=== PATIENT | male | born 1975 | race Caucasian/White ===

== ENCOUNTER → 2016-09-17 | Outpatient (CLI) | payer OTHER ==
--- NOTE | 2016-09-18 16:46 | XR ---
EXAMINATION TYPE: XR lumbosacral spine min 4V DATE OF EXAM: 09/17/2016 11:27 AM COMPARISON: 5 views HISTORY: 41-year-old male with low back pain increasing over 2 months TECHNIQUE: 5 views FINDINGS: There is mild endplate spondylosis anteriorly such as at L3-L4. Additional mild degenerative disc dis ease at T12-L1 with disc interspace narrowing and some endplate sclerosis. Facet arthropathy mid to l ower lumbar spine. No vertebral compression collapse. Alignment is maintained. IMPRESSION: Scattered mild degenerative disc disease. Facet arthropathy mid to lower lumbar spine. No vertebral c ompression collapse or malalignment.
== END | disposition home or self-care (01) ==
LOC: RADXRYALE 11:08
PROVIDERS: ATTEND Internal Medicine
DX: M51.36 Other intervertebral disc degeneration, lumbar region (principal); M46.96 Unspecified inflammatory spondylopathy, lumbar region
CPT/HCPCS: 72110

== ENCOUNTER 2020-05-24 14:43 | Emergency (ER) | payer OTHER ==
[2020-05-24 14:52] VITALS: BP 157/102; PULSE 99; RESP 18; TEMP 98.6
--- NOTE | 2020-05-24 15:17 | ED ---
Male Urogenital HPI - General Chief complaint: Urogenital Stated complaint: UTI Source: patient Mode of arrival: ambulatory Limitations: no limitations - History of Present Illness Initial comments: 44-year-old male presenting to emergency department with a chief complaint of discharge from the penis. Patient states he had surgery about 3 months ago and had a urinary catheter placed during the procedure. Patient reports ever since, he developed intermittent burning sensation with urination. Patient reports has gotten progressively worse as time went on. Patient reports today he squeezes his penis and noticed white discharge. Patient states he has no concern for STDs. He denies any testicular swelling, tenderness. He also reports some obstructive urinary symptoms like dribbling. Denies any night sweats fevers or chills. Denies any back pain or abdominal pain. - Related Data Home Medications Medication Instructions Recorded Confirmed Arginine [l-Arginine] 500 mg PO DAILY 05/24/20 05/24/20 Cyanocobalamin (Vitamin B-12) 10,000 mcg PO DAILY 05/24/20 05/24/20 [Vitamin B-12] Glimepiride [Amaryl] 4 mg PO DAILY 05/24/20 05/24/20 Omeprazole Magnesium 20 mg PO BID PRN 05/24/20 05/24/20 Pyridoxine HCl (Vitamin B6) 100 mg PO DAILY 05/24/20 05/24/20 [Vitamin B-6] metFORMIN HCL [Glucophage] 500 mg PO BID 05/24/20 05/24/20 Previous Rx's Medication Instructions Recorded Ciprofloxacin HCl [Cipro] 500 mg PO Q12HR #20 tablet 05/24/20 Allergies Allergy/AdvReac Type Severity Reaction Status Date / Time No Known Allergies Allergy Verified 05/24/20 15:41 Review of Systems ROS Statement: Those systems with pertinent positive or pertinent negative responses have been documented in the HPI. ROS Other: All systems not noted in ROS Statement are negative. Past Medical History Past Medical History: Asthma, Diabetes Mellitus, GERD/Reflux, Hypertension, Myocardial Infarction ([place]), Pneumonia, Sleep Apnea/CPAP/BIPAP Additional Past Medical History / Comment(s): 03-08-16 no cpap machine used, pancreatitis Last Myocardial Infarction Date:: History of Any Multi-Drug Resistant Organisms: None Reported Past Surgical History: Tonsillectomy Additional Past Surgical History / Comment(s): 03/08/16 heart cath stent to 1st diag Past Anesthesia/Blood Transfusion Reactions: No Reported Reaction Past Psychological History: No Psychological Hx Reported Smoking Status: Never smoker Past Alcohol Use History: Occasional Past Drug Use History: Marijuana - Past Family History Mother Family Medical History: Fibromyalgia, Osteoarthritis (OA) Additional Family Medical History / Comment(s): djd/hip replacement, von willebrand's, brother and sister had von willebrand's to. Father Family Medical History: CVA/TIA, Hyperlipidemia, Hypertension, Myocardial Infarction ([place]) Additional Family Medical History / Comment(s): boarderline diabetic Brother(s) Family Medical History: Myocardial Infarction ([place]) General Exam Limitations: no limitations General appearance: alert, in no apparent distress Head exam: Present: atraumatic, normocephalic, normal inspection Eye exam: Present: normal appearance, PERRL, EOMI Pupils: Present: normal accommodation ENT exam: Present: normal exam, normal oropharynx, mucous membranes moist Neck exam: Present: normal inspection, full ROM Respiratory exam: Present: normal lung sounds bilaterally. Absent: respiratory distress, wheezes, rales Cardiovascular Exam: Present: regular rate, normal rhythm, normal heart sounds exam: Present: normal inspection (White discharge from the penis). Absent: testicular tenderness, urethral discharge, scrotal swelling, vertical testicular lie Extremities exam: Present: normal inspection, full ROM, normal capillary refill Back exam: Present: normal inspection, full ROM Neurological exam: Present: alert, oriented X3, normal gait Psychiatric exam: Present: normal affect, normal mood Skin exam: Present: warm, dry, intact, normal color Course Vital Signs 05/24/20 14:48 Temperature 98.6 F Pulse Rate 99 Respiratory 18 Rate Blood Pressure 157/102 O2 Sat by Pulse 99 Oximetry Medical Decision Making - Medical Decision Making 44-year-old male presenting to emergency Department chief complaint of discharge from the penis. On physical examination, I noticed white discharge from the penis. Gonorrhea chlamydia testing pending. UA shows positive leukocyte esterase and white blood cells. Urine culture pending. Positive nitrates. Pa sarai will be started on Cipro to cover for E.coli. Will be discharged with a 10 day course of Cipro. Patient advised about the side effects of the medication. He was advised to avoid significant physical activity. States he has not taken his blood pressure medication today so his blood pressure may be high. Strict return parameters were thoroughly discussed with patient is understanding and agreeable. I advised him to follow up with a urologist for the obstructive urinary symptoms. Case discussed physician. - Lab Data Lab Results 05/24/20 Range/Units 15:19 Urine Color Yellow Urine Appearance Cloudy (Clear) Urine pH 6.0 (5.0-8.0) Ur Specific [place] 1.027 (1.001-1.035) Urine Protein Trace H (Negative) Urine Glucose (UA) Negative (Negative) Urine Ketones Trace H (Negative) Urine Blood Trace H (Negative) Urine Nitrite Positive (Negative) Urine Bilirubin Negative (Negative) Urine Urobilinogen <2.0 (<2.0) mg/dL Ur Leukocyte Esterase Large H (Negative) Urine RBC 16 H (0-5) /hpf Urine WBC >182 H (0-5) /hpf Urine Bacteria Many H (None) /hpf Urine Mucus Many H (None) /hpf Disposition Clinical Impression: Urinary tract infection Disposition: HOME SELF-CARE Condition: Stable Instructions (If sedation given, give patient instructions): Urinary Tract Infection in Men (ED) Additional Instructions: Take prescribed medication as directed. Follow-up with the primary care physician. Please return to the Emergency Department if symptoms worsen or any other concerns. Prescriptions: Ciprofloxacin HCl [Cipro] 500 mg PO Q12HR #20 tablet Is patient prescribed a controlled substance at d/c from ED?: No Referrals: Zahira Cartwright MD [Primary Care Provider] - 1-2 days Homer Fletcher MD [STAFF PHYSICIAN] - 1-2 days Time of Disposition: 16:13
[2020-05-24 15:36] LABS: Appearance,Urine Cloudy (Clear); Bacteria,Urine Many /hpf; Bilirubin,Urine Negative (Negative); Blood,Urine Trace (Negative); Color,Urine Yellow; Glucose,Urine (UA) Negative (Negative); Ketones,Urine Trace (Negative); Leukocyte Esterase,Urine Large (Negative); Mucus,Urine Many /hpf; Nitrite,Urine Positive (Negative); Protein,Urine Trace (Negative); RBC,Urine 16 /hpf (0-5); Specific Gravity,Urine 1.027 (1.001-1.035); Urobilinogen,Urine <2.0 mg/dL (<2.0); WBC,Urine >182 /hpf (0-5)
[2020-05-24] MEDS ORDERED: CIPROFLOXACIN HCL 500 MG TAB PO STA (16:12)
[2020-05-25 14:46] LABS: C. trachomatis,PCR Negative (Neg,Equiv); Chlamydia trachomatis Source Urine; N. gonorrhoeae,PCR Negative (Neg,Equiv); Neisseria Source Urine
== END 2020-05-24 16:29 | disposition home or self-care (01) ==
LOC: EC 14:43
DX: N39.0 Urinary tract infection, site not specified (principal); E11.9 Type 2 diabetes mellitus without complications; I10 Essential (primary) hypertension; J45.909 Unspecified asthma, uncomplicated; I25.2 Old myocardial infarction; G47.30 Sleep apnea, unspecified; Z79.899 Other long term (current) drug therapy; Z79.84 Long term (current) use of oral hypoglycemic drugs; Z99.89 Dependence on other enabling machines and devices
CPT/HCPCS: 81001; 87086; 87491; 87591; 99283

== ENCOUNTER 2020-06-07 08:30 | Emergency (ER) | payer BC, OTHER ==
[2020-06-07 08:35] VITALS: RESP 18; TEMP 98
[2020-06-07] MEDS ORDERED: ASPIRIN 81 MG PO STA (08:53)
--- NOTE | 2020-06-07 09:13 | ED ---
General Adult HPI - General Chief complaint: Recheck/Abnormal Lab/Rx Stated complaint: UTI-revisit Time Seen by Provider: 06/07/20 08:45 Source: patient, RN notes reviewed Mode of arrival: ambulatory Limitations: no limitations - History of Present Illness Initial comments: This a 44-year-old male presents emergency Department with multiple complaints. Patient was seen here approximately 10 days ago for urinary tract infection. Patient states that he took the antibiotic states it helped some but did not resolve. Patient's eyes dysuria, urinary frequency. Patient states started after having surgery at [facility]. Patient states he had blood with angina. Patient did have a catheter at that time. Patient states that she also has been having some intermittent chest pain which he had a myocardial infarction 4 years ago. Patient states he has one stent. He has no current chest pain states he did have pain last night. Patient states he has no associated shortness of breath no recent fevers or chills. No back pain no flank pain. - Related Data Home Medications Medication Instructions Recorded Confirmed Arginine [l-Arginine] 500 mg PO DAILY 05/24/20 06/07/20 Cyanocobalamin (Vitamin B-12) 10,000 mcg PO DAILY 05/24/20 06/07/20 [Vitamin B-12] Glimepiride [Amaryl] 4 mg PO DAILY 05/24/20 06/07/20 Omeprazole Magnesium 20 mg PO BID PRN 05/24/20 06/07/20 Pyridoxine HCl (Vitamin B6) 100 mg PO DAILY 05/24/20 06/07/20 [Vitamin B-6] metFORMIN HCL [Glucophage] 500 mg PO BID 05/24/20 06/07/20 Ascorbic Acid [Vitamin C] 3,000 mg PO DAILY 06/07/20 06/07/20 Black Seed Oil 6 ml PO DAILY 06/07/20 06/07/20 [place] 1 tab PO DAILY 06/07/20 06/07/20 Magnesium Oxide 800 mg PO DAILY 06/07/20 06/07/20 Thiamine [Vitamin B-1] 100 mg PO DAILY 06/07/20 06/07/20 Vitamin D Liquid 6,000 - 8,000 units SL DAILY 06/07/20 06/07/20 Zinc 50 mg PO DAILY 06/07/20 06/07/20 Previous Rx's Medication Instructions Recorded Ondansetron Odt [Zofran Odt] 4 mg PO Q8HR PRN #10 tab 06/07/20 Sulfamethox-Tmp 800-160Mg [Bactrim 1 each PO Q12HR #28 tab 06/07/20 Ds] Allergies Allergy/AdvReac Type Severity Reaction Status Date / Time No Known Allergies Allergy Verified 06/07/20 09:45 Review of Systems ROS Statement: Those systems with pertinent positive or pertinent negative responses have been documented in the HPI. ROS Other: All systems not noted in ROS Statement are negative. Past Medical History Past Medical History: Asthma, Diabetes Mellitus, GERD/Reflux, Hypertension, Myocardial Infarction ([place]), Pneumonia, Sleep Apnea/CPAP/BIPAP Additional Past Medical History / Comment(s): 03-08-16 no cpap machine used, pancreatitis Last Myocardial Infarction Date:: History of Any Multi-Drug Resistant Organisms: None Reported Past Surgical History: Tonsillectomy Additional Past Surgical History / Comment(s): 03/08/16 heart cath stent to 1st diag Past Anesthesia/Blood Transfusion Reactions: No Reported Reaction Past Psychological History: No Psychological Hx Reported Smoking Status: Never smoker Past Alcohol Use History: Occasional Past Drug Use History: Marijuana - Past Family History Mother Family Medical History: Fibromyalgia, Osteoarthritis (OA) Additional Family Medical History / Comment(s): djd/hip replacement, von willebrand's, brother and sister had von willebrand's to. Father Family Medical History: CVA/TIA, Hyperlipidemia, Hypertension, Myocardial Infarction ([place]) Additional Family Medical History / Comment(s): boarderline diabetic Brother(s) Family Medical History: Myocardial Infarction ([place]) General Exam Limitations: no limitations General appearance: alert, in no apparent distress Head exam: Present: atraumatic, normocephalic, normal inspection Eye exam: Present: normal appearance, PERRL, EOMI. Absent: scleral icterus, conjunctival injection, periorbital swelling ENT exam: Present: normal exam, normal oropharynx, mucous membranes moist, TM's normal bilaterally Neck exam: Present: normal inspection, full ROM. Absent: tenderness, meningismus, lymphadenopathy Respiratory exam: Present: normal lung sounds bilaterally. Absent: respiratory distress, wheezes, rales, rhonchi, stridor Cardiovascular Exam: Present: regular rate, normal rhythm, normal heart sounds. Absent: systolic murmur, diastolic murmur, rubs, gallop, clicks GI/Abdominal exam: Present: soft, normal bowel sounds. Absent: distended, tenderness, guarding, rebound, rigid Back exam: Absent: CVA tenderness (R), CVA tenderness (L) Neurological exam: Present: alert, oriented X3 Skin exam: Present: warm, dry, intact, normal color. Absent: rash Course Vital Signs 06/07/20 06/07/20 08:31 10:11 Temperature 98.0 F Pulse Rate 90 87 Respiratory 18 18 Rate Blood Pressure 146/96 148/105 O2 Sat by Pulse 98 98 Oximetry EKG Findings - EKG Comments: EKG Findings:: EKG performed at 9:04 normal sinus rhythm rate 93 SD 156 QRS 96 QT/ QTC 360/447 Medical Decision Making - Medical Decision Making Patient's lab reviewed patient has a mild packages coronary tract infection. Patient will be placed on a 2 week course of oral antibiotics. Patient remains to be symptom-free for chest pain. Patient's pain more related to his mild pancreatitis which she has a history of. Patient will continue her liquid diet, antibiotics and close follow-up. Patient agrees a plan patient prefers to go home at this time. - Lab Data Result diagrams: 06/07/20 09:30 06/07/20 09:30 Lab Results 06/07/20 06/07/20 06/07/20 Range/Units 09:18 09:30 09:30 WBC 8.8 (3.8-10.6) k/uL RBC 5.41 (4.30-5.90) m/uL Hgb 15.9 (13.0-17.5) gm/dL Hct 47.1 (39.0-53.0) % MCV 87.0 (80.0-100.0) fL MCH 29.3 (25.0-35.0) pg MCHC 33.7 (31.0-37.0) g/dL RDW 13.6 (11.5-15.5) % Plt Count 318 (150-450) k/uL MPV 6.7 Neutrophils % 65 % Lymphocytes % 27 % Monocytes % 4 % Eosinophils % 1 % Basophils % 1 % Neutrophils # 5.7 (1.3-7.7) k/uL Lymphocytes # 2.4 (1.0-4.8) k/uL Monocytes # 0.4 (0-1.0) k/uL Eosinophils # 0.1 (0-0.7) k/uL Basophils # 0.1 (0-0.2) k/uL PT 10.0 (9.0-12.0) sec INR 0.9 (<1.2) APTT 23.8 (22.0-30.0) sec D-Dimer <0.17 (<0.60) mg/L FEU Sodium (137-145) mmol/L Potassium (3.5-5.1) mmol/L Chloride (98-107) mmol/L Carbon Dioxide (22-30) mmol/L Anion Gap mmol/L BUN (9-20) mg/dL Creatinine (0.66-1.25) mg/dL Est GFR (CKD-EPI)AfAm (>60 ml/min/1.73 sqM) Est GFR (CKD-EPI)NonAf (>60 ml/min/1.73 sqM) Glucose (74-99) mg/dL Plasma Lactic Acid Manuel (0.7-2.0) mmol/L Calcium (8.4-10.2) mg/dL Magnesium (1.6-2.3) mg/dL Total Bilirubin (0.2-1.3) mg/dL AST (17-59) U/L ALT (4-49) U/L Alkaline Phosphatase (38-126) U/L Troponin I (0.000-0.034) ng/mL Total Protein (6.3-8.2) g/dL Albumin (3.5-5.0) g/dL Lipase (23-300) U/L Urine Color Yellow Urine Appearance Cloudy (Clear) Urine pH 5.5 (5.0-8.0) Ur Specific [place] 1.026 (1.001-1.035) Urine Protein Negative (Negative) Urine Glucose (UA) Negative (Negative) Urine Ketones Trace H (Negative) Urine Blood Negative (Negative) Urine Nitrite Negative (Negative) Urine Bilirubin Negative (Negative) Urine Urobilinogen <2.0 (<2.0) mg/dL Ur Leukocyte Esterase Large H (Negative) Urine RBC 13 H (0-5) /hpf Urine WBC 101 H (0-5) /hpf Urine WBC Clumps Few H (None) /hpf Ur Squamous Epith Cells 1 (0-4) /hpf Urine Bacteria Rare H (None) /hpf Urine Mucus Occasional H (None) /hpf 06/07/20 06/07/20 06/07/20 Range/Units 09:30 09:30 09:30 WBC (3.8-10.6) k/uL RBC (4.30-5.90) m/uL Hgb (13.0-17.5) gm/dL Hct (39.0-53.0) % MCV (80.0-100.0) fL MCH (25.0-35.0) pg MCHC (31.0-37.0) g/dL RDW (11.5-15.5) % Plt Count (150-450) k/uL MPV Neutrophils % % Lymphocytes % % Monocytes % % Eosinophils % % Basophils % % Neutrophils # (1.3-7.7) k/uL Lymphocytes # (1.0-4.8) k/uL Monocytes # (0-1.0) k/uL Eosinophils # (0-0.7) k/uL Basophils # (0-0.2) k/uL PT (9.0-12.0) sec INR (<1.2) APTT (22.0-30.0) sec D-Dimer (<0.60) mg/L FEU Sodium 136 L (137-145) mmol/L Potassium 4.5 (3.5-5.1) mmol/L Chloride 101 (98-107) mmol/L Carbon Dioxide 24 (22-30) mmol/L Anion Gap 11 mmol/L BUN 28 H (9-20) mg/dL Creatinine 0.74 (0.66-1.25) mg/dL Est GFR (CKD-EPI)AfAm >90 (>60 ml/min/1.73 sqM) Est GFR (CKD-EPI)NonAf >90 (>60 ml/min/1.73 sqM) Glucose 191 H (74-99) mg/dL Plasma Lactic Acid Manuel 1.6 (0.7-2.0) mmol/L Calcium 9.8 (8.4-10.2) mg/dL Magnesium 1.8 (1.6-2.3) mg/dL Total Bilirubin 0.4 (0.2-1.3) mg/dL AST 26 (17-59) U/L ALT 33 (4-49) U/L Alkaline Phosphatase 85 (38-126) U/L Troponin I <0.012 (0.000-0.034) ng/mL Total Protein 7.0 (6.3-8.2) g/dL Albumin 4.5 (3.5-5.0) g/dL Lipase 376 H (23-300) U/L Urine Color Urine Appearance (Clear) Urine pH (5.0-8.0) Ur Specific [place] (1.001-1.035) Urine Protein (Negative) Urine Glucose (UA) (Negative) Urine Ketones (Negative) Urine Blood (Negative) Urine Nitrite (Negative) Urine Bilirubin (Negative) Urine Urobilinogen (<2.0) mg/dL Ur Leukocyte Esterase (Negative) Urine RBC (0-5) /hpf Urine WBC (0-5) /hpf Urine WBC Clumps (None) /hpf Ur Squamous Epith Cells (0-4) /hpf Urine Bacteria (None) /hpf Urine Mucus (None) /hpf Disposition Clinical Impression: Urinary tract infection, Pancreatitis Disposition: HOME SELF-CARE Condition: Stable Instructions (If sedation given, give patient instructions): Urinary Tract Infection in Men (ED) Additional Instructions: Please return to the Emergency Department if symptoms worsen or any other concerns. Prescriptions: Sulfamethox-Tmp 800-160Mg [Bactrim Ds] 1 each PO Q12HR #28 tab Ondansetron Odt [Zofran Odt] 4 mg PO Q8HR PRN #10 tab PRN Reason: Nausea Is patient prescribed a controlled substance at d/c from ED?: No Referrals: Neymar Oviedo MD [Primary Care Provider] - 1-2 days Time of Disposition: 10:47
[2020-06-07 09:42] LABS: Basophils # (A) 0.1 k/uL (0-0.2); Basophils % (A) 1 %; Eosinophils # (A) 0.1 k/uL (0-0.7); Eosinophils % (A) 1 %; HCT 47.1 % (39.0-53.0); HGB 15.9 gm/dL (13.0-17.5); Lymphocytes # (A) 2.4 k/uL (1.0-4.8); Lymphocytes % (A) 27 %; MCH 29.3 pg (25.0-35.0); MCHC 33.7 g/dL (31.0-37.0); Mean Platelet Volume 6.7; Monocytes # (A) 0.4 k/uL (0-1.0); Monocytes % (A) 4 %; Neutrophils # (A) 5.7 k/uL (1.3-7.7); Neutrophils % (A) 65 %; Platelet Count 318 k/uL (150-450); RBC 5.41 m/uL (4.30-5.90); RDW 13.6 % (11.5-15.5); WBC 8.8 k/uL (3.8-10.6)
--- NOTE | 2020-06-07 09:42 | XR ---
EXAMINATION TYPE: XR chest 2V DATE OF EXAM: 06/07/2020 COMPARISON: Chest x-ray April 11, 2016. HISTORY: Chest pain. TECHNIQUE: Frontal and lateral views of the chest are obtained. FINDINGS: There is no new suspicious focal air space opacity, pleural effusion, or pneumothorax seen . The cardiac silhouette size remains within normal limits. Slight underlying scoliotic curvature re demonstrated. IMPRESSION: No acute cardiopulmonary process. No significant change from prior.
[2020-06-07 09:43] LABS: Appearance,Urine Cloudy (Clear); Bacteria,Urine Rare /hpf; Bilirubin,Urine Negative (Negative); Blood,Urine Negative (Negative); Color,Urine Yellow; Glucose,Urine (UA) Negative (Negative); Ketones,Urine Trace (Negative); Leukocyte Esterase,Urine Large (Negative); Mucus,Urine Occasional /hpf; Nitrite,Urine Negative (Negative); PH, Urine 5.5 (5.0-8.0); Protein,Urine Negative (Negative); RBC,Urine 13 /hpf (0-5); Specific Gravity,Urine 1.026 (1.001-1.035); Squamous Epithelial Cell,Urine 1 /hpf (0-4); Urobilinogen,Urine <2.0 mg/dL (<2.0); WBC,Urine 101 /hpf (0-5)
[2020-06-07 09:52] LABS: ALT 33 U/L (4-49); AST 26 U/L (17-59); African American GFR (CKD) >90 (>60 ml/min/1.73 sqM); Albumin 4.5 g/dL (3.5-5.0); Alkaline Phosphatase 85 U/L (38-126); Anion Gap 11 mmol/L; Blood Urea Nitrogen 28 mg/dL (9-20); Calcium 9.8 mg/dL (8.4-10.2); Carbon Dioxide 24 mmol/L (22-30); Chloride 101 mmol/L (98-107); Glucose 191 mg/dL (74-99); Lipase 376 U/L (23-300); Magnesium 1.8 mg/dL (1.6-2.3); Non-African American GFR(CKD) >90 (>60 ml/min/1.73 sqM); Potassium 4.5 mmol/L (3.5-5.1); Sodium 136 mmol/L (137-145); Total Bilirubin 0.4 mg/dL (0.2-1.3)
[2020-06-07 10:01] LABS: INR 0.9 (<1.2); Partial Thromboplastin Time 23.8 sec (22.0-30.0)
[2020-06-07 10:02] LABS: D-Dimer <0.17 mg/L FEU (<0.60)
[2020-06-07 10:12] VITALS: BP 148/105; PULSE 87
[2020-06-07] MEDS ORDERED: ACET/COD 300 MG/30 MG STARTER PACK 6 TAB BTL PO STA (10:48)
== END 2020-06-07 11:02 | disposition home or self-care (01) ==
LOC: EC 08:30
DX: N39.0 Urinary tract infection, site not specified (principal); K85.90 Acute pancreatitis without necrosis or infection, unspecified; E11.9 Type 2 diabetes mellitus without complications; K21.9 Gastro-esophageal reflux disease without esophagitis; I10 Essential (primary) hypertension; G47.33 Obstructive sleep apnea (adult) (pediatric); I25.2 Old myocardial infarction; Z79.84 Long term (current) use of oral hypoglycemic drugs; Z79.899 Other long term (current) drug therapy; Z99.89 Dependence on other enabling machines and devices
CPT/HCPCS: 36415; 93005; 85379; 80053; 83605; 83690; 83735; 84484; 85025; 85610; 85730; 81001; 87040; 87086; 71046; 99284; 96365; J0696

== ENCOUNTER 2020-10-21 21:43 | Observation (INO) | payer BC ==
--- NOTE | 2020-10-21 22:10 | ED ---
Chest Pain HPI - General Chief Complaint: Chest Pain Stated Complaint: Chest Pain Time Seen by Provider: 10/21/20 21:53 Source: patient Mode of arrival: wheelchair Limitations: no limitations - Related Data Home Medications Medication Instructions Recorded Confirmed Glimepiride [Amaryl] 4 mg PO DAILY 05/24/20 10/21/20 metFORMIN HCL [Glucophage] 500 mg PO BID 05/24/20 10/21/20 Gabapentin [Neurontin] 400 mg PO TID PRN 10/21/20 10/21/20 Allergies Allergy/AdvReac Type Severity Reaction Status Date / Time No Known Allergies Allergy Verified 10/21/20 23:22 Review of Systems ROS Statement: Those systems with pertinent positive or pertinent negative responses have been documented in the HPI. ROS Other: All systems not noted in ROS Statement are negative. EKG Findings - EKG Comments: EKG Findings:: EKG is sinus rhythm 96 [place] 132 QRS 92 QTC 427 Past Medical History Past Medical History: Asthma, Diabetes Mellitus, GERD/Reflux, Hypertension, M yocardial Infarction ([place]), Pneumonia, Sleep Apnea/CPAP/BIPAP Additional Past Medical History / Comment(s): 03-08-16 no cpap machine used, pancreatitis Last Myocardial Infarction Date:: History of Any Multi-Drug Resistant Organisms: None Reported Past Surgical History: Tonsillectomy Additional Past Surgical History / Comment(s): 03/08/16 heart cath stent to 1st diag Past Anesthesia/Blood Transfusion Reactions: No Reported Reaction Past Psychological History: No Psychological Hx Reported Smoking Status: Never smoker Past Alcohol Use History: Occasional Past Drug Use History: Marijuana - Past Family History Mother Family Medical History: Fibromyalgia, Osteoarthritis (OA) Additional Family Medical History / Comment(s): djd/hip replacement, von willebrand's, brother and sister had von willebrand's to. Father Family Medical History: CVA/TIA, Hyperlipidemia, Hypertension, Myocardial Infarction ([place]) Additional Family Medical History / Comment(s): boarderline diabetic Brother(s) Family Medical History: Myocardial Infarction ([place]) General Exam Limitations: no limitations Course Vital Signs 10/21/20 10/21/20 10/21/20 21:48 21:54 23:08 Temperature 98.4 F Pulse Rate 101 H 94 92 Respiratory 18 18 18 Rate Blood Pressure 137/91 124/89 134/100 O2 Sat by Pulse 99 96 99 Oximetry Disposition Clinical Impression: Unstable angina pectoris, Chest pain Disposition: ADMITTED IP TO THIS HOSP Condition: Undetermined Is patient prescribed a controlled substance at d/c from ED?: No Referrals: Neymar Oviedo MD [Primary Care Provider] - 1-2 days
--- NOTE | 2020-10-21 22:20 | XR ---
EXAMINATION TYPE: XR chest 2V DATE OF EXAM: 10/21/2020 COMPARISON: 06/07/2020 HISTORY: Chest pain TECHNIQUE: FINDINGS: Heart and mediastinum are normal. Lungs are clear. Diaphragm is normal. Bony thorax is inta ct. There are chest leads. IMPRESSION: Normal chest. No change.
[2020-10-21 22:23] LABS: Basophils # (A) 0.1 k/uL (0-0.2); Basophils % (A) 1 %; Eosinophils # (A) 0.2 k/uL (0-0.7); Eosinophils % (A) 2 %; HCT 45.2 % (39.0-53.0); HGB 15.5 gm/dL (13.0-17.5); Lymphocytes # (A) 3.4 k/uL (1.0-4.8); Lymphocytes % (A) 31 %; MCHC 34.2 g/dL (31.0-37.0); MCV 87.9 fL (80.0-100.0); Mean Platelet Volume 6.8; Monocytes # (A) 0.5 k/uL (0-1.0); Monocytes % (A) 5 %; Neutrophils # (A) 6.7 k/uL (1.3-7.7); Neutrophils % (A) 61 %; Platelet Count 294 k/uL (150-450); RBC 5.15 m/uL (4.30-5.90); RDW 13.2 % (11.5-15.5); WBC 11.1 k/uL (3.8-10.6)
[2020-10-21 22:38] LABS: INR 0.9 (<1.2)
[2020-10-21 22:39] LABS: ALT 19 U/L (4-49); AST 21 U/L (17-59); African American GFR (CKD) >90 (>60 ml/min/1.73 sqM); Albumin 4.6 g/dL (3.5-5.0); Alkaline Phosphatase 76 U/L (38-126); Anion Gap 11 mmol/L; Blood Urea Nitrogen 25 mg/dL (9-20); Calcium 10.1 mg/dL (8.4-10.2); Carbon Dioxide 24 mmol/L (22-30); Chloride 104 mmol/L (98-107); Glucose 110 mg/dL (74-99); Lipase 121 U/L (23-300); Magnesium 1.8 mg/dL (1.6-2.3); Non-African American GFR(CKD) >90 (>60 ml/min/1.73 sqM); Partial Thromboplastin Time 24.2 sec (22.0-30.0); Potassium 4.4 mmol/L (3.5-5.1); Prothrombin Time 9.7 sec (9.0-12.0); Sodium 139 mmol/L (137-145); Total Bilirubin 0.3 mg/dL (0.2-1.3); Total Protein 6.8 g/dL (6.3-8.2)
[2020-10-21 22:44] LABS: D-Dimer <0.17 mg/L FEU (<0.60)
[2020-10-21] MEDS ORDERED: MORPHINE SULFATE 4 MG/ML SYRINGE IVP STA (22:58)
[2020-10-21] MEDS ORDERED: ASPIRIN 81 MG PO STA (23:03)
[2020-10-21] MEDS ORDERED: NITROGLYCERIN SL TABS 0.4 MG TAB SUBLINGUAL PRN (23:03)
[2020-10-22] MEDS: MORPHINE SULFATE 4 MG/ML SYRINGE IVP PRN ×6 (01:55→22:02)
[2020-10-22 07:10] LABS: Glucose,Whole Blood 127 mg/dL (75-99)
[2020-10-22] MEDS: ONDANSETRON 4 MG TAB PO PRN (08:30)
[2020-10-22] MEDS ORDERED: ASPIRIN 325 MG TAB PO SCH (09:00)
[2020-10-22] MEDS ORDERED: ASPIRIN 81 MG PO SCH (09:00)
--- NOTE | 2020-10-22 09:04 | P.CRDCN ---
History of Present Illness Consult date: 10/22/20 History of present illness: HISTORY OF PRESENT ILLNESS: This is a 45-year-old male with a past medical history significant for hypertension, hyperlipidemia, coronary artery disease with previous stenting to the diagonal in 2016, and daily marijuana use. Patient used to see Dr. Swartz, however he states he has not followed up in the office in a few years. We have been asked to see the patient in consultation for chest pain. Patient examined at the bedside. Patient states over the past week he has been having intermittent chest pain. He states the pain is in the middle of his chest. He states at times it feels like a burning sensation and other times it feels like a heavy pressure. He does report some radiation into the jaw. Denies radiation to the arms. He reports some lower back pain and discomfort into his legs. Patient reports a little bit of nausea when he has these episodes of chest pain. He states with exertion the pain goes away and the pain seems to be worse when he is at rest. He does report some chest discomfort with deep inspiration. He also reports the pain is worse with chest wall palpation. Patient states he is not taking any cardiac medications. He states he has been on a vitamin regimen for the past 6 months and is attempting a more holistic approach for his health. Patient states he has not had a stress test since his stenting in 2016. EKG reveals sinus mechanism with no signs of acute ischemia Chest xray normal chest. No change. Laboratory data: WBC 11.1. Hemoglobin 15.5. Platelet Count 294. D-dimer 0.17. Sodium 139. Potassium 4.4. BUN 25. Creatinine 0.65. Troponin negative 3. Current home cardiac medications include none REVIEW OF SYSTEMS: At the time of my exam: CONSTITUTIONAL: Denies fever or chills. HEENT: Denies blurred vision, vision changes, or eye pain. Denies hemoptysis CARDIOVASCULAR: Denies chest pain. Denies orthopnea. Denies PND. Denies palpitations RESPIRATORY: Denies shortness of breath. GASTROINTESTINAL: Denies abdominal pain. Denies nausea or vomiting. HEMATOLOGIC: Denies bleeding disorders. GENITOURINARY: Denies any blood in urine. SKIN: Denies pruitis. Denies rash. PHYSICAL EXAM: VITAL SIGNS: Reviewed. GENERAL: Well-developed in no acute distress. HEENT: Head is normocephalic. Pupils are equal, round. Sclerae anicteric. Mucous membranes of the mouth are moist. Neck supple. No JVD or thyromegaly LUNGS: Respirations even and unlabored. Lungs essentially clear to auscultation bilaterally. HEART: Regular rate and rhythm. S1 and S2 heard. ABDOMEN: Soft. Nondistended. Nontender. EXTREMITIES: Normal range of motion. No clubbing or cyanosis. Peripheral pulses intact. No lower extremity edema NEUROLOGIC: Awake and alert. Oriented x 3. ASSESSMENT: Chest pain, with typical and atypical features, troponin negative 3 Coronary artery disease with previous PCI to diagonal in 2016 History of hypertension History of hyperlipidemia Daily marijuana use PLAN: An acute coronary and has been ruled out Obtain 2-D echo to assess cardiac structure and function Continue aspirin 81 mg daily Begin Lipitor 20 mg daily and metoprolol tartrate 12.5 mg twice a day Continue to monitor blood pressure and telemetry Patient will be reevaluated tomorrow. Possible stress test on Saturday versus discharge home with outpatient follow-up Further recommendations pending patient's course Nurse practitioner note has been reviewed by physician. Signing provider agrees with the documented findings, assessment, and plan of care. Past Medical History Past Medical History: Diabetes Mellitus, GERD/Reflux, Hypertension, Myocardial Infarction ([place]), Pneumonia, Sleep Apnea/CPAP/BIPAP Additional Past Medical History / Comment(s): 03-08-16 no cpap machine used, pancreatitis Last Myocardial Infarction Date:: History of Any Multi-Drug Resistant Organisms: None Reported Past Surgical History: Tonsillectomy Additional Past Surgical History / Comment(s): 03/08/16 heart cath stent to 1st diag Past Anesthesia/Blood Transfusion Reactions: No Reported Reaction Past Psychological History: No Psychological Hx Reported Additional Psychological History / Comment(s): high function autistic Smoking Status: Former smoker Past Alcohol Use History: Occasional Additional Past Alcohol Use History / Comment(s): quit in 2009 Past Drug Use History: Marijuana Additional Drug Use History / Comment(s): daily use - Past Family History Mother Family Medical History: Fibromyalgia, Osteoarthritis (OA) Additional Family Medical History / Comment(s): djd/hip replacement, von willebrand's, brother and sister had von willebrand's to. Father Family Medical History: CVA/TIA, Hyperlipidemia, Hypertension, Myocardial Infarction ([place]) Additional Family Medical History / Comment(s): boarderline diabetic Brother(s) Family Medical History: Myocardial Infarction ([place]) Medications and Allergies Home Medications Medication Instructions Recorded Confirmed Type Glimepiride [Amaryl] 4 mg PO DAILY 05/24/20 10/21/20 History metFORMIN HCL [Glucophage] 500 mg PO BID 05/24/20 10/21/20 History Gabapentin [Neurontin] 400 mg PO TID PRN 10/21/20 10/21/20 History Allergies Allergy/AdvReac Type Severity Reaction Status Date / Time No Known Allergies Allergy Verified 10/21/20 23:22 Physical Exam Vitals: Vital Signs Temp Pulse Pulse Resp BP BP Pulse Ox 10/22/20 07:00 97.6 F 71 18 159/103 97 10/22/20 02:00 77 16 10/22/20 01:38 98.6 F 77 16 133/92 99 10/21/20 23:08 92 18 134/100 99 10/21/20 21:54 94 18 124/89 96 10/21/20 21:48 98.4 F 101 H 18 137/91 99 Intake and Output 10/21/20 10/22/20 10/22/20 22:59 06:59 14:59 Other: Voiding Method Toilet # Voids 2 Weight 90.718 kg 90.718 kg Results 10/21/20 22:13 10/21/20 22:13 Cardiac Enzymes 10/21/20 10/21/20 10/22/20 Range/Units 22:13 22:13 01:25 AST 21 (17-59) U/L Troponin I <0.012 <0.012 (0.000-0.034) ng/mL 10/22/20 Range/Units 04:08 AST (17-59) U/L Troponin I <0.012 (0.000-0.034) ng/mL Coagulation 10/21/20 Range/Units 22:13 PT 9.7 (9.0-12.0) sec APTT 24.2 (22.0-30.0) sec CBC 10/21/20 Range/Units 22:13 WBC 11.1 H (3.8-10.6) k/uL RBC 5.15 (4.30-5.90) m/uL Hgb 15.5 (13.0-17.5) gm/dL Hct 45.2 (39.0-53.0) % Plt Count 294 (150-450) k/uL Comprehensive Metabolic Panel 10/21/20 Range/Units 22:13 Sodium 139 (137-145) mmol/L Potassium 4.4 (3.5-5.1) mmol/L Chloride 104 (98-107) mmol/L Carbon Dioxide 24 (22-30) mmol/L BUN 25 H (9-20) mg/dL Creatinine 0.65 L (0.66-1.25) mg/dL Glucose 110 H (74-99) mg/dL Calcium 10.1 (8.4-10.2) mg/dL AST 21 (17-59) U/L ALT 19 (4-49) U/L Alkaline Phosphatase 76 (38-126) U/L Total Protein 6.8 (6.3-8.2) g/dL Albumin 4.6 (3.5-5.0) g/dL Current Medications Generic Name Dose Route Start Last Admin Trade Name Freq PRN Reason Stop Dose Admin Aspirin 325 mg 10/22/20 09:00 10/22/20 08:30 Aspirin 325 Mg Tab PO 325 mg DAILY JOSE Administration Morphine Sulfate 4 mg 10/21/20 22:58 10/22/20 05:57 Morphine Sulfate 4 Mg/Ml Syringe IVP 4 mg Q4HR PRN Administration Pain Nitroglycerin 0.4 mg 10/21/20 23:03 Nitroglycerin Sl Tabs 0.4 Mg Tab SUBLINGUAL Q5M PRN Chest Pain Ondansetron HCl 4 mg 10/22/20 07:43 10/22/20 08:30 Ondansetron 4 Mg Tab PO 4 mg Q4HR PRN Administration Nausea And Vomiting Intake and Output 10/21/20 10/22/20 10/22/20 22:59 06:59 14:59 Other: Voiding Method Toilet # Voids 2 Weight 90.718 kg 90.718 kg 10/21/20 22:13 10/21/20 22:13
[2020-10-22 10:02] LABS: Chol/HDL Ratio 5.17; LDL Cholesterol,Calculated 118.8 mg/dL (0.0-131.0); VLDL Calculation 27.2 mg/dL (5.00-40.00)
[2020-10-22] MEDS ORDERED: GABAPENTIN 400 MG CAP PO PRN (10:42)
[2020-10-22] MEDS ORDERED: CALCIUM CARBONATE LIQUID 500 MG/5 ML CUP PO PRN (11:12)
[2020-10-22] MEDS: FAMOTIDINE 20 MG TAB PO SCH ×2 (11:35→19:35)
[2020-10-22] MEDS: metFORMIN 500 MG TAB PO SCH ×2 (11:35→19:35)
[2020-10-22] MEDS: GLIMEPIRIDE 2 MG TAB PO SCH (11:37)
[2020-10-22] MEDS: ENOXAPARIN 40 MG/0.4 ML SYRINGE SQ SCH (11:38)
--- NOTE | 2020-10-22 12:07 | CT ---
EXAMINATION TYPE: CT lumbar spine wo con DATE OF EXAM: 10/22/2020 COMPARISON: None HISTORY: Acute low back pain CT DLP: 963.20 mGycm CONTRAST: Unenhanced CT of the lumbar spine is performed . Unenhanced CT of the lumbar spine was performed. Bone and soft tissue window settings are submitted as well as coronal and sagittal reconstructions. L1-L2: Normal disc space height. No disc herniation protrusion or central stenosis. No facet joint arthropathy. No evidence for foraminal encroachment. L2-L3: Normal disc space height. No disc herniation protrusion or central stenosis. No facet joint arthropathy. No evidence for foraminal encroachment. L3-L4: Mild degenerative disc space narrowing with mild posterior disc bulge. No herniation protrusio n or central stenosis. Mild facet joint arthropathy without foraminal encroachment. Mild ventral spon dylosis. L4-L5: Mild degenerative disc space narrowing with mild posterior disc bulge. No herniation protrusio n or central stenosis. Mild facet joint arthropathy without foraminal encroachment. Mild ventral spon dylosis. L5-S1: Normal disc space height. No disc herniation protrusion or central stenosis. No facet joint arthropathy. No evidence for foraminal encroachment. No paraspinal masses are identified. Lumbar segments are free if fracture. IMPRESSION: 1. Degenerative disc disease and disc bulging at L3-4 and L4-5.
--- NOTE | 2020-10-22 12:32 | XR ---
EXAMINATION TYPE: XR lumbosacral spine min 4V DATE OF EXAM: 10/22/2020 COMPARISON: 09/17/2016 HISTORY: Back pain TECHNIQUE: 5 views FINDINGS: The lumbar vertebra have normal alignment. Posterior elements are intact. There is no compr ession fracture. Abdominal aorta is atheromatous. The sacroiliac joints are intact. IMPRESSION: Negative lumbar spine exam. No fracture. No change.
[2020-10-22] MEDS: METOPROLOL TARTRATE 12.5 MG TAB PO SCH ×2 (13:02→19:36)
[2020-10-22] MEDS: SODIUM CHLORIDE 0.9% 1,000 ML IV SCH (13:10)
--- NOTE | 2020-10-22 20:14 | P.HPIM ---
History of Present Illness H&P Date: 10/22/20 Chief Complaint: Multiple complaints History of presenting complaint: This is a pleasant 45-year-old patient who follows with Dr. Oviedo. Patient's chronic stable medical conditions include diabetes, GERD, coronary artery disease with stent of the first diagonal in 2016,. Patient states he has not been diagnosed with sleep apnea. Patient presents with multiple symptoms. For 2 days he's been having infraclavicular left-sided constant pain. It is worse and body movement and on pressing. Does not radiate. Not related to exertion. No shortness of breath or dizziness. Also patient complaining of a tightness for 1 week. Decreased appetite. Slight nausea. No change in bowel pattern. Denies any fever and chills. Patient states he is sleeping a bit excessively. Also for last 3 days he's been having increasing low back pain just: Rather suddenly. The pain does radiate to the back of both eyes. No change in bowel or urinary pattern. Patient is able to get about. Patient's international [place] is very reserved about taking any medications. He takes multiple supplements. Review of systems: GEN.: Tired, sleepy EYES: None HEENT: None NECK: None RESPIRATORY: None CARDIOVASCULAR: As above GASTROINTESTINAL: None GENITOURINARY: None MUSCULOSKELETAL: As above LYMPHATICS: None HEMATOLOGICAL: None PSYCHIATRY: Bit anxious NEUROLOGICAL: Trouble sleeping Past medical history to include: Diabetes, GERD, pancreatitis, coronary artery disease stent to the diagonal in 2016, highly functioning autistic, marijuana use Social history: Lives with his girlfriend. 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 Smokes 4-5 marijuana joints a day Family history: Osteoarthritis, von Willebrand-brother and sister Physical examination: VITAL SIGNS: 98.4, 94, 18, 124/89, 96% room air GENERAL: BMI 26.4, laying in bed, but anxious. EYES: Pupils equal. Conjunctiva normal. HEENT: External appearance of nose and ears normal, oral cavity grossly normal. NECK: JVD not raised; masses not palpable. HEART: First and second heart sounds are normal; no edema. LUNGS: Respiratory rate normal; clear to auscultation. ABDOMEN: Soft, nontender, liver spleen not palpable, no masses palpable. MUSCULAR skeletal: Reproducible tenderness in the left upper costochondral junction PSYCH: [Alert and oriented x3; mood and affect slightly anxious l. NEUROLOGICAL: Cranial nerves grossly intact; no facial asymmetry, power and sensation grossly intact. LYMPHATICS: No lymph nodes palpable in the axilla and neck INVESTIGATIONS, reviewed in the clinical context: WBC 11.1 hemoglobin 15.5 platelets 294 potassium 4.4 BUN 25 creatinine 0.65 Troponin I 3 negative LDL 118 EKG tracing personally reviewed by me-normal sinus rhythm, [facility] Chest x-ray film personally reviewed by me-clear X-ray lumbar spine: Negative Lumbar spine computed tomography scan: DJD and disc bulging at L3-L4/L4-L5 Assessment and plan: -Left-sided chest pain in a patient with known coronary artery disease. Patient pain is more localized and appears to be acute costochondritis. Given his history of coronary artery disease need to rule out same. Troponins are negative, EKG is unremarkable -Coronary artery disease with prior history of stent in 2015 Aspirin, Lipitor, Lopressor -Diabetes mellitus type 2 on oral hypoglycemic Follow Accu-Cheks -GERD -Chronic marijuana use Patient advised against the same -Acute low back pain that came on 2 days ago in the lumbar area. With radiculopathy bilateral. Computed tomography scan shows disc bulging at L3-L4 and L4-L5. We will use NSAID. If no improvement will then have the patient follow-up with orthopedic spine.. Cardiology was consulted. Home medications resumed. Lipitor metoprolol added by currently. 2-D echo pending. Care was discussed with the patient. Naproxen. Past Medical History Past Medical History: Diabetes Mellitus, GERD/Reflux, Hypertension, Myocardial Infarction ([place]), Pneumonia, Sleep Apnea/CPAP/BIPAP Additional Past Medical History / Comment(s): 03-08-16 no cpap machine used, pancreatitis Last Myocardial Infarction Date:: History of Any Multi-Drug Resistant Organisms: None Reported Past Surgical History: Tonsillectomy Additional Past Surgical History / Comment(s): 03/08/16 heart cath stent to 1st diag Past Anesthesia/Blood Transfusion Reactions: No Reported Reaction Past Psychological History: No Psychological Hx Reported Additional Psychological History / Comment(s): high function autistic Smoking Status: Former smoker Past Alcohol Use History: Occasional Additional Past Alcohol Use History / Comment(s): quit in 2009 Past Drug Use History: Marijuana Additional Drug Use History / Comment(s): daily use - Past Family History Mother Family Medical History: Fibromyalgia, Osteoarthritis (OA) Additional Family Medical History / Comment(s): djd/hip replacement, von willebrand's, brother and sister had von willebrand's to. Father Family Medical History: CVA/TIA, Hyperlipidemia, Hypertension, Myocardial Infarction ([place]) Additional Family Medical History / Comment(s): boarderline diabetic Brother(s) Family Medical History: Myocardial Infarction ([place]) Medications and Allergies Home Medications Medication Instructions Recorded Confirmed Type Glimepiride [Amaryl] 4 mg PO DAILY 05/24/20 10/21/20 History metFORMIN HCL [Glucophage] 500 mg PO BID 05/24/20 10/21/20 History Gabapentin [Neurontin] 400 mg PO TID PRN 10/21/20 10/21/20 History Allergies Allergy/AdvReac Type Severity Reaction Status Date / Time No Known Allergies Allergy Verified 10/21/20 23:22 Physical Exam Vitals: Vital Signs Temp Pulse Pulse Resp BP BP Pulse Ox 10/22/20 07:00 97.6 F 71 18 159/103 97 10/22/20 02:00 77 16 10/22/20 01:38 98.6 F 77 16 133/92 99 10/21/20 23:08 92 18 134/100 99 10/21/20 21:54 94 18 124/89 96 10/21/20 21:48 98.4 F 101 H 18 137/91 99 Intake and Output 10/21/20 10/22/20 10/22/20 22:59 06:59 14:59 Other: Voiding Method Toilet # Voids 2 Weight 90.718 kg 90.718 kg Results CBC & Chem 7: 10/21/20 22:13 10/21/20 22:13 Labs: Abnormal Lab Results - Last 24 Hours (Table) 10/21/20 10/21/20 10/22/20 Range/Units 22:13 22:13 04:08 WBC 11.1 H (3.8-10.6) k/uL BUN 25 H (9-20) mg/dL Creatinine 0.65 L (0.66-1.25) mg/dL Glucose 110 H (74-99) mg/dL POC Glucose (mg/dL) (75-99) mg/dL HDL Cholesterol 35.0 L (40.0-60.0) mg/dL 10/22/20 Range/Units 07:09 WBC (3.8-10.6) k/uL BUN (9-20) mg/dL Creatinine (0.66-1.25) mg/dL Glucose (74-99) mg/dL POC Glucose (mg/dL) 127 H (75-99) mg/dL HDL Cholesterol (40.0-60.0) mg/dL Thrombosis Risk Factor Assmnt - Choose All That Apply Any of the Below Risk Factors Present?: Yes Each Factor Represents 1 point: Age 41-60 years Other Risk Factors: No Thrombosis Risk Factor Assessment Total Risk Factor Score: 1 Thrombosis Risk Factor Assessment Level: Low Risk
[2020-10-22] MEDS: INSULIN ASPART (NovoLOG) 100 UNIT/ML VIAL SQ SCH (20:49)
[2020-10-22] MEDS ORDERED: ATORVASTATIN 20 MG TAB PO SCH (21:00)
[2020-10-22] MEDS: NAPROXEN 250 MG TAB PO ONE ×2 (21:32→21:53)
[2020-10-23] MEDS: SODIUM CHLORIDE 0.9% 1,000 ML IV SCH ×2 (00:39→02:03)
[2020-10-23] MEDS: MORPHINE SULFATE 4 MG/ML SYRINGE IVP PRN ×3 (01:59→09:42)
[2020-10-23] MEDS: METOPROLOL TARTRATE 12.5 MG TAB PO SCH (07:28)
[2020-10-23] MEDS: FAMOTIDINE 20 MG TAB PO SCH (07:28)
[2020-10-23] MEDS: ENOXAPARIN 40 MG/0.4 ML SYRINGE SQ SCH (07:32)
[2020-10-23] MEDS: metFORMIN 500 MG TAB PO SCH (07:32)
[2020-10-23] MEDS: GLIMEPIRIDE 2 MG TAB PO SCH (07:32)
[2020-10-23] MEDS: INSULIN ASPART (NovoLOG) 100 UNIT/ML VIAL SQ SCH ×2 (07:32→12:46)
[2020-10-23 07:35] VITALS: RESP 18; TEMP 97.6
[2020-10-23] MEDS ORDERED: REGADENOSON 0.4 MG/5 ML SYRINGE IV PRN (08:04)
[2020-10-23] MEDS ORDERED: NAPROXEN 250 MG TAB PO SCH (09:00)
[2020-10-23] MEDS ORDERED: ASPIRIN 81 MG PO SCH (09:00)
[2020-10-23] MEDS: ONDANSETRON 4 MG TAB PO PRN (09:53)
[2020-10-23 10:11] VITALS: BP 178/114; PULSE 75
--- NOTE | 2020-10-23 11:47 | P.PN ---
Subjective Progress Note Date: 10/23/20 HISTORY OF PRESENT ILLNESS: This is a 45-year-old male with a past medical history significant for hypertension, hyperlipidemia, coronary artery disease with previous stenting to the diagonal in 2016, and daily marijuana use. Patient used to see Dr. Swartz, however he states he has not followed up in the office in a few years. However, in looking at the office records, he followed with Dr. Galeano and was last seen in the office in 2016. We have been asked to see the patient in consultation for chest pain. Patient examined at the bedside. Patient states over the past week he has been having intermittent chest pain. He states the pain is in the middle of his chest. He states at times it feels like a burning sensation and other times it feels like a heavy pressure. He does report some radiation into the jaw. Denies radiation to the arms. He reports some lower back pain and discomfort into his legs. Patient reports a little bit of nausea when he has these episodes of chest pain. He states with exertion the pain goes away and the pain seems to be worse when he is at rest. He does report some chest discomfort with deep inspiration. He also reports the pain is worse with chest wall palpation. Patient states he is not taking any cardiac medications. He states he has been on a vitamin regimen for the past 6 months and is attempting a more holistic approach for his health. Patient states he has not had a stress test since his stenting in 2016. EKG reveals sinus mechanism with no signs of acute ischemia Chest xray normal chest. No change. Laboratory data: WBC 11.1. Hemoglobin 15.5. Platelet Count 294. D-dimer 0.17. Sodium 139. Potassium 4.4. BUN 25. Creatinine 0.65. Troponin negative 3. Current home cardiac medications include none 10/23/2020 Patient examined this morning at the bedside. Patient denies any shortness of breath. He denies chest pain or pressure. He reports significant heartburn that has been unrelieved with medications. He also reports pain going down into his legs that is not relieved with morphine. Patient's blood pressure is elevated this morning with a reading of 156/100. Patient appears somewhat agitated during examination. PHYSICAL EXAM: VITAL SIGNS: Reviewed. GENERAL: Well-developed in no acute distress. HEENT: Head is normocephalic. Pupils are equal, round. Sclerae anicteric. Mucous membranes of the mouth are moist. Neck supple. No JVD or thyromegaly LUNGS: Respirations even and unlabored. Lungs essentially clear to auscultation bilaterally. HEART: Regular rate and rhythm. S1 and S2 heard. ABDOMEN: Soft. Nondistended. Nontender. EXTREMITIES: Normal range of motion. No clubbing or cyanosis. Peripheral pulses intact. No lower extremity edema NEUROLOGIC: Awake and alert. Oriented x 3. ASSESSMENT: Chest pain, with typical and atypical features, troponin negative 3 Coronary artery disease with previous PCI to diagonal in 2016 History of hypertension History of hyperlipidemia Daily marijuana use PLAN: Continue current cardiac medications Pain management per internal medicine 2-D echo ordered. Await results Patient to undergo Lexiscan stress test tomorrow. If abnormal, he will require cardiac catheterization with Dr. Galeano Further recommendations pending patient's course Nurse practitioner note has been reviewed by physician. Signing provider agrees with the documented findings, assessment, and plan of care. Objective - Vital Signs Vital signs: Vital Signs Temp 97.6 F 10/23/20 07:00 Pulse 75 10/23/20 10:10 Resp 18 10/23/20 10:10 BP 178/114 10/23/20 10:10 Pulse Ox 97 10/23/20 11:04 Intake & Output 10/22/20 10/23/20 10/23/20 18:59 06:59 18:59 Other: Voiding Method Toilet Toilet # Voids 3 1 - Labs CBC & Chem 7: 10/21/20 22:13 10/21/20 22:13
--- NOTE | 2020-10-23 16:06 | P.DS ---
Providers Date of admission: 10/21/20 23:05 Expected date of discharge: 10/23/20 (AMA) Attending physician: Nam Templeton MD Consults: 10/21/20 23:03 Consult Physician Urgent Consulting Provider: Ajith Wall Consult Reason/Comments: cp Do you want consulting provider notified?: Yes 10/23/20 10:41 Consult Physician Routine Consulting Provider: Eleno Gottlieb Consult Reason/Comments: bilateral leg pain Do you want consulting provider notified?: Yes Primary care physician: Neymar Preet [facility] Course: Chief Complaint: Multiple complaints History of presenting complaint: This is a pleasant 45-year-old patient who follows with Dr. Oviedo. Patient's chronic stable medical conditions include diabetes, GERD, coronary artery disease with stent of the first diagonal in 2016,. Patient states he has not been diagnosed with sleep apnea. Patient presents with multiple symptoms. For 2 days he's been having infraclavicular left-sided constant pain. It is worse and body movement and on pressing. Does not radiate. Not related to exertion. No shortness of breath or dizziness. Also patient complaining of a tightness for 1 week. Decreased appetite. Slight nausea. No change in bowel pattern. Denies any fever and chills. Patient states he is sleeping a bit excessively. Also for last 3 days he's been having increasing low back pain just: Rather suddenly. The pain does radiate to the back of both eyes. No change in bowel or urinary pattern. Patient is able to get about. Patient's international [employer] is very reserved about taking any medications. He takes multiple supplements. X-ray of the lumbar spine and a computed tomography scan was done. Herniated disc was found at L3-L4/L4-L5. Naproxen was prescribed. Patient kept repeating he wanted to take natural methods of treatment and was ready skeptical about allopathic medications and treatments. I did inform them that is respectful of his viewpoint but reluctant to give her medications in the hospital and testing. Today: When I came to the floor nurse informed me that he would not take his medications. Did not want to take his naproxen. On the wanted IV morphine. She was also offered stress testing by cardiology. When I tried to explain to the patient that his pain in the thighs was coming from his lumbar spine from his herniated disc he did not like the explanation. He then told me I should not touch him to examination. Then excuse myself on the case. Dr. Templeton accepted the patient to her service with the meantime patient decided to leave AMA. I did speak to the nurse and the charge nurse Lex on the floor. I also spoke to Dr. MARY ANNE Swartz from cardiology. Total time spent today was more than 35 minutes Consultation: Dr. MARY ANNE Swartz from cardiology Past medical history to include: Diabetes, GERD, pancreatitis, coronary artery disease stent to the diagonal in 2016, highly functioning autistic, marijuana use Social history: Lives with his girlfriend. 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 Smokes 4-5 marijuana joints a day Family history: Osteoarthritis, von Willebrand-brother and sister Physical examination: VITAL SIGNS: 97.6, 62, 18, 1 5600, 97% room air GENERAL: Sitting on bed, anxious MUSCULAR skeletal: Reproducible tenderness in the left upper costochondral junction PSYCH: [Alert and oriented x3; mood and affect anxious, agitated. INVESTIGATIONS, reviewed in the clinical context: WBC 11.1 hemoglobin 15.5 platelets 294 potassium 4.4 BUN 25 creatinine 0.65 Troponin I 3 negative LDL 118 EKG tracing personally reviewed by me-normal sinus rhythm, LVH Chest x-ray film personally reviewed by me-clear X-ray lumbar spine: Negative Lumbar spine computed tomography scan: DJD and disc bulging at L3-L4/L4-L5 Assessment and plan: -Left-sided chest pain in a patient with known coronary artery disease. Patient pain is more localized and appears to be acute costochondritis. Given his history of coronary artery disease need to rule out same. Troponins are negative, EKG is unremarkable -Coronary artery disease with prior history of stent in 2016 Aspirin, Lipitor, Lopressor. 4 stress test -Diabetes mellitus type 2 on oral hypoglycemic Follow Accu-Cheks -GERD -Chronic marijuana use Patient advised against the same -Acute low back pain that came on 2 days ago in the lumbar area. With radiculopathy bilateral. Computed tomography scan shows disc bulging at L3-L4 and L4-L5. Patient refused to use naproxen. Dr. Santana from orthopedic consulted Disposition: Patient left AMA Plan - Discharge Summary Discharge Rx Participant: Yes New Discharge Prescriptions: No Action Glimepiride [Amaryl] 4 mg PO DAILY metFORMIN HCL [Glucophage] 500 mg PO BID Gabapentin [Neurontin] 400 mg PO TID PRN PRN Reason: Pain Discharge Medication List Glimepiride [Amaryl] 4 mg PO DAILY 05/24/20 [History] metFORMIN HCL [Glucophage] 500 mg PO BID 05/24/20 [History] Gabapentin [Neurontin] 400 mg PO TID PRN 10/21/20 [History] Follow up Appointment(s)/Referral(s): Neymar Oviedo MD [Primary Care Provider] - 1-2 days
[2020-10-24] MEDS ORDERED: AMINOPHYLLINE 500 MG/20 ML VIAL IV PRN (06:00)
[2020-10-24] MEDS ORDERED: CAFFEINE CITRATE 60 MG/3 ML VIAL IV PRN (06:00)
--- NOTE | 2020-10-25 11:32 | ECHOF ---
Referral Reason:cp MEASUREMENTS -------- HEIGHT: 180.3 cm WEIGHT: 90.7 kg BP: RVIDd: 2.7 cm (< 3.3) IVSd: 1.1 cm (0.6 - 1.1) LVIDd: 3.5 cm (3.9 - 5.3) LVPWd: 1.2 cm (0.6 - 1.1) IVSs: 1.4 cm LVIDs: 2.5 cm LVPWs: 1.9 cm Ao Diam: 3.5 cm (2.0 - 3.7) AV Cusp: 2.0 cm (1.5 - 2.6) LA Diam: 2.7 cm (2.7 - 3.8) MV EXCURSION: 11.800 mm (> 18.000) MV EF SLOPE: 79 mm/s (70 - 150) EPSS: 1.3 cm RAP: 5.00 mmHg RVSP: 16.42 mmHg FINDINGS -------- This was a technically difficult study with suboptimal views. The left ventricular size is normal. There is mild concentric left ventricular hypertrophy. Overa ll left ventricular systolic function is mildly impaired with, an EF between 45 - 50 %. Apical late ral LV wall motion is hypokinetic. The right ventricle is normal in size. The left atrial size is normal. The right atrial size is normal. xx ml of Lumason was utilized for enhancement of images. The aortic valve is trileaflet and appears structurally normal. The mitral valve is normal. The mitral valve leaflets are mildly thickened. There is trace mitral regurgitation. The tricuspid valve appears structurally normal. Mild tricuspid regurgitation present. Right vent ricular systolic pressure is normal at < 35 mmHg. There is no pulmonic regurgitation present. The aortic root size is normal. IVC Not well visulized. Echo free space may represent effusion or a pericardial fat pad. CONCLUSIONS -------- 1. The left ventricular size is normal. 2. There is mild concentric left ventricular hypertrophy. 3. Overall left ventricular systolic function is mildly impaired with, an EF between 45 - 50 %. 4. Apical lateral LV wall motion is hypokinetic. 5. The mitral valve leaflets are mildly thickened. 6. There is trace mitral regurgitation. 7. Mild tricuspid regurgitation present. 8. Echo free space may represent effusion or a pericardial fat pad. DUMP WORKER: Toma Toussaint RDCS
== END 2020-10-23 13:20 | disposition left against medical advice (07) ==
LOC: EC 21:43 → 6NMEDSUR 23:05
PROVIDERS: ADMIT Internal Medicine; ATTEND Internal Medicine
DX: R07.89 Other chest pain (principal); I25.10 Atherosclerotic heart disease of native coronary artery without angina pectoris; Z95.5 Presence of coronary angioplasty implant and graft; E11.9 Type 2 diabetes mellitus without complications; K21.9 Gastro-esophageal reflux disease without esophagitis; M51.16 Intervertebral disc disorders with radiculopathy, lumbar region; Z53.29 Procedure and treatment not carried out because of patient's decision for other reasons; R11.0 Nausea; R63.0 Anorexia; T39.316A Underdosing of propionic acid derivatives, initial encounter; F84.0 Autistic disorder; E78.5 Hyperlipidemia, unspecified; I10 Essential (primary) hypertension; I25.2 Old myocardial infarction; F12.90 Cannabis use, unspecified, uncomplicated; J45.909 Unspecified asthma, uncomplicated; Z87.891 Personal history of nicotine dependence; Z87.19 Personal history of other diseases of the digestive system; Z87.01 Personal history of pneumonia (recurrent); Z79.84 Long term (current) use of oral hypoglycemic drugs; Z79.899 Other long term (current) drug therapy; Z82.49 Family history of ischemic heart disease and other diseases of the circulatory system; Z83.3 Family history of diabetes mellitus; Z82.61 Family history of arthritis; Z83.2 Family history of diseases of the blood and blood-forming organs and certain disorders involving the immune mechanism; Z82.3 Family history of stroke; Z83.42 Family history of familial hypercholesterolemia
CPT/HCPCS: 96376 ×2; 96361 ×2; 93005 ×3; 96374; 99285; 36415; 94760 ×2; 93306; 85379; 83880; 80061; 80053; 83690; 83735; 84484 ×2; 85025; 85610; 85730; 72110; 71046; 72131; G0378 ×3; J2270 ×3; Q9950

== ENCOUNTER 2020-11-13 12:31 | Inpatient (IN) | payer BC ==
[2020-11-13] MEDS ORDERED: MORPHINE SULFATE 4 MG/ML SYRINGE IV PRN (12:34)
[2020-11-13] MEDS ORDERED: NALOXONE 0.4 MG/ML 1 ML VIAL IV PRN (12:34)
--- NOTE | 2020-11-13 12:36 | ED ---
General Adult HPI - General Stated complaint: chest pain Time Seen by Provider: 11/13/20 12:33 Source: patient, RN notes reviewed, old records reviewed Limitations: no limitations - History of Present Illness Initial comments: 45-year-old male history of hypertension, hyperlipidemia, CAD status post stenting in 2005 presenting for evaluation of chest pain. Chest pain is in the center of his chest, described as a burning most of the time with occasional pressure. Patient has had ongoing symptoms for the past one month. He was seen at this institution and was scheduled for stress test however he left AGAINST MEDICAL ADVICE prior to the completion of this test. He states his symptoms have been unchanged and persistent since the time he left. He denies vomiting. Denies diaphoresis. Does report some increased fatigue. Patient had been transferred from [facility] for cardiology evaluation and continued care. - Related Data Home Medications Medication Instructions Recorded Confirmed Glimepiride [Amaryl] 4 mg PO DAILY 05/24/20 10/21/20 metFORMIN HCL [Glucophage] 500 mg PO BID 05/24/20 10/21/20 Gabapentin [Neurontin] 400 mg PO TID PRN 10/21/20 10/21/20 Allergies Allergy/AdvReac Type Severity Reaction Status Date / Time No Known Allergies Allergy Verified 10/21/20 23:22 Review of Systems ROS Statement: Those systems with pertinent positive or pertinent negative responses have been documented in the HPI. ROS Other: All systems not noted in ROS Statement are negative. Past Medical History Past Medical History: Asthma, Diabetes Mellitus, GERD/Reflux, Hypertension, Myocardial Infarction ([place]), Pneumonia, Sleep Apnea/CPAP/BIPAP Additional Past Medical History / Comment(s): 03-08-16 no cpap machine used, pancreatitis Last Myocardial Infarction Date:: History of Any Multi-Drug Resistant Organisms: None Reported Past Surgical History: Tonsillectomy Additional Past Surgical History / Comment(s): 03/08/16 heart cath stent to 1st diag Past Anesthesia/Blood Transfusion Reactions: No Reported Reaction Past Psychological History: No Psychological Hx Reported Smoking Status: Never smoker Past Alcohol Use History: Occasional Past Drug Use History: Marijuana - Past Family History Mother Family Medical History: Fibromyalgia, Osteoarthritis (OA) Additional Family Medical History / Comment(s): djd/hip replacement, von willebrand's, brother and sister had von willebrand's to. Father Family Medical History: CVA/TIA, Hyperlipidemia, Hypertension, Myocardial Infarction ([place]) Additional Family Medical History / Comment(s): boarderline diabetic Brother(s) Family Medical History: Myocardial Infarction ([place]) General Exam General appearance: alert, in no apparent distress Head exam: Present: atraumatic, normocephalic EKG Findings - EKG Comments: EKG Findings:: EKG: Normal sinus rhythm, LVH rate of 71, VA interval 156, QRS duration 90, QTC 417, no ST segment elevation, similar appearance to EKG obtained within the last 1 month. Medical Decision Making - Medical Decision Making 45-year-old male with chest pain, workup at [facility] revealed a sinus rhythm EKG without ST segment elevation. Initial troponin was negative. He had a white blood cell count of 10, hemoglobin 14, normal platelets at 294. He had normal electrolytes and normal kidney function. He was transferred for cardiology evaluation. Repeat laboratory tests have been ordered including serial cardiac enzymes. Case discussed with Dr. Perez who will admit this patient. Cardiology has been placed on consult. Disposition Clinical Impression: Chest pain Disposition: ADMITTED IP TO THIS [facility] Condition: Stable Is patient prescribed a controlled substance at d/c from ED?: No Referrals: Neymar Oviedo MD [Primary Care Provider] - 1-2 days Decision to Admit Reason: Admit from EC Decision Date: 11/13/20 Decision Time: 12:36
[2020-11-13 13:02] LABS: Basophils # (A) 0.1 k/uL (0-0.2); Basophils % (A) 1 %; Eosinophils # (A) 0.2 k/uL (0-0.7); Eosinophils % (A) 2 %; HCT 41.4 % (39.0-53.0); HGB 14.3 gm/dL (13.0-17.5); Lymphocytes % (A) 29 %; MCH 30.3 pg (25.0-35.0); MCHC 34.5 g/dL (31.0-37.0); MCV 87.7 fL (80.0-100.0); Mean Platelet Volume 6.8; Monocytes # (A) 0.5 k/uL (0-1.0); Monocytes % (A) 5 %; Neutrophils # (A) 6.4 k/uL (1.3-7.7); Neutrophils % (A) 62 %; Platelet Count 290 k/uL (150-450); RBC 4.72 m/uL (4.30-5.90); RDW 13.2 % (11.5-15.5); WBC 10.4 k/uL (3.8-10.6)
[2020-11-13 13:13] LABS: ALT 18 U/L (4-49); AST 22 U/L (17-59); African American GFR (CKD) >90 (>60 ml/min/1.73 sqM); Albumin 4.1 g/dL (3.5-5.0); Alkaline Phosphatase 73 U/L (38-126); Anion Gap 5 mmol/L; Blood Urea Nitrogen 31 mg/dL (9-20); Calcium 9.4 mg/dL (8.4-10.2); Carbon Dioxide 28 mmol/L (22-30); Chloride 106 mmol/L (98-107); Glucose 121 mg/dL (74-99); Non-African American GFR(CKD) >90 (>60 ml/min/1.73 sqM); Potassium 4.5 mmol/L (3.5-5.1); Sodium 139 mmol/L (137-145); Total Bilirubin 0.3 mg/dL (0.2-1.3); Total Protein 6.3 g/dL (6.3-8.2)
[2020-11-13 13:15] LABS: INR 0.9 (<1.2); Partial Thromboplastin Time 23.8 sec (22.0-30.0); Prothrombin Time 9.7 sec (9.0-12.0)
[2020-11-13] MEDS ORDERED: HYDROmorphone 0.5 MG/0.5 ML SYRINGE IVP STA (14:29)
[2020-11-13] MEDS ORDERED: CALCIUM CARBONATE 500 MG CHEWABLE PO PRN (15:23)
[2020-11-13] MEDS ORDERED: MAG HYDROX/AL HYDROX/SIMETH 30 ML CUP PO PRN (15:23)
[2020-11-13] MEDS ORDERED: LORazepam 0.5 MG TAB PO PRN (15:23)
[2020-11-13] MEDS ORDERED: LACTULOSE 20 GM/30 ML CUP PO PRN (15:23)
[2020-11-13] MEDS ORDERED: MELATONIN 3 MG TABLET PO PRN (15:23)
[2020-11-13] MEDS ORDERED: MAGNESIUM HYDROXIDE 2,400 MG/10 ML CUP PO PRN (15:23)
--- NOTE | 2020-11-13 16:00 | P.HPIM ---
History of Present Illness H&P Date: 11/13/20 Chief Complaint: Chest pain History of presenting complaint: This is [id number] patient who follows with Dr. Oviedo. Patient's chronic stable medical conditions include diabetes, GERD, coronary artery disease with stent of the first diagonal in 2016,. Patient with you in the hospital from October 22 through October 23. He was then offered a nuclear stress test for chest pa in. Patient had left AMA. Was seen by cardiology. Patient presents with multiple symptoms. He now presents what he described as a same problems as before. He states his symptoms are not gone away. Since discharge she has not followed up with cardiology. Describes pain below the left clavicle. Constant. Also chest tightness. Very able to activity. No dizziness or lightheadedness. No ino rtness of breath. Patient does take multiple supplements. Patient not keen on taking allopathic medications. Patient initially presented to [facility]. Was transferred here for further cardiac workup. On last admission 2-D echocardiogram showed EF of 45-50%. Apical lateral LV wall motion was hypokinetic. 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 Smokes 4-5 marijuana joints a day Family history: Osteoarthritis, von Willebrand-brother and sister Physical examination: VITAL SIGNS: 98.3, 74, 20, 136/100, 98% room air GENERAL: BMI 26.4, reclining in bed, anxious EYES: Pupils equal. Conjunctiva normal. HEENT: External appearance of nose and ears normal, oral cavity grossly normal. NECK: JVD not raised; masses not palpable. HEART: First and second heart sounds are normal; no edema. LUNGS: Respiratory rate normal; clear to auscultation. ABDOMEN: Soft, nontender, liver spleen not palpable, no masses palpable. MUSCULAR skeletal: Some Reproducible tenderness in the left upper costochondral junction PSYCH: [Alert and oriented x3; mood and affect slightly anxious l. NEUROLOGICAL: Cranial nerves grossly intact; no facial asymmetry, power and sensation grossly intact. LYMPHATICS: No lymph nodes palpable in the axilla and neck INVESTIGATIONS, reviewed in the clinical context: WBC 10.4 hemoglobin 14.3 potassium 4.5 crit 0.66 EKG tracing personally reviewed by me-sinus rhythm, nonspecific T-wave changes Troponin I negative Previous labs: From September 2020 Lumbar spine computed tomography scan: DJD and disc bulging at L3-L4/L4-L5 2-D echocardiogram: EF 45-50%. Apical wall hypokinetic Assessment and plan: -Left-sided chest pain in a patient with known coronary artery disease. Symptoms have been present for over a month. Patient was here about a month ago and left AMA. 2-D echocardiogram is showing wall motion abnormality. On aspirin. Cardiology consulted. We'll keep nothing by mouth after midnight except for medications. Until seen by cardiology -Coronary artery disease with prior history of stent in 2015 Aspirin -Diabetes mellitus type 2 on oral hypoglycemic Follow Accu-Cheks -GERD Tums when necessary -Chronic marijuana use -Herniated disc disc bulging at L3-L4 and L4-L5. Follow-up with orthopedics if symptoms worsen Home medications resumed. Follow Accu-Cheks. Patient be made nothing by mouth after midnight for possible cardiac catheterization./Stress test Past Medical History Past Medical History: Asthma, Diabetes Mellitus, GERD/Reflux, Hypertension, Myocardial Infarction ([place]), Pneumonia, Sleep Apnea/CPAP/BIPAP Additional Past Medical History / Comment(s): 03-08-16 no cpap machine used, pancreatitis Last Myocardial Infarction Date:: History of Any Multi-Drug Resistant Organisms: None Reported Past Surgical History: Tonsillectomy Additional Past Surgical History / Comment(s): 03/08/16 heart cath stent to 1st diag Past Anesthesia/Blood Transfusion Reactions: No Reported Reaction Past Psychological History: No Psychological Hx Reported Smoking Status: Never smoker Past Alcohol Use History: Occasional Past Drug Use History: Marijuana - Past Family History Mother Family Medical History: Fibromyalgia, Osteoarthritis (OA) Additional Family Medical History / Comment(s): djd/hip replacement, von willebrand's, brother and sister had von willebrand's to. Father Family Medical History: CVA/TIA, Hyperlipidemia, Hypertension, Myocardial Infarction ([place]) Additional Family Medical History / Comment(s): boarderline diabetic Brother(s) Family Medical History: Myocardial Infarction (CT) Medications and Allergies Home Medications Medication Instructions Recorded Confirmed Type Glimepiride [Amaryl] 2 mg PO BID 05/24/20 11/13/20 History metFORMIN HCL [Glucophage] 500 mg PO BID 05/24/20 11/13/20 History Pala Yao 1 tab PO DAILY 11/13/20 11/13/20 History Ubidecarenone [Co Q-10] 100 mg PO DAILY 11/13/20 11/13/20 History Allergies Allergy/AdvReac Type Severity Reaction Status Date / Time metformin AdvReac Unknown Verified 11/13/20 12:56 Physical Exam Vitals: Vital Signs Temp Pulse Pulse Resp BP BP Pulse Ox 11/13/20 14:48 98.3 F 70 18 148/94 95 11/13/20 13:45 69 18 130/80 96 11/13/20 12:39 98.3 F 74 74 20 136/100 98 Intake and Output 11/13/20 11/13/20 11/13/20 06:59 14:59 22:59 Other: Weight 90.718 kg Results CBC & Chem 7: 11/13/20 12:52 11/13/20 12:52 Labs: Abnormal Lab Results - Last 24 Hours (Table) 11/13/20 Range/Units 12:52 BUN 31 H (9-20) mg/dL Glucose 121 H (74-99) mg/dL
[2020-11-13] MEDS: metFORMIN 500 MG TAB PO SCH (19:12)
[2020-11-13] MEDS: GLIMEPIRIDE 2 MG TAB PO SCH (19:13)
[2020-11-13] MEDS: HYDROmorphone 0.5 MG/0.5 ML SYRINGE IVP PRN ×2 (20:13→23:59)
[2020-11-14] MEDS: HYDROmorphone 0.5 MG/0.5 ML SYRINGE IVP PRN ×5 (04:05→20:07)
[2020-11-14] MEDS: metFORMIN 500 MG TAB PO SCH ×2 (07:06→14:35)
[2020-11-14] MEDS: GLIMEPIRIDE 2 MG TAB PO SCH ×2 (07:06→16:03)
[2020-11-14 07:23] LABS: Glucose,Whole Blood 141 mg/dL (75-99)
[2020-11-14] MEDS: ASPIRIN 325 MG TAB PO SCH (07:46)
[2020-11-14] MEDS ORDERED: ALPRAZolam 0.25 MG TAB PO PRN (08:57)
[2020-11-14] MEDS ORDERED: NITROGLYCERIN SL TABS 0.4 MG TAB SUBLINGUAL PRN (08:57)
[2020-11-14] MEDS ORDERED: PANTOPRAZOLE 40 MG/10 ML VIAL IV SCH (09:00)
--- NOTE | 2020-11-14 09:39 | P.CRDCN ---
History of Present Illness History of present illness: HISTORY OF PRESENTING ILLNESS This is a pleasant 45-year-old male past medical history significant for coronary artery disease status post PCI to the mid diagonal branch 2016 in the setting of an acute ST elevated myocardial infarction, diabetes mellitus, sleep apnea, hypertension, gastroesophageal reflux disease and daily marijuana use. He does not follow regularly in the office. We have been asked to see in consultation for chest pain. He presents to the hospital with symptoms of chest tightness in the midsternal region and a deep burning sensation that radiates to his jaw intermittently. He has also been experiencing exertional shortness of breath, increased fatigue and intermittent diaphoresis. This has been going on intermittently for the previous 6 weeks. He was evaluated in the hospital in September and recommended stress test however he left against medical advice. He is noncompliant with his recommended medication regimen and prefers to take the holistic approach. On previous admission he had an echocardiogram that revealed mildly impaired LV systolic function with ejection fraction 45-50% with apical lateral LV wall motion hypokinesia and mild tricuspid regurgitation. DIAGNOSTICS EKG reveals sinus mechanism heart rate of 71 with T-wave inversions noted in the inferior leads and flattened T waves anterior laterally. Telemetry tracings indicate tightness mechanism with no acute arrhythmia or significant pauses. Laboratory reviewed, the CBC unremarkable, sodium 139, potassium 4.5, creatinine 0.66, magnesium 2.0 cardiac enzymes negative 1. He takes no daily cardiac medications. REVIEW OF SYSTEMS At the time of my exam: CONSTITUTIONAL: Denies fever or chills. CARDIOVASCULAR: Denies chest pain, shortness of breath, orthopnea, PND or palpitations. RESPIRATORY: Denies cough. GASTROINTESTINAL: Denies abdominal pain, diarrhea, constipation, nausea or vomiting. MUSCULOSKELETAL: Denies myalgias. NEUROLOGIC: Denies numbness, tingling, headacbe or weakness. ENDOCRINE: Denies fatigue, weight change, polydipsia or polyurina. GENITOURINARY: Denies burning, hematuria or urgency with micturation. HEMATOLOGIC: Denies history of anemia or bleeding. PHYSICAL EXAMINATION Blood pressure 152/97 heart rate 70 afebrile and maintaining oxygen saturation on room air. CONSTITUTIONAL: No apparent distress. HEENT: Head is normocephalic. Pupils are equal, round. Sclerae anicteric. Mucous membranes of the mouth are moist. No JVD. No carotid bruit. CHEST EXAMINATION: Lungs are clear to auscultation. No chest wall tenderness is noted on palpation or with deep breathing. HEART EXAMINATION: Regular rate and rhythm. S1, S2 heard. No murmurs, gallops or rub. ABDOMEN: Soft, nontender. Positive bowel sounds. EXTREMITIES: 2+ peripheral pulses, no lower extremity edema and no calf tenderness. NEUROLOGIC EXAMINATION: Patient is awake, alert and oriented x3. ASSESSMENT Unstable angina History of [place] s/p PCI D1 2016 Ischemic cardiomyopathy, mild. Apical lateral wall motion hypokinesia Diabetes mellitus Hypertension Daily marijuana use Medical non-compliance PLAN The patient declines any further blood draws. Unable to further obtain troponin values. Given his symptoms of USA we recommend proceeding with cardiac catheterization. I have discussed the risks, benefits and alternative therapies for the above- mentioned procedure and for both sedation/analgesia as well as necessary blood product administration, if indicated, as they pertain to this patient. The patient has indicated understanding and acceptance of the risks and procedures discussed. Questions have been answered appropriately and he is agreeable to move forward with the above-stated procedure. Lengthy discussion had with the patient regarding the need for dual antiplatelet therapy should he require further PCI and he states he will take that medication however he will not take a cholesterol pill and will not allow us to draw any further labs. I will try to add on a lipid panel to yesterdays labs if possible. Marijuana cessation recommended. Thank you kindly for this consultation. Nurse Practitioner note has been reviewed, I agree with a documented findings and plan of care. Patient was seen and examined. Past Medical History Past Medical History: Asthma, Diabetes Mellitus, GERD/Reflux, Hypertension, Myocardial Infarction ([place]), Pneumonia, Sleep Apnea/CPAP/BIPAP Additional Past Medical History / Comment(s): 03-08-16 no cpap machine used, pancreatitis Last Myocardial Infarction Date:: History of Any Multi-Drug Resistant Organisms: None Reported Past Surgical History: Tonsillectomy Additional Past Surgical History / Comment(s): 03/08/16 heart cath stent to 1st diag Past Anesthesia/Blood Transfusion Reactions: No Reported Reaction Past Psychological History: No Psychological Hx Reported Smoking Status: Never smoker Past Alcohol Use History: Occasional Past Drug Use History: Marijuana - Past Family History Mother Family Medical History: Fibromyalgia, Osteoarthritis (OA) Additional Family Medical History / Comment(s): djd/hip replacement, von willebrand's, brother and sister had von willebrand's to. Father Family Medical History: CVA/TIA, Hyperlipidemia, Hypertension, Myocardial Infarction ([place]) Additional Family Medical History / Comment(s): boarderline diabetic Brother(s) Family Medical History: Myocardial Infarction ([place]) Medications and Allergies Home Medications Medication Instructions Recorded Confirmed Type Glimepiride [Amaryl] 2 mg PO BID 05/24/20 11/13/20 History metFORMIN HCL [Glucophage] 500 mg PO BID 05/24/20 11/13/20 History Ina Yao 1 tab PO DAILY 11/13/20 11/13/20 History Ubidecarenone [Co Q-10] 100 mg PO DAILY 11/13/20 11/13/20 History Allergies Allergy/AdvReac Type Severity Reaction Status Date / Time metformin AdvReac Unknown Verified 11/13/20 12:56 Physical Exam Vitals: Vital Signs Temp Pulse Pulse Pulse Resp BP BP 11/14/20 07:00 98.5 F 83 16 152/97 11/14/20 01:08 98.0 F 72 16 130/91 11/13/20 19:25 98.3 F 92 16 148/64 11/13/20 15:00 98.1 F 72 18 134/88 11/13/20 14:48 98.3 F 70 18 148/94 11/13/20 14:00 68 11/13/20 13:45 69 18 130/80 11/13/20 12:39 98.3 F 74 74 20 136/100 Pulse Ox 11/14/20 07:00 98 11/14/20 01:08 97 11/13/20 19:25 96 11/13/20 15:00 98 11/13/20 14:48 95 11/13/20 14:00 11/13/20 13:45 96 11/13/20 12:39 98 Intake and Output 11/13/20 11/14/20 11/14/20 22:59 06:59 14:59 Other: Voiding Method Toilet Toilet # Voids 1 2 Results 11/13/20 12:52 11/13/20 12:52 Cardiac Enzymes 11/13/20 11/13/20 Range/Units 12:52 12:52 AST 22 (17-59) U/L Troponin I <0.012 (0.000-0.034) ng/mL Coagulation 11/13/20 Range/Units 12:52 PT 9.7 (9.0-12.0) sec APTT 23.8 (22.0-30.0) sec CBC 11/13/20 Range/Units 12:52 WBC 10.4 (3.8-10.6) k/uL RBC 4.72 (4.30-5.90) m/uL Hgb 14.3 (13.0-17.5) gm/dL Hct 41.4 (39.0-53.0) % Plt Count 290 (150-450) k/uL Comprehensive Metabolic Panel 11/13/20 Range/Units 12:52 Sodium 139 (137-145) mmol/L Potassium 4.5 (3.5-5.1) mmol/L Chloride 106 (98-107) mmol/L Carbon Dioxide 28 (22-30) mmol/L BUN 31 H (9-20) mg/dL Creatinine 0.66 (0.66-1.25) mg/dL Glucose 121 H (74-99) mg/dL Calcium 9.4 (8.4-10.2) mg/dL AST 22 (17-59) U/L ALT 18 (4-49) U/L Alkaline Phosphatase 73 (38-126) U/L Total Protein 6.3 (6.3-8.2) g/dL Albumin 4.1 (3.5-5.0) g/dL Current Medications Generic Name Dose Route Start Last Admin Trade Name Freq PRN Reason Stop Dose Admin Acetaminophen 650 mg 11/13/20 12:34 Acetaminophen Tab 325 Mg Tab PO Q6HR PRN Mild Pain or Fever > 100.5 Al Hydroxide/Mg Hydroxide 15 ml 11/13/20 15:23 Mag Hydrox/Al Hydrox/Simeth 30 Ml Cup PO Q6HR PRN Indigestion Aspirin 325 mg 11/14/20 09:00 11/14/20 07:46 Aspirin 325 Mg Tab PO 325 mg DAILY JOSE Administration Calcium Carbonate/Glycine 1,000 mg 11/13/20 15:23 Calcium Carbonate 500 Mg Chewable PO Q4HR PRN Dyspepsia Glimepiride 2 mg 11/13/20 17:30 11/14/20 07:06 Glimepiride 2 Mg Tab PO Not Given AC-BID JOSE Hydromorphone HCl 0.5 mg 11/13/20 20:03 11/14/20 07:48 Hydromorphone 0.5 Mg/0.5 Ml Syringe IVP 0.5 mg Q4HR PRN Administration Pain Lactulose 20 gm 11/13/20 15:23 Lactulose 20 Gm/30 Ml Cup PO DAILY PRN Constipation Lorazepam 0.5 mg 11/13/20 15:23 Lorazepam 0.5 Mg Tab PO Q6HR PRN Anxiety Magnesium Hydroxide 2,400 mg 11/13/20 15:23 Magnesium Hydroxide 2,400 Mg/10 Ml Cup PO DAILY PRN Constipation Melatonin 3 mg 11/13/20 15:23 Melatonin 3 Mg Tablet PO HS PRN Insomnia Metformin HCl 500 mg 11/13/20 17:30 11/14/20 07:06 Metformin 500 Mg Tab PO Not Given AC-BID JOSE Morphine Sulfate 4 mg 11/13/20 12:34 Morphine Sulfate 4 Mg/Ml Syringe IV Q4HR PRN Severe Pain Naloxone HCl 0.2 mg 11/13/20 12:34 Naloxone 0.4 Mg/Ml 1 Ml Vial IV Q2M PRN Opioid Reversal Ondansetron HCl 4 mg 11/13/20 15:23 Ondansetron 4 Mg/2 Ml Vial IVP Q8HR PRN Nausea And Vomiting Pantoprazole Sodium 40 mg 11/14/20 09:00 11/14/20 07:46 Pantoprazole 40 Mg/10 Ml Vial IV 40 mg DAILY JOSE Administration Intake and Output 11/13/20 11/14/20 11/14/20 22:59 06:59 14:59 Other: Voiding Method Toilet Toilet # Voids 1 2 11/13/20 12:52 11/13/20 12:52
[2020-11-14] MEDS: ONDANSETRON 4 MG/2 ML VIAL IVP PRN (12:00)
[2020-11-14 15:51] LABS: Chol/HDL Ratio 4.97
--- NOTE | 2020-11-14 21:10 | PN ---
PROGRESS NOTE DATE OF SERVICE: 11/14/2020 This 45-year-old gentleman being followed Dr. Lore Oviedo in the outpatient setting was admitted with chest pain. Cardiology planning a cardiac catheterization tomorrow. Otherwise, the patient is also refusing any other medications investigations because the patient believes in medication and medication time. The patient complains of severe pain. PAST MEDICAL HISTORY: Reviewed. REVIEW OF SYSTEMS: CARDIOVASCULAR: As mentioned. RESPIRATORY: As mentioned. GI: No nausea or vomiting. NERVOUS SYSTEM: As mentioned earlier. CURRENT MEDICATIONS: Reviewed and include Tylenol, Maalox, Xanax, aspirin, Lipitor, Dilaudid, Ativan and melatonin. Other medication also reviewed. PHYSICAL EXAM: The patient is alert and oriented. Pulse 79, blood pressure 170/95, respiration 18, temperature 98.7, pulse ox 98% on room. HEENT: Conjunctivae normal. Neck: No JVD. Cardiovascular: S1, S2 muffled. Respirations: Breath sounds diminished in the bases. A few scattered rhonchi and crackles. Abdomen: Soft. Nontender. Legs: No edema. LABS: At this time shows CBC. Glucose 120. Other labs the patient refuses. ASSESSMENT: 1. Chest pain, possible unstable angina. 2. History of asthma. 3. Diabetes mellitus type 2. 4. Gastroesophageal reflux disease. 5. Hypertension. 6. History of myocardial infarction. 7. History of pneumonia. 8. Sleep apnea. 9. History of pancreatitis. 10.History of tonsillectomy. 11.History of THC. 12.FULL CODE. RECOMMENDATIONS AND DISCUSSION: This 45-year-old gentleman presented with multiple complex medical issues. We will monitor the patient closely. Continue the current management and symptomatic treatment. Continue to monitor the bp closely. The patient is on multiple medications. We will closely monitor pain medications. Pain management. Cardiac catheterization. Guarded prognosis because of multiple complex medical issues. Further recommendations to follow. MMODL / IJN: [id number] /
[2020-11-14] MEDS ORDERED: SODIUM CHLORIDE 0.9% 1,000 ML in EMPTY BAG 1 BAG IV ONE (23:59)
[2020-11-15] MEDS: HYDROmorphone 0.5 MG/0.5 ML SYRINGE IVP PRN ×6 (00:04→21:07)
[2020-11-15] MEDS: ASPIRIN 325 MG TAB PO SCH (05:55)
[2020-11-15] MEDS ORDERED: ATORVASTATIN 80 MG TAB PO ONE (06:00)
[2020-11-15] MEDS ORDERED: HEPARIN SODIUM,PORCINE 2,500 UNIT in SODIUM CHLORIDE 0.9% 250 ML IRRIGATION PRN (07:00)
[2020-11-15] MEDS ORDERED: HEPARIN SODIUM,PORCINE 10,000 UNIT in SODIUM CHLORIDE 0.9% 1,000 ML IRRIGATION PRN (07:00)
[2020-11-15] MEDS: GLIMEPIRIDE 2 MG TAB PO SCH ×2 (07:35→17:08)
[2020-11-15] MEDS: metFORMIN 500 MG TAB PO SCH ×2 (07:37→17:08)
[2020-11-15] MEDS ORDERED: IV FLUID CONTINUATION 1,000 ML IV ONE (07:45)
[2020-11-15] MEDS: PANTOPRAZOLE 40 MG TABLET PO SCH (08:25)
[2020-11-15] MEDS ORDERED: MIDAZOLAM 2 MG/2 ML VIAL IVP ONE (09:45)
[2020-11-15] MEDS ORDERED: fentaNYL (PF) 50 MCG/ML 2 ML AMP IVP ONE (09:45)
[2020-11-15] MEDS ORDERED: CAFFEINE CITRATE 60 MG/3 ML VIAL IV PRN (10:02)
[2020-11-15] MEDS ORDERED: REGADENOSON 0.4 MG/5 ML SYRINGE IV PRN (10:02)
[2020-11-15] MEDS ORDERED: AMINOPHYLLINE 500 MG/20 ML VIAL IV PRN (10:02)
--- NOTE | 2020-11-15 11:04 | CC ---
CARDIAC CATHETERIZATION REPORT PROCEDURE NOTE: The patient with known coronary artery disease, presented to hospital with symptoms of unstable angina and was advised to undergo cardiac catheterization and was told of risks, benefits and alternatives, including a stress test. 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 Hence we are going to cancel the procedure, schedule him for a stress test, and decide on further course of action based on his stress test findings. MMGUERREROL / IJN: [id number] /
--- NOTE | 2020-11-15 11:39 | P.PN ---
Subjective HISTORY OF PRESENTING ILLNESS This is a pleasant 45-year-old male past medical history significant for coronary artery disease status post PCI to the mid diagonal branch 2016 in the setting of an acute ST elevated myocardial infarction, diabetes mellitus, sleep apnea, hypertension, gastroesophageal reflux disease and daily marijuana use. He does not follow regularly in the office. We have been asked to see in consultation for chest pain. He presents to the hospital with symptoms of chest tightness in the midsternal region and a deep burning sensation that radiates to his jaw intermittently. He has also been experiencing exertional shortness of breath, increased fatigue and intermittent diaphoresis. This has been going on intermittently for the previous 6 weeks. He was evaluated in the hospital in September and recommended stress test however he left against medical advice. He is noncompliant with his recommended medication regimen and prefers to take the holistic approach. On previous admission he had an echocardiogram that revealed mildly impaired LV systolic function with ejection fraction 45-50% with apical lateral LV wall motion hypokinesia and mild tricuspid regurgitation. 11/15/2020 Patient was scheduled to undergo cardiac catheterization today however he was extremely agitated and unable to comply with instructions to lay flat for the procedure. It is not that he was short of breath or unable to lay flat due to those reasons he was just agitated and was requesting to be fully knocked out for his procedure. It was explained to the patient in detail that we do not do that for cardiac catheterization. The patient continued to be agitated and refused the procedure. We discussed with him in detail the recommendation for catheterization however he wishes to proceed now with a stress test. He is cur rently having no chest pain. Breathing is stable. Blood pressure 148/98 heart rate 72 afebrile maintaining oxygen saturation on room air. Lipid panel was added onto his blood work yesterday, LDL 126, HDL 37 and total cholesterol 194. PHYSICAL EXAMINATION CONSTITUTIONAL: No apparent distress. HEENT: Head is normocephalic. Pupils are equal, round. Sclerae anicteric. Mucous membranes of the mouth are moist. No JVD. No carotid bruit. CHEST EXAMINATION: Lungs are clear to auscultation. No chest wall tenderness is noted on palpation or with deep breathing. HEART EXAMINATION: Regular rate and rhythm. S1, S2 heard. No murmurs, gallops or rub. EXTREMITIES: 2+ peripheral pulses, no lower extremity edema and no calf tenderness. ASSESSMENT Unstable angina History of [place] s/p PCI D1 2016 Ischemic cardiomyopathy, mild. Apical lateral wall motion hypokinesia Diabetes mellitus Hypertension Daily marijuana use Medical non-compliance PLAN Perform Lexiscan stress test to assess for reversible cardiac ischemia. Initiate atorvastatin 80 mg daily and lisinopril 5 mg daily to his regimen. Further recommendations to follow based on clinical course. Nurse Practitioner note has been reviewed, I agree with a documented findings and plan of care. Patient was seen and examined. Objective - Vital Signs Vital signs: Vital Signs Temp 98.0 F 11/15/20 07:00 Pulse 72 11/15/20 07:00 Resp 16 11/15/20 07:00 BP 148/98 11/15/20 07:00 Pulse Ox 96 11/15/20 07:00 Intake & Output 11/14/20 11/15/20 11/15/20 18:59 06:59 18:59 Intake Total 10 Balance 10 Intake: IV 10 Other: Voiding Method Toilet # Voids 2 2 - Labs CBC & Chem 7: 11/13/20 12:52 11/13/20 12:52 Labs: Abnormal Lab Results - Last 24 Hours (Table) 11/13/20 Range/Units 12:52 HDL Cholesterol 37.0 L (40.0-60.0) mg/dL
[2020-11-15] MEDS: lisinopriL 5 MG TAB PO SCH (13:01)
--- NOTE | 2020-11-15 13:22 | NM ---
EXAMINATION TYPE: NM stress lexiscan cardiolite DATE OF EXAM: 11/15/2020 COMPARISON: NONE HISTORY: Chest pain TECHNIQUE: After the intravenous administration of 10.3 mCi Tc 99m Sestamibi - Cardiolite resting SP ECT images acquired 45 minutes post injection. At peak stress 25.8 mCi Tc 99m Sestamibi - Stress images obtained 30 minutes post injection The patient was stressed with 0.4mg Lexiscan. FINDINGS: No fixed defects are evident On stress images there is some diminished radiotracer within the septal wall greater towards the ante rior wall then on the resting images. The defect is evident on the polar maps although reversibility is not as clearly demonstrated. Wall motion is normal. No focal wall motion abnormality is identified rate Ejection fraction is calculated to be 48 %. This is low. Normal greater than 50% IMPRESSION: 1. Clinical consideration for some mid to distal septal wall stress-induced ischemic change is recomm ended. 2. Ejection fraction is low at 48%.
--- NOTE | 2020-11-15 14:18 | P.PN ---
Progress Note - Text Abnormal stress test results discussed with the patient, his mother and father. He is agreeable to move forward with cardiac catheterization. I have discussed the risks, benefits and alternative therapies for the above-mentioned procedure and for both sedation/analgesia as well as necessary blood product administration, if indicated, as they pertain to this patient. The patient has indicated understanding and acceptance of the risks and procedures discussed. Questions have been answered appropriately. NPO after midnight tonight.
--- NOTE | 2020-11-15 15:51 | P.PN ---
Subjective Progress Note Date: 11/15/20 This is a 45-year-old male who was recently admitted with chest pain and being closely monitored. Patient was scheduled to undergo cardiac catheterization and developed extreme anxiety and refused to proceed with the procedure without being sedated. Cardiology canceled the procedure and have proceeded with stress test which shows some mid to distal septal wall stress-induced ischemic change recommended with an ejection fraction low at 48%. Patient currently lying in bed extremely agitated and anxious status post attempt at cardiac catheterization but denies any chest pain or shortness of breath. Patient states he has been tolerating diet and was currently nothing by mouth for the procedure. Review of systems: Constitutional: No reports of fatigue, fever, or chills, reports some anxiety Cardiovascular: No reports of chest pain or palpitations Respiratory: No reports of shortness of breath or cough GI: No reports of nausea, vomiting, or diarrhea : No reports of dysuria or retention Neurovascular: No reports of weakness or numbness All medications have been reviewed Objective - Vital Signs Vital signs: Vital Signs Temp 98.0 F 11/15/20 07:00 Pulse 72 11/15/20 07:00 Resp 16 11/15/20 07:00 BP 148/98 11/15/20 07:00 Pulse Ox 96 11/15/20 07:00 Intake & Output 11/14/20 11/15/20 11/15/20 18:59 06:59 18:59 Other: Voiding Method Toilet # Voids 2 2 - Exam Gen: This is a 45-year-old male lying in bed awake, alert and oriented 3, well-developed, well-nourished. HEENT: Head is atraumatic, normocephalic. Pupils equal, round. Sclerae is ani cteric. NECK: Supple. No JVD. No lymphadenopathy. No thyromegaly. LUNGS: Clear to auscultation. No wheezes or rhonchi. No intercostal retractions. HEART: S1, S2 are muffled ABDOMEN: Soft. Bowel sounds are present. No masses. No tenderness. EXTREMITIES: No pedal edema. No calf tenderness. NEUROLOGICAL: Patient is awake, alert and oriented x3. Cranial nerves 2 through 12 are grossly intact. - Labs CBC & Chem 7: 11/13/20 12:52 11/13/20 12:52 Labs: Abnormal Lab Results - Last 24 Hours (Table) 11/13/20 Range/Units 12:52 HDL Cholesterol 37.0 L (40.0-60.0) mg/dL Assessment and Plan Assessment: Chest pain, possible unstable angina Abnormal stress test History of asthma Diabetes mellitus type 2 Gastroesophageal reflux disease Hypertension history of myocardial infarction History of pneumonia Sleep apnea THC use Full code Plan: Continue with current medications and will monitor closely. Patient will be nothing by mouth at midnight and patient is now agreeable to undergo cardiac catheterization in the morning. Will await cardiology report. Patient contin ues to refuse certain medications stating he is holistic and again the importance was stressed medication compliance by cardiology as well. Family at the bedside and patient more calm and cooperative and is now agreeable with cardiac catheterization. Possible discharge in 24-48 hours.
[2020-11-15] MEDS: ONDANSETRON 4 MG/2 ML VIAL IVP PRN (18:55)
[2020-11-15] MEDS: ATORVASTATIN 80 MG TAB PO SCH (21:04)
[2020-11-15] MEDS ORDERED: SODIUM CHLORIDE 0.9% 1,000 ML in EMPTY BAG 1 BAG IV ONE (23:59)
[2020-11-16] MEDS: HYDROmorphone 0.5 MG/0.5 ML SYRINGE IVP PRN ×4 (01:13→20:23)
[2020-11-16] MEDS ORDERED: ASPIRIN 325 MG TAB PO ONE (06:00)
[2020-11-16] MEDS ORDERED: HEPARIN SODIUM,PORCINE 10,000 UNIT in SODIUM CHLORIDE 0.9% 1,000 ML IRRIGATION PRN (07:00)
[2020-11-16] MEDS ORDERED: HEPARIN SODIUM,PORCINE 2,500 UNIT in SODIUM CHLORIDE 0.9% 250 ML IRRIGATION PRN (07:00)
[2020-11-16] MEDS: GLIMEPIRIDE 2 MG TAB PO SCH ×2 (07:03→17:59)
[2020-11-16] MEDS: metFORMIN 500 MG TAB PO SCH (07:04)
[2020-11-16] MEDS: ONDANSETRON 4 MG/2 ML VIAL IVP PRN (07:58)
[2020-11-16] MEDS: lisinopriL 5 MG TAB PO SCH (07:59)
[2020-11-16] MEDS: PANTOPRAZOLE 40 MG TABLET PO SCH (07:59)
--- NOTE | 2020-11-16 08:16 | ECHOS ---
STRESS ECHOCARDIOGRAM LUMASON: Vial INDICATIONS: Chest pain. MEDICATIONS: BASELINE HEART RATE: 6'1" BASELINE BLOOD PRESSURE: 146/101 MAXIMUM HEART RATE: 77 MAXIMUM BLOOD PRESSURE: 162/100 85% MPHR: na 100% MPHR: na METS: na MAXIMUM STAGE REACHED: na TOTAL EXERCISE TIME: na CLINICAL INFORMATION: Baseline EKG shows sinus rhythm, normal axis, normal intervals. Patient was given intravenous Lexiscan as per protocol. Did not have chest pain or diagnostic ST-segment depression. CONCLUSION: 1. Negative stress test by EKG criteria. 2. Cardiolite portion of the stress test will be reported separately. MMODL / IJN: [id number] /
[2020-11-16] MEDS ORDERED: LORazepam 2 MG/ML INJ IV STA (11:21)
[2020-11-16] MEDS ORDERED: DIAZEPAM 5 MG/ML 2 ML INJ IVP STA (11:21)
[2020-11-16] MEDS: ALPRAZolam 0.5 MG TAB PO PRN ×2 (12:23→20:22)
[2020-11-16] MEDS ORDERED: LIDOCAINE 1% INJ 10MG/ML (20 ML MDV) ONE (12:34)
[2020-11-16] MEDS ORDERED: IV FLUID CONTINUATION 1,000 ML IV ONE (13:00)
[2020-11-16] MEDS ORDERED: fentaNYL (PF) 50 MCG/ML 2 ML AMP ONE (13:08)
[2020-11-16] MEDS ORDERED: VERAPAMIL 2.5 MG/ML 2 ML AMP ONE (13:15)
[2020-11-16] MEDS ORDERED: LIDOCAINE 1% INJ 10MG/ML (20 ML MDV) SQ ONE (13:18)
[2020-11-16] MEDS: fentaNYL (PF) 50 MCG/ML 2 ML AMP IV ONE ×2 (13:18→13:37)
[2020-11-16] MEDS ORDERED: MIDAZOLAM 2 MG/2 ML VIAL IV ONE ×3 (13:18→13:24)
[2020-11-16] MEDS: NITROGLYCERIN 1000MCG/10ML SYRINGE INTRACORON ONE ×3 (13:26→14:01)
[2020-11-16] MEDS ORDERED: HEPARIN SODIUM 1,000 UN/ML (10ML VL) IV ONE (13:30)
[2020-11-16] MEDS ORDERED: IOPAMIDOL-370 125ML BTL INJ ONE (13:50)
[2020-11-16] MEDS ORDERED: CLOPIDOGREL 75 MG TAB ONE (14:04)
[2020-11-16] MEDS ORDERED: CLOPIDOGREL 75 MG TAB PO ONE (14:08)
[2020-11-16] MEDS ORDERED: IOPAMIDOL-370 100ML BTL INJ ONE (14:12)
[2020-11-16] MEDS ORDERED: ONDANSETRON 4 MG/2 ML VIAL ONE (14:14)
--- NOTE | 2020-11-16 14:15 | P.PN ---
Subjective Progress Note Date: 11/16/20 This is a 45-year-old male who was recently admitted with chest pain and being closely monitored. Patient was scheduled to undergo cardiac catheterization and developed extreme anxiety and refused to proceed with the procedure without being sedated. Cardiology canceled the procedure and have proceeded with stress test which shows some mid to distal septal wall stress-induced ischemic change recommended with an ejection fraction low at 48%. Patient currently lying in bed extremely agitated and anxious status post attempt at cardiac catheterization but denies any chest pain or shortness of breath. Patient states he has been tolerating diet and was currently nothing by mouth for the procedure. 11/16/2020 Patient is seen in follow up this morning and is scheduled for cardiac cath today and continues to be extremely anxious about the procedure. Anxiolytics as needed. Family at the bedside. Patient continues to have chest discomfort and periods of shortness of breath. Patient is nothing by mouth for the procedure today. Review of systems: Constitutional: No reports of fatigue, fever, or chills, reports some anxiety Cardiovascular: No reports of chest pain or palpitations Respiratory: No reports of shortness of breath or cough GI: No reports of nausea, vomiting, or diarrhea : No reports of dysuria or retention Neurovascular: No reports of weakness or numbness All medications have been reviewed Physical exam: Gen: This is a 45-year-old male lying in bed awake, alert and oriented 3, well- developed, well-nourished. HEENT: Head is atraumatic, normocephalic. Pupils equal, round. Sclerae is anicteric. NECK: Supple. No JVD. No lymphadenopathy. No thyromegaly. LUNGS: Clear to auscultation. No wheezes or rhonchi. No intercostal retractions. HEART: S1, S2 are muffled ABDOMEN: Soft. Bowel sounds are present. No masses. No tenderness. EXTREMITIES: No pedal edema. No calf tenderness. NEUROLOGICAL: Patient is awake, alert and oriented x3. Cranial nerves 2 through 12 are grossly intact. Assessment and plan: Chest pain, possible unstable angina Abnormal stress test History of asthma Diabetes mellitus type 2 Gastroesophageal reflux disease Hypertension history of myocardial infarction History of pneumonia Sleep apnea THC use Full code Plan: Continue with current medications and will monitor closely. Patient is nothing by mouth to undergo cardiac catheterization today. Patient is extremely anxious and having more frequent episodes of chest pain with some intermittent periods of shortness of breath. Anxiolytics ordered as needed. Will await cardiology report. Patient continues to refuse certain medications stating he is holistic and again the importance was stressed medication compliance by cardiology as well. Given patient's symptoms that persist, need to proceed with cardiac catheterization and the importance was again stressed with patient and family at the bedside. Family persistent about having catheterization done. Possible discharge in 24-48 hours. Objective - Vital Signs Vital signs: Vital Signs Temp 98.3 F 11/16/20 07:00 Pulse 69 11/16/20 07:00 Resp 18 11/16/20 07:00 BP 126/82 11/16/20 07:00 Pulse Ox 97 11/16/20 07:00 Intake & Output 11/15/20 11/16/20 11/16/20 18:59 06:59 18:59 Intake Total 10 300 Balance 10 300 Weight 90.72 kg Intake: IV 10 Oral 300 Other: # Voids 2 2 - Labs CBC & Chem 7: 11/13/20 12:52 11/13/20 12:52
[2020-11-16] MEDS ORDERED: ATROPINE SULFATE 0.1 MG/ML 10ML SYRINGE IV PRN (14:16)
[2020-11-16] MEDS ORDERED: ZOLPIDEM 5 MG TAB PO PRN (14:16)
[2020-11-16] MEDS ORDERED: MAG HYDROX/AL HYDROX/SIMETH 30 ML CUP PO PRN (14:16)
[2020-11-16] MEDS ORDERED: ONDANSETRON 4 MG/2 ML VIAL IVP ONE (14:16)
[2020-11-16] MEDS ORDERED: RX INFO: IV CONTRAST WAS GIVEN 1 EACH MISC MISCELLANE PRN (14:16)
[2020-11-16] MEDS ORDERED: NITROGLYCERIN SL TABS 0.4 MG TAB SUBLINGUAL PRN (14:16)
[2020-11-16] MEDS ORDERED: SODIUM CHLORIDE 0.9% 1,000 ML IV SCH (14:30)
--- NOTE | 2020-11-16 19:49 | CC ---
CARDIAC CATHETERIZATION REPORT DATE OF SERVICE: 11/16/2020 PERFORMING PHYSICIAN: Mitesh Galeano MD. PROCEDURE PERFORMED: 1. Selective right and left coronary angiogram. 2. Successful stenting of the mid to distal left anterior descending artery using 2.0 x 15 mm Vishnu drug-eluting stent with an excellent angiographic result and reduction of stenosis from 70% to 0%. 3. Successful stenting of the PDA branch of the right coronary artery using 2.0 x 30 mm Vishnu drug-eluting stent with an excellent angiographic result and reduction of stenosis from 80% to 0%. INDICATION: This is a 45-year-old gentleman with hypertension and dyslipidemia, coronary artery disease, who underwent prior stenting of the diagonal in the past, presented to the hospital with chest discomfort and underwent myocardial perfusion imaging stress test and that revealed apical reversibility. Because of that, a heart catheterization was advised. APPROACH: Right common femoral artery. COMPLICATION: None. LEVEL OF SEDATION: Moderate with sedation length of 55 minutes. PROCEDURE DESCRIPTION: After obtaining an informed consent, the patient was brought to the cardiac laborer pipeline. The right common femoral artery was cannulated using micropuncture technique, the micropuncture wire passed easily, then I placed a 6-Bolivian sheath at the right common femoral artery. At that point, I did selective right and left coronary angiogram with JR4 and JL4 catheters. Left heart catheterization was performed using the JR4 catheter, which crossed the aortic valve, then I did pullback across the valve. After that I did intervene on the LAD and RCA. Please see separate paragraph for that. . SELECTIVE CORONARY ANGIOGRAM: 1. The right coronary artery is a large caliber vessel. It is a dominant vessel. The RCA in the proximal and mid and distal portion appeared to be angiographically normal. After that, bifurcates into PDA and PLV branches. The PDA branch has a long tubular lesion, appeared to be in the range of 80% to 90%. The PLV branch has another lesion, appeared to be in the range of 70% but becomes small caliber vessel. 2. The left main is angiographically normal. It bifurcates into LCX and LAD. 3. The LCX is a large caliber vessel, it is a nondominant vessel. The LCX is angiographically normal. It bifurcates into the first and 2nd and 3rd obtuse marginal branches. The first obtuse marginal branch appeared to be angiographically normal. The 2nd obtuse marginal branch is a moderate caliber vessel with lesion appeared to be in the range of 50% and the 3rd obtuse marginal branch appeared to have mild disease only. 4. The LAD, the proximal LAD appeared to be angiographically normal. It gives rise into the first diagonal branch, which is stented and the stent is patent. The mid LAD is appeared to have mild disease only. The LAD distally, by the bifurcation of the second diagonal branch, has a lesion that appeared to be in the range of 70%. HEMODYNAMICS: The LVEDP was about 2 mmHg. PCI OF THE LAD AND RCA: Anticoagulation was initiated using heparin with continuous ACT monitoring throughout the procedure. Subsequently, I did engage the RCA using JR4 guiding catheter. I did engage the left main using JL4 guiding catheter. I did wire the LAD using a Whisper wire. Balloon angioplasty was performed using 2.0 x 12 mm balloon before I deployed 2.0 x 15 mm Mulberry drug-eluting stent, where the stent was positioned under fluoroscopic guidance, and deployed under fluoroscopic guidance. The following angiogram showed excellent angiographic results. For the lesion in the right coronary artery, I did engage the right coronary artery using JR4 guide. We did wire the PDA branch of the RCA using the using a Whisper wire. Balloon angioplasty was performed using 2.0 x 15 mm balloon before I deployed in the PDA branch of the RCA 2 0 x 30 mm Mulberry drug-eluting stent, where the stent was positioned under fluoroscopic guidance and deployed under its nominal pressure. After that, I post dilated the stent using 2.5 mm balloon. Final angiogram showed excellent angiographic results and the procedure was completed without any complication. CONCLUSION: 1. Chest discomfort with an abnormal myocardial perfusion imaging stress test in this gentleman. 2. Severe 2-vessel coronary artery disease involving the mid to distal LAD, as well as PDA branch of the RCA. 3. Successful stenting of the LAD using 2.0 x 15 mm Mulberry with an excellent angiographic result. 4. Successful stenting of the PDA branch of the RCA using 2.0 x 30 mm Vishnu drug- eluting stent with an excellent angiographic result. 5. Normal LVEDP. POSTPROCEDURE MANAGEMENT: 1. Medical treatment. 2. Aggressive cholesterol control. 3. Risk factor modifications. 4. Follow up with the patient. MMODL / IJN: [id number] /
[2020-11-16] MEDS: METOPROLOL TARTRATE 25 MG TAB PO SCH (20:22)
[2020-11-16] MEDS: ATORVASTATIN 80 MG TAB PO SCH (20:22)
[2020-11-16 20:28] LABS: Glucose,Whole Blood 96 mg/dL (75-99)
[2020-11-17] MEDS: ACETAMINOPHEN TAB 325 MG TAB PO PRN ×2 (00:27→08:43)
[2020-11-17] MEDS: HYDROmorphone 0.5 MG/0.5 ML SYRINGE IVP PRN ×3 (00:29→08:49)
[2020-11-17] MEDS: GLIMEPIRIDE 2 MG TAB PO SCH (07:26)
[2020-11-17] MEDS: PANTOPRAZOLE 40 MG TABLET PO SCH (08:42)
[2020-11-17] MEDS: lisinopriL 5 MG TAB PO SCH (08:42)
[2020-11-17] MEDS: ALPRAZolam 0.5 MG TAB PO PRN (08:42)
[2020-11-17] MEDS: METOPROLOL TARTRATE 25 MG TAB PO SCH (08:43)
[2020-11-17] MEDS ORDERED: ASPIRIN 81 MG PO SCH (09:00)
[2020-11-17] MEDS ORDERED: CLOPIDOGREL 75 MG TAB PO SCH (09:00)
[2020-11-17 09:40] VITALS: BP 142/89; PULSE 80; RESP 20; TEMP 98.1
--- NOTE | 2020-11-17 14:00 | P.PN ---
Subjective This is a pleasant 45-year-old male past medical history significant for coronary artery disease status post PCI to the mid diagonal branch 2016 in the setting of an acute ST elevated myocardial infarction, diabetes mellitus, sleep apnea, hypertension, gastroesophageal reflux disease and daily marijuana use. He does not follow regularly in the office. We have been asked to see in consultation for chest pain. Patient underwent cardiac catheterization with Dr. Galeano in 11/15 2020 with PCI to mid to distal LAD and stent to the RCA. Patient seen and examined at bedside, no acute distress. She does have some mild chest pain that is worsening with a deep breath that has improved from when he was admitted. Blood pressure 142/89, heart rate 80, afebrile, maintaining oxygen saturations on room air. 09/2020 Echocardiogram revealed mildly impaired LV systolic function with ejection fraction 45-50% with apical lateral LV wall motion hypokinesia and mild tricuspid regurgitation. PHYSICAL EXAMINATION CONSTITUTIONAL: No apparent distress. HEENT: Head is normocephalic. No JVD. No carotid bruit. CHEST EXAMINATION: Lungs are clear to auscultation. No chest wall tenderness is noted on palpation or with deep breathing. HEART EXAMINATION: Regular rate and rhythm. S1, S2 heard. No murmurs, gallops or rub. SKIN: Right femoral cath site clean dry, no hematoma 2+ pulses EXTREMITIES: 2+ peripheral pulses, no lower extremity edema and no calf tenderness. ASSESSMENT Unstable angina s/p PCI to LAD and RCA History of IN s/p PCI D1 2016 Ischemic cardiomyopathy, mild. Apical lateral wall motion hypokinesia Diabetes mellitus Hypertension Daily marijuana use Medical non-compliance PLAN From a cardiology perspective, patient is stable to be discharged home. Recommend close follow up with Dr. Galeano in the office Continue current cardiac medications. Nurse Practitioner note has been reviewed, I agree with a documented findings and plan of care. Patient was seen and examined. Objective - Vital Signs Vital signs: Vital Signs Temp 98.1 F 11/17/20 08:00 Pulse 80 11/17/20 08:00 Resp 20 11/17/20 08:00 BP 142/89 11/17/20 08:00 Pulse Ox 96 11/17/20 08:00 Intake & Output 11/16/20 11/17/20 11/17/20 18:59 06:59 18:59 Intake Total 100 240 Output Total 350 600 Balance -250 -600 240 Intake: IV 100 Oral 240 Output: Urine 350 600 Other: Voiding Method Urinal Toilet # Voids 1 3 - Labs CBC & Chem 7: 11/13/20 12:52 11/13/20 12:52
--- NOTE | 2020-11-17 17:14 | P.DS ---
Providers Date of admission: 11/15/20 16:28 Attending physician: Brielle Damon Consults: 11/13/20 12:34 Consult Physician Routine Consulting Provider: Mitesh Galeano Consult Reason/Comments: CP Do you want consulting provider notified?: Yes 11/16/20 14:17 Consult Physician Routine Consulting Provider: Cardiology [place]ante Consult Reason/Comments: Post Interventional patient Do you want consulting provider notified?: Already Contacted Primary care physician: [facility] Course: 45-year-old male who was recently admitted with chest pain and being closely monitored. Patient was scheduled to undergo cardiac catheterization and developed extreme anxiety and refused to proceed with the procedure without being sedated. Cardiology canceled the procedure and have proceeded with stress test which shows some mid to distal septal wall stress-induced ischemic change recommended with an ejection fraction low at 48%. Patient currently lying in bed extremely agitated and anxious status post attempt at cardiac catheterization but denies any chest pain or shortness of breath. Patient states he has been tolerating diet and was currently nothing by mouth for the procedure. 11/16/2020 Patient is seen in follow up this morning and is scheduled for cardiac cath today and continues to be extremely anxious about the procedure. Anxiolytics as needed. Family at the bedside. Patient continues to have chest discomfort and periods of shortness of breath. Patient is nothing by mouth for the procedure today. 11/17/2020 Patient had a stent to RCA and LAD. She is clinically doing well will be discharged today patient appears to be noncompliant with his medications constant was provided regarding this Physical exam: Gen: This is a 45-year-old male lying in bed awake, alert and oriented 3, well- developed, well-nourished. HEENT: Head is atraumatic, normocephalic. Pupils equal, round. Sclerae is anicteric. NECK: Supple. No JVD. No lymphadenopathy. No thyromegaly. LUNGS: Clear to auscultation. No wheezes or rhonchi. No intercostal retractions. HEART: S1, S2 are muffled ABDOMEN: Soft. Bowel sounds are present. No masses. No tenderness. EXTREMITIES: No pedal edema. No calf tenderness. NEUROLOGICAL: Patient is awake, alert and oriented x3. Cranial nerves 2 through 12 are grossly intact. Assessment and plan: Chest pain, possible unstable angina, patient is status post cardiac catheterization and stenting to the LAD and RCA History of asthma Diabetes mellitus type 2 Gastroesophageal reflux disease Hypertension history of myocardial infarction History of pneumonia Sleep apnea THC use Patient Condition at Discharge: Stable Plan - Discharge Summary New Discharge Prescriptions: New Atorvastatin [Lipitor] 80 mg PO HS #30 tab Aspirin 81 mg PO DAILY #30 chew Metoprolol Tartrate [Lopressor] 25 mg PO BID #60 tab Nitroglycerin Sl Tabs [Nitrostat] 0.4 mg SUBLINGUAL Q5M PRN #30 tab PRN Reason: Chest Pain Clopidogrel [Plavix] 75 mg PO DAILY #30 tab lisinopriL [Zestril] 5 mg PO DAILY #30 tab Continue Glimepiride [Amaryl] 2 mg PO BID Ubidecarenone [Co Q-10] 100 mg PO DAILY [place] Yao 1 tab PO DAILY metFORMIN HCL [Glucophage] 500 mg PO BID #0 Discharge Medication List Glimepiride [Amaryl] 2 mg PO BID 05/24/20 [History] [place] Yao 1 tab PO DAILY 11/13/20 [History] Ubidecarenone [Co Q-10] 100 mg PO DAILY 11/13/20 [History] Aspirin 81 mg PO DAILY #30 chew 11/17/20 [Rx] Atorvastatin [Lipitor] 80 mg PO HS #30 tab 11/17/20 [Rx] Clopidogrel [Plavix] 75 mg PO DAILY #30 tab 11/17/20 [Rx] Metoprolol Tartrate [Lopressor] 25 mg PO BID #60 tab 11/17/20 [Rx] Nitroglycerin Sl Tabs [Nitrostat] 0.4 mg SUBLINGUAL Q5M PRN #30 tab 11/17/20 [Rx] lisinopriL [Zestril] 5 mg PO DAILY #30 tab 11/17/20 [Rx] metFORMIN HCL [Glucophage] 500 mg PO BID #0 11/17/20 [Rx] Follow up Appointment(s)/Referral(s): Mitesh Galeano MD [STAFF PHYSICIAN] - 1 Week Neymar Oviedo MD [Primary Care Provider] - 11/23/20 10:30 am (with MIKE) Dru Lawrence MD [STAFF PHYSICIAN] - 11/24/20 2:30 pm Patient Instructions/Handouts: *Surgery [facility] - After Heart Catheterization - Electric Range Assembler Instructions Discharge Disposition: HOME SELF-CARE
[2020-11-18] MEDS ORDERED: metFORMIN 500 MG TAB PO SCH (17:30)
== END 2020-11-17 12:00 | disposition home or self-care (01) | DRG 247 ==
LOC: EC 12:31 → 6NMEDSUR 12:34 → OBSVTOIN 11-15 16:28 → 3SCARD 11-16 15:05
PROVIDERS: ADMIT Hospitalist; ATTEND Hospitalist
PROC: 4A023N7 Measurement of Cardiac Sampling and Pressure, Left Heart, Percutaneous Approach (ICD-10-PCS; principal; 2020-11-16 08:30)
PROC: 027135Z Dilation of Coronary Artery, Two Arteries with Two Drug-eluting Intraluminal Devices, Percutaneous Approach (ICD-10-PCS; principal; 2020-11-16 08:30)
PROC: B2111ZZ Fluoroscopy of Multiple Coronary Arteries using Low Osmolar Contrast (ICD-10-PCS; principal; 2020-11-16 08:30)
DX: I25.110 Atherosclerotic heart disease of native coronary artery with unstable angina pectoris (principal); I25.2 Old myocardial infarction; I25.5 Ischemic cardiomyopathy; E11.9 Type 2 diabetes mellitus without complications; E78.5 Hyperlipidemia, unspecified; Z71.51 Drug abuse counseling and surveillance of drug abuser; F12.90 Cannabis use, unspecified, uncomplicated; G47.30 Sleep apnea, unspecified; I10 Essential (primary) hypertension; J45.909 Unspecified asthma, uncomplicated; I07.1 Rheumatic tricuspid insufficiency; M79.7 Fibromyalgia; K21.9 Gastro-esophageal reflux disease without esophagitis; M51.26 Other intervertebral disc displacement, lumbar region; Z53.29 Procedure and treatment not carried out because of patient's decision for other reasons; Z90.89 Acquired absence of other organs; Z79.84 Long term (current) use of oral hypoglycemic drugs; Z82.49 Family history of ischemic heart disease and other diseases of the circulatory system; Z83.3 Family history of diabetes mellitus; Z83.2 Family history of diseases of the blood and blood-forming organs and certain disorders involving the immune mechanism; Z82.61 Family history of arthritis; Z82.3 Family history of stroke; Z87.01 Personal history of pneumonia (recurrent); Z87.891 Personal history of nicotine dependence; Z91.19 Patient's noncompliance with other medical treatment and regimen; Z95.5 Presence of coronary angioplasty implant and graft
CPT/HCPCS: 78452; 80053; 80061; 83735; 84484; 85025; 85610; 85730; 93005; 93017; 93458; 99285

== ENCOUNTER 2020-11-18 11:05 | Observation (INO) | payer BC ==
[2020-11-18] MEDS ORDERED: MORPHINE SULFATE 4 MG/ML SYRINGE IVP STA (11:24)
[2020-11-18] MEDS ORDERED: ASPIRIN 325 MG TAB PO STA ×2 (11:25→15:26)
[2020-11-18] MEDS ORDERED: HYDROmorphone 0.5 MG/0.5 ML SYRINGE IVP STA (11:35)
[2020-11-18] MEDS ORDERED: LORazepam 2 MG/ML INJ IV STA (11:43)
[2020-11-18] MEDS ORDERED: ONDANSETRON 4 MG/2 ML VIAL IVP STA (11:43)
[2020-11-18 11:46] LABS: Basophils # (A) 0.1 k/uL (0-0.2); Basophils % (A) 1 %; Eosinophils # (A) 0.1 k/uL (0-0.7); Eosinophils % (A) 1 %; HCT 42.3 % (39.0-53.0); HGB 14.3 gm/dL (13.0-17.5); Lymphocytes # (A) 2.2 k/uL (1.0-4.8); Lymphocytes % (A) 22 %; MCH 30.1 pg (25.0-35.0); MCHC 33.8 g/dL (31.0-37.0); Mean Platelet Volume 7.2; Monocytes # (A) 0.6 k/uL (0-1.0); Monocytes % (A) 7 %; Neutrophils # (A) 6.6 k/uL (1.3-7.7); Neutrophils % (A) 68 %; Platelet Count 287 k/uL (150-450); RBC 4.76 m/uL (4.30-5.90); RDW 12.9 % (11.5-15.5); WBC 9.7 k/uL (3.8-10.6)
[2020-11-18 12:00] LABS: ALT 23 U/L (4-49); AST 27 U/L (17-59); African American GFR (CKD) >90 (>60 ml/min/1.73 sqM); Albumin 4.2 g/dL (3.5-5.0); Alkaline Phosphatase 103 U/L (38-126); Anion Gap 10 mmol/L; Blood Urea Nitrogen 25 mg/dL (9-20); Calcium 9.8 mg/dL (8.4-10.2); Carbon Dioxide 23 mmol/L (22-30); Chloride 108 mmol/L (98-107); Glucose 213 mg/dL (74-99); Magnesium 1.6 mg/dL (1.6-2.3); Non-African American GFR(CKD) >90 (>60 ml/min/1.73 sqM); Potassium 4.2 mmol/L (3.5-5.1); Sodium 141 mmol/L (137-145); Total Bilirubin 0.5 mg/dL (0.2-1.3); Total Protein 6.4 g/dL (6.3-8.2)
--- NOTE | 2020-11-18 12:16 | ED ---
General Adult HPI - General Chief complaint: Chest Pain Stated complaint: Chest pain Time Seen by Provider: 11/18/20 11:15 Source: patient, RN notes reviewed, old records reviewed Mode of arrival: ambulatory Limitations: no limitations - History of Present Illness Initial comments: 45-year-old male presenting for evaluation of chest pain. Pain began this morning just prior to arrival. He had 2 stents placed 2 days ago at this institution by cardiology. He has a known history of CAD. He developed an anterior chest pain which she believes was related to his heart. No associated dyspnea. Patient did not have any vomiting. He states he did become diaphoretic. Pain did not radiate. - Related Data Home Medications Medication Instructions Recorded Confirmed Glimepiride [Amaryl] 2 mg PO BID 05/24/20 11/18/20 [place] Yao 1 tab PO DAILY 11/13/20 11/18/20 Ubidecarenone [Co Q-10] 100 mg PO DAILY 11/13/20 11/18/20 Gabapentin [Neurontin] 400 mg PO TID PRN 11/18/20 11/18/20 Previous Rx's Medication Instructions Recorded Aspirin 81 mg PO DAILY #30 chew 11/17/20 Atorvastatin [Lipitor] 80 mg PO HS #30 tab 11/17/20 Clopidogrel [Plavix] 75 mg PO DAILY #30 tab 11/17/20 Metoprolol Tartrate [Lopressor] 25 mg PO BID #60 tab 11/17/20 Nitroglycerin Sl Tabs [Nitrostat] 0.4 mg SUBLINGUAL Q5M PRN #30 tab 11/17/20 lisinopriL [Zestril] 5 mg PO DAILY #30 tab 11/17/20 metFORMIN HCL [Glucophage] 500 mg PO BID #0 11/17/20 Allergies Allergy/AdvReac Type Severity Reaction Status Date / Time No Known Allergies Allergy Unverified 11/18/20 12:49 Review of Systems ROS Statement: Those systems with pertinent positive or pertinent negative responses have been documented in the HPI. ROS Other: All systems not noted in ROS Statement are negative. Past Medical History Past Medical History: Asthma, Diabetes Mellitus, GERD/Reflux, Hypertension, Myocardial Infarction ([place]), Pneumonia, Sleep Apnea/CPAP/BIPAP Additional Past Medical History / Comment(s): 03-08-16 no cpap machine used, pancreatitis Last Myocardial Infarction Date:: History of Any Multi-Drug Resistant Organisms: None Reported Past Surgical History: Tonsillectomy Additional Past Surgical History / Comment(s): 03/08/16 heart cath stent to 1st diag Past Anesthesia/Blood Transfusion Reactions: No Reported Reaction Past Psychological History: No Psychological Hx Reported Smoking Status: Never smoker Past Alcohol Use History: Occasional Past Drug Use History: Marijuana - Past Family History Mother Family Medical History: Fibromyalgia, Osteoarthritis (OA) Additional Family Medical History / Comment(s): djd/hip replacement, von willebrand's, brother and sister had von willebrand's to. Father Family Medical History: CVA/TIA, Hyperlipidemia, Hypertension, Myocardial Infarction ([place]) Additional Family Medical History / Comment(s): boarderline diabetic Brother(s) Family Medical History: Myocardial Infarction ([place]) General Exam Limitations: no limitations General appearance: alert, in no apparent distress Head exam: Present: atraumatic, normocephalic Eye exam: Present: normal appearance, PERRL ENT exam: Present: normal exam Neck exam: Present: normal inspection. Absent: tenderness, meningismus Respiratory exam: Present: normal lung sounds bilaterally. Absent: respiratory distress, wheezes Cardiovascular Exam: Present: regular rate, normal rhythm GI/Abdominal exam: Present: soft. Absent: distended, tenderness, guarding Extremities exam: Present: normal inspection, normal capillary refill. Absent: pedal edema Neurological exam: Present: alert, oriented X3, CN II-XII intact. Absent: motor sensory deficit Psychiatric exam: Present: anxious Skin exam: Present: warm, dry, intact Course Vital Signs 11/18/20 11:07 Temperature 97.8 F Pulse Rate 92 Respiratory 20 Rate Blood Pressure 120/82 O2 Sat by Pulse 99 Oximetry - Reevaluation(s) Reevaluation #1: 11/18/20 13:30 I did discuss case with both the admitting physician Dr. Perez and the sawmill or timber yard worker Dr. Wall. Dr. Wall feels that that the troponin elevation is likely secondary to recent heart procedure and requests that the enzyme be trended prior to admission. Repeat 3 hour troponin test currently pending. EKG Findings - EKG Comments: EKG Findings:: EKG: Normal sinus rhythm, left anterior fascicular block, rate of 84, LA interval 158, QRS duration 104, QTC 4:[address] segment elevation. Medical Decision Making - Medical Decision Making 45-year-old male who will presented for evaluation of chest pain and chest discomfort. Recent stenting. EKG is sinus rhythm without ST segment elevation. Chest x-ray is clear. He had complained of a headache also and head CT was performed which is negative for intracranial hemorrhage or mass effect. He did have an elevated troponin however when I discussed this with Dr. Wall and recommended that this be trended. Repeat was drawn in the emergency department, repeat is slightly elevated 0.139. I discussed this with Dr. Wall again, r ecommends dual antiplatelet and trended enzymes. He will be admitted to Dr. Perez, who is aware. - Lab Data Result diagrams: 11/18/20 11:30 11/18/20 11:30 Lab Results 11/18/20 11/18/20 11/18/20 Range/Units 11:30 11:30 11:30 WBC 9.7 (3.8-10.6) k/uL RBC 4.76 (4.30-5.90) m/uL Hgb 14.3 (13.0-17.5) gm/dL Hct 42.3 (39.0-53.0) % MCV 89.0 (80.0-100.0) fL MCH 30.1 (25.0-35.0) pg MCHC 33.8 (31.0-37.0) g/dL RDW 12.9 (11.5-15.5) % Plt Count 287 (150-450) k/uL MPV 7.2 Neutrophils % 68 % Lymphocytes % 22 % Monocytes % 7 % Eosinophils % 1 % Basophils % 1 % Neutrophils # 6.6 (1.3-7.7) k/uL Lymphocytes # 2.2 (1.0-4.8) k/uL Monocytes # 0.6 (0-1.0) k/uL Eosinophils # 0.1 (0-0.7) k/uL Basophils # 0.1 (0-0.2) k/uL PT 10.0 (9.0-12.0) sec INR 0.9 (<1.2) APTT 22.7 (22.0-30.0) sec Sodium 141 (137-145) mmol/L Potassium 4.2 (3.5-5.1) mmol/L Chloride 108 H (98-107) mmol/L Carbon Dioxide 23 (22-30) mmol/L Anion Gap 10 mmol/L BUN 25 H (9-20) mg/dL Creatinine 0.62 L (0.66-1.25) mg/dL Est GFR (CKD-EPI)AfAm >90 (>60 ml/min/1.73 sqM) Est GFR (CKD-EPI)NonAf >90 (>60 ml/min/1.73 sqM) Glucose 213 H (74-99) mg/dL Calcium 9.8 (8.4-10.2) mg/dL Magnesium 1.6 (1.6-2.3) mg/dL Total Bilirubin 0.5 (0.2-1.3) mg/dL AST 27 (17-59) U/L ALT 23 (4-49) U/L Alkaline Phosphatase 103 (38-126) U/L Troponin I (0.000-0.034) ng/mL Total Protein 6.4 (6.3-8.2) g/dL Albumin 4.2 (3.5-5.0) g/dL 11/18/20 11/18/20 Range/Units 11:30 14:03 WBC (3.8-10.6) k/uL RBC (4.30-5.90) m/uL Hgb (13.0-17.5) gm/dL Hct (39.0-53.0) % MCV (80.0-100.0) fL MCH (25.0-35.0) pg MCHC (31.0-37.0) g/dL RDW (11.5-15.5) % Plt Count (150-450) k/uL MPV Neutrophils % % Lymphocytes % % Monocytes % % Eosinophils % % Basophils % % Neutrophils # (1.3-7.7) k/uL Lymphocytes # (1.0-4.8) k/uL Monocytes # (0-1.0) k/uL Eosinophils # (0-0.7) k/uL Basophils # (0-0.2) k/uL PT (9.0-12.0) sec INR (<1.2) APTT (22.0-30.0) sec Sodium (137-145) mmol/L Potassium (3.5-5.1) mmol/L Chloride (98-107) mmol/L Carbon Dioxide (22-30) mmol/L Anion Gap mmol/L BUN (9-20) mg/dL Creatinine (0.66-1.25) mg/dL Est GFR (CKD-EPI)AfAm (>60 ml/min/1.73 sqM) Est GFR (CKD-EPI)NonAf (>60 ml/min/1.73 sqM) Glucose (74-99) mg/dL Calcium (8.4-10.2) mg/dL Magnesium (1.6-2.3) mg/dL Total Bilirubin (0.2-1.3) mg/dL AST (17-59) U/L ALT (4-49) U/L Alkaline Phosphatase (38-126) U/L Troponin I 0.129 H* 0.139 H* (0.000-0.034) ng/mL Total Protein (6.3-8.2) g/dL Albumin (3.5-5.0) g/dL Disposition Clinical Impression: Chest pain, Elevated troponin Disposition: ADMITTED IP TO THIS [facility] Condition: Stable Is patient prescribed a controlled substance at d/c from ED?: No Referrals: Neymar Oviedo MD [Primary Care Provider] - 1-2 days Decision to Admit Reason: Admit from EC Decision Date: 11/18/20 Decision Time: 15:06
[2020-11-18 12:17] LABS: INR 0.9 (<1.2); Partial Thromboplastin Time 22.7 sec (22.0-30.0)
--- NOTE | 2020-11-18 12:30 | XR ---
EXAMINATION TYPE: XR chest 1V portable DATE OF EXAM: 11/18/2020 COMPARISON: 10/21/2020 INDICATION: Chest pain, stent 2 days prior TECHNIQUE: Single frontal view of the chest is obtained. FINDINGS: The heart size is normal. The pulmonary vasculature is normal. The lungs are clear. IMPRESSION: 1. No acute pulmonary process.
[2020-11-18] MEDS ORDERED: HEPARIN SODIUM 1,000 UN/ML (10ML VL) IV PRN (12:44)
[2020-11-18] MEDS ORDERED: HEPARIN SODIUM 1,000 UN/ML (10ML VL) IV ONE ×3 (12:44→17:50)
[2020-11-18] MEDS ORDERED: HEPARIN SOD,PORK IN 0.45% NACL 25,000 UNIT in 0.45% NACL 1 250ML.BAG IV SCH (12:45)
--- NOTE | 2020-11-18 14:31 | CT ---
EXAMINATION TYPE: CT brain wo con DATE OF EXAM: 11/18/2020 COMPARISON: None INDICATION: Headache DLP: 1135.4 mGycm, Automated exposure control for dose reduction was used. CONTRAST: None CT of the brain is performed utilizing 3 mm thick sections through the posterior fossa and 3 mm thick sections through the remaining calvarium. Study is performed within 24 hours of arrival to the hosp [facility]. No abnormal hyperdensity is present to suggest an acute intracranial hemorrhage. No mass lesion is evident. No acute infarcts are evident. Ventricles and sulci are appropriate for the patient age. Paranasal sinuses and mastoid air cells within the [id number] are clear. IMPRESSIONS: 1. Normal CT Brain
[2020-11-18] MEDS ORDERED: GABAPENTIN 400 MG CAP PO PRN (14:57)
[2020-11-18] MEDS ORDERED: NITROGLYCERIN SL TABS 0.4 MG TAB SUBLINGUAL PRN ×3 (14:57→18:14)
[2020-11-18] MEDS ORDERED: NALOXONE 0.4 MG/ML 1 ML VIAL IV PRN (14:58)
[2020-11-18] MEDS ORDERED: ALPRAZolam 0.5 MG TAB PO PRN (15:26)
[2020-11-18] MEDS ORDERED: ATORVASTATIN 80 MG TAB PO STA (15:26)
[2020-11-18] MEDS ORDERED: ALPRAZolam 0.25 MG TAB PO PRN (15:26)
[2020-11-18] MEDS ORDERED: SODIUM CHLORIDE 0.9% 1,000 ML in EMPTY BAG 1 BAG IV ONE (15:26)
[2020-11-18] MEDS: HYDROmorphone 0.5 MG/0.5 ML SYRINGE IVP PRN ×2 (15:28→18:54)
[2020-11-18] MEDS: LORazepam 0.5 MG TAB PO PRN ×2 (15:28→19:33)
--- NOTE | 2020-11-18 16:25 | P.HPIM ---
History of Present Illness H&P Date: 11/18/20 Chief Complaint: Chest pain 45-year-old male presenting for evaluation of chest pain. Pain began this morning just prior to arrival. He had 2 stents placed 2 days ago at this institution by cardiology. He has a known history of CAD. He developed an anterior chest pain which she believes was related to his heart. No associated dyspnea. Patient did not have any vomiting. He states he did become diaphoretic. Pain did not radiate. EKG: Normal sinus rhythm, left anterior fascicular block, rate of 84, RI interval 158, QRS duration 104, QTC 4:[address] segment elevation. Chest x-ray is clear. He had complained of a headache also and head CT was performed which is negative for intracranial hemorrhage or mass effect. He did have an elevated troponin; patient was discussed with Dr. Wall and recommended that this be trended. Repeat was drawn in the emergency department, repeat is slightly elevated 0.139; Dr. Wall recommends dual antiplatelet and trended enzymes. Review of Systems REVIEW OF SYSTEMS: CONSTITUTIONAL: No fever, no malaise, no fatigue. HEENT: No recent visual problems or hearing problems. Denied any sore throat. CARDIOVASCULAR: chest pain, orthopnea, PND, no palpitations, no syncope. PULMONARY: No shortness of breath, no cough, no hemoptysis. GASTROINTESTINAL: No diarrhea, no nausea, no vomiting, no abdominal pain. NEUROLOGICAL: No headaches, no weakness, no numbness. HEMATOLOGICAL: Denies any bleeding or petechiae. GENITOURINARY: Denies any burning micturition, frequency, or urgency. MUSCULOSKELETAL/RHEUMATOLOGICAL: Denies any joint pain, swelling, or any muscle pain. ENDOCRINE: Denies any polyuria or polydipsia. The rest of the 14-point review of systems is negative. Past Medical History Past Medical History: Asthma, Diabetes Mellitus, GERD/Reflux, Hypertension, Myocardial Infarction ([place]), Pneumonia, Sleep Apnea/CPAP/BIPAP Additional Past Medical History / Comment(s): 03-08-16 no cpap machine used, pancreatitis Last Myocardial Infarction Date:: History of Any Multi-Drug Resistant Organisms: None Reported Past Surgical History: Tonsillectomy Additional Past Surgical History / Comment(s): 03/08/16 heart cath stent to 1st diag Past Anesthesia/Blood Transfusion Reactions: No Reported Reaction Past Psychological History: No Psychological Hx Reported Smoking Status: Never smoker Past Alcohol Use History: Occasional Past Drug Use History: Marijuana - Past Family History Mother Family Medical History: Fibromyalgia, Osteoarthritis (OA) Additional Family Medical History / Comment(s): djd/hip replacement, von willebrand's, brother and sister had von willebrand's to. Father Family Medical History: CVA/TIA, Hyperlipidemia, Hypertension, Myocardial Infarction (UT) Additional Family Medical History / Comment(s): boarderline diabetic Brother(s) Family Medical History: Myocardial Infarction ([place]) Medications and Allergies Home Medications Medication Instructions Recorded Confirmed Type Glimepiride [Amaryl] 2 mg PO BID 05/24/20 11/18/20 History [place] Yao 1 tab PO DAILY 11/13/20 11/18/20 History Ubidecarenone [Co Q-10] 100 mg PO DAILY 11/13/20 11/18/20 History Aspirin 81 mg PO DAILY #30 chew 11/17/20 11/18/20 Rx Atorvastatin [Lipitor] 80 mg PO HS #30 tab 11/17/20 11/18/20 Rx Clopidogrel [Plavix] 75 mg PO DAILY #30 tab 11/17/20 11/18/20 Rx Metoprolol Tartrate [Lopressor] 25 mg PO BID #60 tab 11/17/20 11/18/20 Rx Nitroglycerin Sl Tabs [Nitrostat] 0.4 mg SUBLINGUAL Q5M PRN #30 tab 11/17/20 11/18/20 Rx lisinopriL [Zestril] 5 mg PO DAILY #30 tab 11/17/20 11/18/20 Rx metFORMIN HCL [Glucophage] 500 mg PO BID #0 11/17/20 11/18/20 Rx Gabapentin [Neurontin] 400 mg PO TID PRN 11/18/20 11/18/20 History Allergies Allergy/AdvReac Type Severity Reaction Status Date / Time No Known Allergies Allergy Unverified 11/18/20 12:49 Physical Exam Vitals: Vital Signs Temp Pulse Resp BP Pulse Ox 11/18/20 11:07 97.8 F 92 20 120/82 99 Intake and Output 11/18/20 11/18/20 11/18/20 06:59 14:59 22:59 Other: Weight 90.718 kg Results CBC & Chem 7: 11/18/20 11:30 11/18/20 11:30 Labs: Abnormal Lab Results - Last 24 Hours (Table) 11/18/20 11/18/20 11/18/20 Range/Units 11:30 11:30 14:03 Chloride 108 H (98-107) mmol/L BUN 25 H (9-20) mg/dL Creatinine 0.62 L (0.66-1.25) mg/dL Glucose 213 H (74-99) mg/dL Troponin I 0.129 H* 0.139 H* (0.000-0.034) ng/mL Assessment and Plan Assessment: 1. Chest pain/NST [place]/unstable angina - Patient had recent cardiac catheterization with stent placement; initial troponin was found to be elevated at 0.129 which was deemed secondary to recent procedure; cardiology recommending to continue to trend troponin which came back slightly elevated at 0.139; EKG remains unremarkable; we will continue to trend troponin and admit patient to PCU; cardiology to evaluate and make further yandel mmendations - Patient is currently on aspirin, statins, Plavix and IV heparin - Patient is placed on sublingual nitroglycerin for chest pain along with IV Dilaudid to be used as needed 2. Hyperglycemia without acidosis/neuropathy; we will monitor Accu-Cheks before meals and at bedtime with sliding scale - Continue with home dose of Neurontin at 400 mg 3 times a day when necessary 3. Hyperlipidemia; Lipitor 80 mg by mouth daily at bedtime 4. Hypertension; stable on lisinopril 5 mg daily; metformin 25 mg twice a day 5. Diabetes mellitus type 2 without long-term insulin use; metformin 500 mg twice a day; we will monitor Accu-Cheks before meals and at bedtime with insulin sliding scale DVT prophylaxis; SCDs/IV heparin CODE STATUS; full code
[2020-11-18] MEDS ORDERED: fentaNYL (PF) 50 MCG/ML 2 ML AMP ONE (17:07)
[2020-11-18] MEDS ORDERED: LIDOCAINE 1% INJ 10MG/ML (20 ML MDV) ONE (17:13)
[2020-11-18] MEDS ORDERED: SODIUM CHLORIDE 0.9% 1,000 ML IV ONE (17:14)
[2020-11-18] MEDS ORDERED: MIDAZOLAM 2 MG/2 ML VIAL IV ONE ×3 (17:38→17:48)
[2020-11-18] MEDS: fentaNYL (PF) 50 MCG/ML 2 ML AMP IV ONE ×2 (17:39→17:44)
[2020-11-18] MEDS ORDERED: LIDOCAINE 1% INJ 10MG/ML (20 ML MDV) SQ ONE (17:41)
[2020-11-18] MEDS ORDERED: HEPARIN SODIUM 1,000 UN/ML (10ML VL) ONE (17:49)
[2020-11-18] MEDS ORDERED: NITROGLYCERIN 1000MCG/10ML SYRINGE INTRACORON ONE (18:02)
[2020-11-18] MEDS ORDERED: CLOPIDOGREL 75 MG TAB ONE (18:03)
[2020-11-18] MEDS ORDERED: IOPAMIDOL-370 125ML BTL INJ ONE ×2 (18:10)
[2020-11-18] MEDS ORDERED: CLOPIDOGREL 75 MG TAB PO ONE (18:12)
[2020-11-18] MEDS ORDERED: MAG HYDROX/AL HYDROX/SIMETH 30 ML CUP PO PRN (18:14)
[2020-11-18] MEDS ORDERED: RX INFO: IV CONTRAST WAS GIVEN 1 EACH MISC MISCELLANE PRN (18:14)
[2020-11-18] MEDS ORDERED: ATROPINE SULFATE 0.1 MG/ML 10ML SYRINGE IV PRN (18:14)
[2020-11-18] MEDS ORDERED: ZOLPIDEM 5 MG TAB PO PRN (18:14)
[2020-11-18] MEDS ORDERED: SODIUM CHLORIDE 0.9% 1,000 ML IV SCH (18:15)
[2020-11-18] MEDS ORDERED: LORazepam 2 MG/ML INJ IV PRN (20:10)
--- NOTE | 2020-11-18 20:34 | CONS ---
CONSULTATION Mr. Mims is a 45-year-old male who was just discharged from the hospital and presents back with chest pain. He has a known history of coronary artery disease, is status post stenting of the diagonal branch in 2016, history of hypertension, hyperlipidemia, diabetes mellitus, as well as marijuana use. He presented to the hospital on the with symptoms of chest discomfort. He had no enzymatic changes. He subsequently underwent myocardial perfusion imaging that was abnormal, underwent cardiac catheterization by Dr. Galeano and was found to have significant stenosis in the LAD and the PDA, as well as small PLV. He underwent stenting of the PDA and the LAD. He had no restenosis in the diagonal branch. He was discharged home and yesterday and today woke up felt headache, then diaphoretic and chest discomfort similar to the pain that he had. He came into the emergency room. He feels dyspneic and dizzy. He denies any vomiting. He has some nausea. No palpitation. He had an echocardiogram done in September of this year, revealed ejection fraction 45-50 percent with mild tricuspid regurgitation. MEDICATION: At time of admission included aspirin, Lipitor 80 mg daily, Plavix 75 mg daily, Amaryl 2 mg twice a day, metoprolol tartrate 25 mg twice a day, lisinopril 5 mg daily, gabapentin on a p.r.n. basis, metformin 500 mg twice a day. REVIEW OF SYSTEMS: RESPIRATORY SYSTEM: He had dyspnea on exertion. He has no recent cough. GI SYSTEM: No recent GI bleeding. He had nausea. SYSTEM: No dysuria, hematuria. NERVOUS SYSTEM: No stroke or seizure. PHYSICAL EXAMINATION: A 45-year-old male, alert, oriented, in no apparent distress. Blood pressure 120/80 with a heart rate in 90s. HEAD: Normocephalic. EYES: Sclerae anicteric. NECK: Good upstroke, no bruit, no change distention. LUNGS: Clear to auscultation. HEART: Regular rate and rhythm. S1, S2. No S3. No S4. No murmur or rub. ABDOMEN: Soft, nontender, positive bowel sounds. No organomegaly. EXTREMITIES: No edema, intact pulses. LAB DATA: Revealed BUN and creatinine 25 and 0.62, potassium 4.2, hemoglobin 14.3. Troponin 0.12 and 0.139. His EKG reveals sinus mechanism, left axis, poor progression. No acute ST- segment changes. His chest x-ray performed today revealed no infiltrate. IMPRESSION: 1. Chest discomfort of unclear etiology. The patient had mild troponin elevation, although I would expect if he had acute stent closure, that he will have significant troponin elevation and more EKG changes. He had significant stenosis in the PLV of small caliber. 2. Prior history of myocardial infarction and stenting of the diagonal branch, patent. 3. Hypertension. 4. Hyperlipidemia. 5. Diabetes mellitus. RECOMMENDATION: I discussed with the patient the findings. I have discussed the findings as well with Dr. Galeano and I have recommended proceeding with repeat coronary angiography to assess his status and guide his treatment. The rationale behind the procedure as risks and the complications were discussed with the patient who is in full understanding and agreement. Thank you for this consult. We will follow with you. ALFRED / CASSANDRA: [id number] /
[2020-11-18] MEDS ORDERED: metFORMIN 500 MG TAB PO SCH (21:00)
[2020-11-18] MEDS ORDERED: ATORVASTATIN 80 MG TAB PO SCH (21:00)
--- NOTE | 2020-11-18 21:00 | CC ---
CARDIAC CATHETERIZATION REPORT DATE OF SERVICE: 11/18/2020 PERFORMING PHYSICIAN: Mitesh Galeano MD. PROCEDURE PERFORMED: 1. Selective right and left coronary angiogram. 2. Successful stenting of the PLV branch of the right coronary artery using 2.0 x 15 mm [place] drug-eluting stent with an excellent angiographic result and reduction of stenosis from 80% to 0%. INDICATION: This is a 45-year-old gentleman with coronary artery disease and prior stenting of the diagonal several years ago and for the LAD and PDA branch of the RCA a few days ago after he presented with chest discomfort and underwent myocardial perfusion imaging stress test and that revealed an apical ischemia, where the patient was discharged at that point in stable medical condition, presented back to the hospital complaining of chest discomfort. His troponin went up slightly. Because his troponin went up slightly, the decision was made towards heart catheterization and percutaneous coronary intervention after the patient was seen by Dr. Wall in the emergency department. APPROACH: Right common femoral artery. COMPLICATION: None. LEVEL OF SEDATION: Moderate with sedation length of 25 minutes. PROCEDURE DESCRIPTION: After obtaining an informed consent, the patient was brought to the cardiac laborer stores. The right common femoral artery was cannulated using micropuncture technique, the micropuncture wire passed easily. Then, I placed a 6-Hebrew sheath at the right common femoral artery. Selective left and right coronary angiogram was performed using JL4 and JR4 catheters. I did intervene on the RCA, please see a separate paragraph for that. SELECTIVE CORONARY ANGIOGRAM: 1. The right coronary artery is a large caliber vessel. It is a dominant vessel. The RCA, in the proximal and mid and distal portion, appeared to be angiographically normal. After that, it bifurcates into PDA and PLV branches. The PDA branch is stented and the stent appeared to be patent. The PLV branch has a lesion, appeared to be in the range of 70% to 80%. 2. The left main is angiographically normal. It bifurcates into LCX and LAD. 3. The LCX is a large caliber vessel. It is a nondominant vessel. The LCX appeared to be angiographically normal. It gives rise into the 1st and 2nd and 3rd obtuse marginal branches. No high-grade stenosis was identified in the left circumflex coronary artery. 4. The LAD. The proximal LAD appeared to be angiographically normal. It gives rise into a large diagonal branch, which is stented and the stent overall appeared to be patent. The mid LAD has a long tubular lesion, appeared to be in the range of 50% and the LAD after that is stented and the stent is patent. 5. PCI of the RCA. 6. Anticoagulation was initiated using heparin with continuous ACT monitoring throughout the procedure. Subsequently, I did engage the RCA using JR4 guide. After that, I did wire the PLV branch of the RCA using a run-through wire. Balloon angioplasty was performed using 2.0 x 12 mm balloon before I deployed a 2.0 x 15 mm Vishnu drug-eluting stent, where the stent was positioned under fluoroscopic guidance and deployed under its nominal pressure. The following angiogram showed excellent angiographic results and the procedure was completed without any complication. CONCLUSION: 1. Acute afo-CV-snwurmhrf myocardial infarction in this 45-year-old gentleman, who is known to have coronary artery disease with multivessel stenting, as described above. 2. Patent stent in the diagonal branch of the LAD. 3. Patent stent in the mid LAD. The LAD proximal to the stented segment appeared to have a long tubular lesion in the range of 50%, seems to be unchanged compared to before. 4. Patent stent in the PDA branch of the RCA. The PLV branch of the artery has a tight lesion. I did successful stenting of the PLV branch, as described above. POSTPROCEDURE MANAGEMENT: 1. Dual anti-platelet therapy. 2. Aggressive cholesterol control. 3. Risk factor modifications. 4. Follow up with the patient. MMODL / IJN: [id number] /
[2020-11-18] MEDS: HYDROmorphone 1 MG/ML 1 ML SYRINGE IVP PRN (22:36)
[2020-11-18] MEDS: METOPROLOL TARTRATE 25 MG TAB PO SCH (22:37)
[2020-11-19] MEDS: HYDROmorphone 1 MG/ML 1 ML SYRINGE IVP PRN ×4 (02:51→16:34)
[2020-11-19] MEDS ORDERED: HEPARIN SODIUM,PORCINE 10,000 UNIT in SODIUM CHLORIDE 0.9% 1,000 ML IRRIGATION PRN (07:00)
[2020-11-19] MEDS ORDERED: HEPARIN SODIUM,PORCINE 2,500 UNIT in SODIUM CHLORIDE 0.9% 250 ML IRRIGATION PRN (07:00)
[2020-11-19] MEDS: METOPROLOL TARTRATE 25 MG TAB PO SCH (08:09)
[2020-11-19] MEDS ORDERED: CLOPIDOGREL 75 MG TAB PO SCH (09:00)
[2020-11-19] MEDS ORDERED: ASPIRIN 81 MG PO SCH (09:00)
[2020-11-19] MEDS ORDERED: NON FORMULARY DRUG (Ubidecarenone [Co Q-10] 100 MG Capsule) PO SCH (09:00)
[2020-11-19] MEDS ORDERED: lisinopriL 5 MG TAB PO SCH (09:00)
--- NOTE | 2020-11-19 10:28 | PN ---
PROGRESS NOTE Mr. Mims is a 45-year-old male with known history of coronary artery disease, history of hypertension, hyperlipidemia, diabetes mellitus, who presented with symptoms of chest discomfort. He recently underwent stenting of the LAD and the PDA. He had minimal troponin elevation and underwent cardiac catheterization by Dr. Galeano and was found to have patent stent, but he had a lesion in the PLV that was noted in the past. Underwent stenting of that vessel. He is doing well this morning, has minimal chest discomfort. His breathing has been stable. He has been ambulating without difficulty. He denies any dizziness or palpitation. He received a 2.0 x 15 mm Vishnu Resolute. He continues on aspirin once a day, Plavix 75 mg daily, Lipitor 80 mg daily, lisinopril 5 mg daily, metoprolol tartrate 25 mg twice a day. PHYSICAL EXAMINATION: VITAL SIGNS: Blood pressure 139/90 with a heart rate in 70s. LUNGS: Clear. HEART: Regular rate and rhythm S1, S2. No S3. No rub. ABDOMEN: Soft and nontender. Right groin no hematoma. EKG no acute changes. IMPRESSION: 1. Status post stenting of the right PLV. 2. Non ST-segment elevation myocardial infarction. 3. Status post recent stenting of the PDA and LAD. 4. Hypertension. 5. Hyperlipidemia. 6. Diabetes mellitus. RECOMMENDATION: From the cardiac standpoint, he should be able to be discharged home today and follow up with Dr. Galeano next week. He will resume metformin in 48 hours. MMODL / IJN: [id number] /
[2020-11-19] MEDS ORDERED: PANTOPRAZOLE 40 MG TABLET PO SCH (12:00)
[2020-11-19 12:19] LABS: Glucose,Whole Blood 119 mg/dL (75-99)
[2020-11-19 13:43] VITALS: BMI 27.8
[2020-11-19 16:32] VITALS: BP 152/94; PULSE 79; RESP 16; TEMP 98.8
--- NOTE | 2020-11-28 19:49 | P.PN ---
Subjective Progress Note Date: 11/19/20 Principal diagnosis: chest pain 45-year-old male presenting for evaluation of chest pain. Pain began this morning just prior to arrival. He had 2 stents placed 2 days ago at this institution by cardiology. He has a known history of CAD. He developed an anterior chest pain which she believes was related to his heart. No associated dyspnea. Patient did not have any vomiting. He states he did become diaphoretic. Pain did not radiate. EKG: Normal sinus rhythm, left anterior fascicular block, rate of 84, HI interval 158, QRS duration 104, QTC 4:[address] segment elevation. Chest x-ray is clear. He had complained of a headache also and head CT was performed which is negative for intracranial hemorrhage or mass effect. He did have an elevated troponin; patient was discussed with Dr. Wall and recommended that this be trended. Repeat was drawn in the emergency department, repeat is slightly elevated 0.139; Dr. Wall recommends dual antiplatelet and trended enzymes. Objective - Vital Signs Vital signs: Vital Signs Temp 98.8 F 11/19/20 16:29 Pulse 79 11/19/20 16:29 Resp 16 11/19/20 16:29 BP 152/94 11/19/20 16:29 Pulse Ox 98 11/19/20 16:29 Intake & Output 11/18/20 11/19/20 11/19/20 18:59 06:59 18:59 Intake Total 200 120 0 Output Total 450 Balance 200 -330 0 Weight 90.718 kg 95.5 kg 95.5 kg Intake: IV 200 Oral 120 0 Output: Urine 450 Other: Voiding Method Urinal Urinal # Voids 1 - Constitutional General appearance: Present: no acute distress - EENT Eyes: Present: EOMI, normal appearance - Respiratory Respiratory: bilateral: CTA - Cardiovascular Rhythm: regular Heart sounds: normal: S1, S2 - Gastrointestinal General gastrointestinal: Present: soft. Absent: tenderness - Labs CBC & Chem 7: 11/18/20 11:30 11/18/20 11:30 Labs: Abnormal Lab Results - Last 24 Hours (Table) 11/18/20 11/19/20 Range/Units 17:00 12:16 POC Glucose (mg/dL) 119 H (75-99) mg/dL Troponin I 0.144 H* (0.000-0.034) ng/mL Assessment and Plan Assessment: 1. Chest pain/NST [place]/unstable angina - Patient had recent cardiac catheterization with stent placement; initial troponin was found to be elevated at 0.129 which was deemed secondary to recent procedure; cardiology recommending to continue to trend troponin which came back slightly elevated at 0.139; EKG remains unremarkable; we will continue to trend troponin and admit patient to PCU; cardiology to evaluate and make further recommendations - Patient is currently on aspirin, statins, Plavix and IV heparin - Patient is placed on sublingual nitroglycerin for chest pain along with IV Dilaudid to be used as needed 2. Hyperglycemia without acidosis/neuropathy; we will monitor Accu-Cheks before meals and at bedtime with sliding scale - Continue with home dose of Neurontin at 400 mg 3 times a day when necessary 3. Hyperlipidemia; Lipitor 80 mg by mouth daily at bedtime 4. Hypertension; stable on lisinopril 5 mg daily; metformin 25 mg twice a day 5. Diabetes mellitus type 2 without long-term insulin use; metformin 500 mg twice a day; we will monitor Accu-Cheks before meals and at bedtime with insulin sliding scale DVT prophylaxis; SCDs/IV heparin CODE STATUS; full code
--- NOTE | 2021-01-19 22:58 | P.DS ---
Providers Date of admission: 11/18/20 14:58 Expected date of discharge: 11/19/20 Attending physician: Helen Andrea Consults: 11/18/20 14:59 Consult Physician Routine Consulting Provider: Ajith Wall Consult Reason/Comments: CP Do you want consulting provider notified?: Already Contacted 11/18/20 18:15 Consult Physician Routine Consulting Provider: Cardiology [facility]ante Consult Reason/Comments: Post Interventional patient Do you want consulting provider notified?: Already Contacted Primary care physician: [facility] Course: 45-year-old male presenting for evaluation of chest pain. Pain began this morning just prior to arrival. He had 2 stents placed 2 days ago at this institution by cardiology. He has a known history of CAD. He developed an anterior chest pain which she believes was related to his heart. No associated dyspnea. Patient did not have any vomiting. He states he did become diaphoretic. Pain did not radiate. EKG: Normal sinus rhythm, left anterior fascicular block, rate of 84, [place] interval 158, QRS duration 104, QTC 4:[address] segment elevation. Chest x-ray is clear. He had complained of a headache also and head CT was performed which is negative for intracranial hemorrhage or mass effect. He did have an elevated troponin; patient was discussed with Dr. Wall and recommended that this be trended. Repeat was drawn in the emergency department, repeat is slightly elevated 0.139; Dr. Wall recommends dual antiplatelet and trended enzymes. Patient underwent cath with stenting of right PLV; he was cleared for dc by cardiology but c/o CP and wanted to be observed and re-evaluated by cardiology but later that evening signed out AMA Patient Condition at Discharge: Stable Plan - Discharge Summary Discharge Rx Participant: Yes New Discharge Prescriptions: No Action Glimepiride [Amaryl] 2 mg PO BID Ubidecarenone [Co Q-10] 100 mg PO DAILY [place] Yao 1 tab PO DAILY Atorvastatin [Lipitor] 80 mg PO HS #30 tab metFORMIN HCL [Glucophage] 500 mg PO BID #0 Aspirin 81 mg PO DAILY #30 chew Metoprolol Tartrate [Lopressor] 25 mg PO BID #60 tab Nitroglycerin Sl Tabs [Nitrostat] 0.4 mg SUBLINGUAL Q5M PRN #30 tab PRN Reason: Chest Pain Clopidogrel [Plavix] 75 mg PO DAILY #30 tab lisinopriL [Zestril] 5 mg PO DAILY #30 tab Gabapentin [Neurontin] 400 mg PO TID PRN PRN Reason: Pain Discharge Medication List Glimepiride [Amaryl] 2 mg PO BID 05/24/20 [History] [place] Yao 1 tab PO DAILY 11/13/20 [History] Ubidecarenone [Co Q-10] 100 mg PO DAILY 11/13/20 [History] Aspirin 81 mg PO DAILY #30 chew 11/17/20 [Rx] Atorvastatin [Lipitor] 80 mg PO HS #30 tab 11/17/20 [Rx] Clopidogrel [Plavix] 75 mg PO DAILY #30 tab 11/17/20 [Rx] Metoprolol Tartrate [Lopressor] 25 mg PO BID #60 tab 11/17/20 [Rx] Nitroglycerin Sl Tabs [Nitrostat] 0.4 mg SUBLINGUAL Q5M PRN #30 tab 11/17/20 [Rx] lisinopriL [Zestril] 5 mg PO DAILY #30 tab 11/17/20 [Rx] metFORMIN HCL [Glucophage] 500 mg PO BID #0 11/17/20 [Rx] Gabapentin [Neurontin] 400 mg PO TID PRN 11/18/20 [History] Follow up Appointment(s)/Referral(s): Mitesh Galeano MD [STAFF PHYSICIAN] - 1 Week Neymar Oviedo MD [Primary Care Provider] - 1-2 days Activity/Diet/Wound Care/Special Instructions: Resume Metformin in 48 hours Discharge Disposition: Left Against Medical Advice
== END 2020-11-19 17:55 | disposition left against medical advice (07) ==
LOC: EC 11:05 → 3SCARD 14:58
PROVIDERS: ADMIT Internal Medicine; ATTEND Internal Medicine
DX: I21.4 Non-ST elevation (NSTEMI) myocardial infarction (principal); I25.110 Atherosclerotic heart disease of native coronary artery with unstable angina pectoris; E11.65 Type 2 diabetes mellitus with hyperglycemia; E78.5 Hyperlipidemia, unspecified; I10 Essential (primary) hypertension; I25.2 Old myocardial infarction; I44.4 Left anterior fascicular block; J45.909 Unspecified asthma, uncomplicated; F12.90 Cannabis use, unspecified, uncomplicated; G47.30 Sleep apnea, unspecified; Z79.02 Long term (current) use of antithrombotics/antiplatelets; Z79.82 Long term (current) use of aspirin; Z79.84 Long term (current) use of oral hypoglycemic drugs; Z79.899 Other long term (current) drug therapy; Z95.5 Presence of coronary angioplasty implant and graft; Z87.01 Personal history of pneumonia (recurrent); Z87.19 Personal history of other diseases of the digestive system; Z82.49 Family history of ischemic heart disease and other diseases of the circulatory system; Z83.3 Family history of diabetes mellitus; Z82.61 Family history of arthritis; Z82.69 Family history of other diseases of the musculoskeletal system and connective tissue; Z83.2 Family history of diseases of the blood and blood-forming organs and certain disorders involving the immune mechanism
CPT/HCPCS: 99285; 96374; 93454; 96375; 36415; 93005; 80053; 83735; 84484; 85025; 85610; 85730; 71045; 70450; C9600; G0378 ×2; C1887; C1725; C1769 ×3; C1894; C1874; J2250; J2060; J2405; J2001; J3010; J1644; J1170 ×3; Q9967

== ENCOUNTER → 2023-02-05 | Outpatient (CLI) | payer SELFPAY ==
--- NOTE | 2023-02-05 12:55 | US ---
EXAMINATION TYPE: US abdomen complete DATE OF EXAM: 02/05/2023 COMPARISON: NONE CLINICAL INDICATION: Male, 47 years old with history of R10.11 RUQ PAIN; pain nausea and vomiting TECHNIQUE: Multiple sonographic images of the abdomen are obtained. FINDINGS: EXAM MEASUREMENTS: Liver Length: 18 cm Gallbladder Wall: .4 cm CBD: .6 cm Spleen: 15.1 cm Right Kidney: 11.4 x 5.6 x 4.3 cm Left Kidney: 12.2 x 6.4 x 5.2 cm CARCASS WASHER NOTES: Pancreas: Obscured by bowel gas Liver: Increased attenuation Gallbladder: Multiple echogenic foci and low level echoes seen. Evidence for sonographic Mims's sign: yes CBD: upper limits Spleen: Splenomegaly Right Kidney: No hydronephrosis or masses seen Left Kidney: No hydronephrosis or masses seen Upper IVC: wnl Abd Aorta: Obscured by overlying bowel gas The liver is homogenous without focal lesion. The intrahepatic portion of the IVC is within normal l imits. The abdominal aorta is obscured by overlying bowel gas. Multiple nonshadowing echogenic foci w ithin the gallbladder with low level echoes. Per billet straightener, positive sonographic Mims sign. Comm on bile duct is at the upper limits of normal. The visualized portions of the pancreas are homogenous . The spleen is unremarkable. Kidneys are symmetric and free of hydronephrosis. No renal lesions a re seen. IMPRESSION: 1. Cholelithiasis and/or biliary sludge without evidence of wall thickening or pericholecystic fluid. Reported positive sonographic Mims sign. Findings are equivocal for acute cholecystitis. Consider further evaluation with nuclear medicine HIDA scan. 2. Mild splenomegaly.
== END | disposition home or self-care (01) ==
LOC: RADUSWWP 12:23
PROVIDERS: ATTEND Family Medicine
DX: K80.20 Calculus of gallbladder without cholecystitis without obstruction (principal); R16.1 Splenomegaly, not elsewhere classified; R10.11 Right upper quadrant pain
CPT/HCPCS: 76700

== ENCOUNTER 2023-05-02 11:39 | Inpatient (IN) | payer OTHER ==
--- NOTE | 2023-05-02 12:03 | ED ---
Chest Pain HPI - General Source: patient Mode of arrival: ambulatory Limitations: no limitations <Tanisha White - Last Filed: 05/02/23 12:01> - General Source: patient, RN notes reviewed, old records reviewed <Gabriel Mcrae - Last Filed: 05/02/23 22:29> - General Chief Complaint: Chest Pain Stated Complaint: chest pains Time Seen by Provider: 05/02/23 12:03 - History of Present Illness Initial Comments: The patient's 47-year-old gentleman with a history of 4 cardiac stents presents emergency room with complaints of mid chest pain that radiates through to the back that started 2 days ago. Patient states is fairly constant however does in crease in intensity. He has some shortness of breath as well. He denies any cough or fever. Denies any hemoptysis. Patient states that it feels similar to GERD however has not improved with the omeprazole. Does state it feels similar to when he has cardiac stents placed in the past. He sees Dr Christianson. Has not had a cardiac cath or stent placed for several years. (Tanisha White) Patient is a 47-year-old male who presents emergency Department complaining of chest pain. Has a history of multiple cardiac stents. States the pain has been present for a few days. Primarily substernal, some mild radiation towards left arm but currently is just located substernally. States is somewhat improved at this time but no known provocative or palliative factors. Took Cialis 2 days ago and therefore is refusing nitro tablets. Denies any history of blood clots. States he occasionally gets short of breath with it as well. Denies any nausea or vomiting. Denies diarrhea. Denies sick contacts. Does endorse a mild headache with it as well. Presents for further evaluation at this time. States somewhat similar to his previous chest pain when he required stents. Presents for further evaluation at this time.Patient originally evaluated as a quick note. (Gabriel Mcrae) - Related Data Home Medications Medication Instructions Recorded Confirmed Atorvastatin [Lipitor] 40 mg PO HS 02/06/23 05/02/23 Omeprazole [PriLOSEC] 40 mg PO DAILY 02/06/23 05/02/23 Aspirin EC [Ecotrin] 325 mg PO DAILY 05/02/23 05/02/23 Cefdinir [Omnicef] 300 mg PO Q12HR 05/02/23 05/02/23 Losartan [Cozaar] 25 mg PO DAILY 05/02/23 05/02/23 Metoprolol Succinate (ER) [Toprol 50 mg PO DAILY 05/02/23 05/02/23 Xl] Semaglutide [Ozempic] 0.5 mg SQ TH 05/02/23 05/02/23 tadalafiL 20 mg PO DAILY PRN 05/02/23 05/02/23 Previous Rx's Medication Instructions Recorded Ibuprofen [Motrin] 600 mg PO Q6HR PRN #40 tab 02/07/23 Allergies Allergy/AdvReac Type Severity Reaction Status Date / Time No Known Allergies Allergy Verified 05/02/23 20:13 Review of Systems ROS Other: All systems not noted in ROS Statement are negative. <Tanisha White - Last Filed: 05/02/23 12:01> ROS Other: All systems not noted in ROS Statement are negative. <Gabriel Mcrae - Last Filed: 05/02/23 22:29> ROS Statement: Those systems with pertinent positive or pertinent negative responses have been documented in the HPI. Review of Systems: CONST: Denies fever EYES: Denies blurry vision ENT: Denies nasal congestion C/V: Endorses chest pain RESP: Denies shortness of breath GI: Denies abdominal pain : Denies dysuria SKIN: Denies rash. MSK: Denies joint pain. NEURO: Denies headache (Gabriel Mcrae) EKG Findings - EKG Comments: EKG Findings:: 12-lead Electrocardiogram Interpretation Note. EKG was reviewed and interpreted by myself. 12-lead ECG performed at 1157 is interpreted by me as revealing normal sinus rhythm at a rate of 89 beats per minute. Left axis deviation. MN interval is 162 ms, QRS duration is 104 ms, QTc is 400 ms.. There were no ST or T wave abnormalities to suggest myocardial ischemia or injury. R wave progression across the precordium was satisfactory. By my interpretation this EKG is non-diagnostic for acute ischemia. 12-lead Electrocardiogram Interpretation Note. EKG was reviewed and interpreted by myself. 12-lead ECG performed at 1759 is interpreted by me as revealing normal sinus rhythm at a rate of 75 beats per minute. [place] is normal. MN interval is 164 ms, QRS duration is 107 ms, QTc is 404 ms.. There were no ST or T wave abnormalities to suggest myocardial ischemia or injury. R wave progression across the precordium was satisfactory. By my interpretation this EKG is non- diagnostic for acute ischemia. - EKG Results: EKG: interpreted by ERMD <Gabriel Mcrae - Last Filed: 05/02/23 22:29> Past Medical History Past Medical History: Asthma, Diabetes Mellitus, GERD/Reflux, Hypertension, Myocardial Infarction ([place]), Pneumonia, Sleep Apnea/CPAP/BIPAP Additional Past Medical History / Comment(s): 03-08-16 no cpap machine used, pancreatitis Last Myocardial Infarction Date:: History of Any Multi-Drug Resistant Organisms: None Reported Past Surgical History: Tonsillectomy Additional Past Surgical History / Comment(s): 03/08/16 heart cath stent to 1st diag Past Anesthesia/Blood Transfusion Reactions: No Reported Reaction Past Psychological History: No Psychological Hx Reported Smoking Status: Former smoker Past Alcohol Use History: Occasional Past Drug Use History: Marijuana - Past Family History Mother Family Medical History: Fibromyalgia, Osteoarthritis (OA) Additional Family Medical History / Comment(s): djd/hip replacement, von willebrand's, brother and sister had von willebrand's to. Father Family Medical History: CVA/TIA, Hyperlipidemia, Hypertension, Myocardial Infarction ([place]) Additional Family Medical History / Comment(s): boarderline diabetic Brother(s) Family Medical History: Myocardial Infarction ([place]) <Tanisha White - Last Filed: 05/02/23 12:01> General Exam Limitations: no limitations <Tanisha White - Last Filed: 05/02/23 12:01> <Gabriel Mcrae - Last Filed: 05/02/23 22:29> - General Exam Comments Initial Comments: Visual Physical Exam Vital signs reviewed General: Well-appearing, nontoxic, no acute distress. Head: Normocephalic, atraumatic Eyes: PERRLA, EOMI ENT: Airway patent Chest: Nonlabored breathing Skin: No visual rash, normal skin tone Neuro: Alert and oriented 3 Musculoskeletal: No gross abnormalities (Tanisha White) General: Appears in no acute distress. HEAD: Normal with no signs of head trauma. EYES: PERRLA, EOMI, conjunctiva normal, no discharge. ENT: Hearing grossly intact, normal oropharynx. RESPIRATORY: Clear breath sounds bilaterally. No wheezes, rales, or rhonchi. C/V: Regular rate and rhythm. S1 and S2 auscultated, no edema, peripheral pulses 2+ and intact throughout ABD: Abd is soft, nontender, nondistended EXT: Normal range of motion, no obvious deformity SKIN: No rashes or lesions observed on exposed skin. NEURO: Alert and oriented x 4. (Gabriel Mcrae) Course Vital Signs 05/02/23 05/02/23 05/02/23 11:47 16:03 16:07 Temperature 98.3 F 98.7 F Pulse Rate 90 84 Pulse Rate [ 84 Casing Builder ] Respiratory 18 18 Rate Blood Pressure 121/85 137/81 Blood Pressure [Right Arm Sitting] Blood Pressure [Right Arm Standing] Blood Pressure [Supine] O2 Sat by Pulse 98 99 Oximetry 05/02/23 05/02/23 16:08 18:36 Temperature 98.7 F Pulse Rate 71 Pulse Rate [ 85 Casing Builder ] Respiratory 20 18 Rate Blood Pressure 164/108 Blood Pressure 129/87 [Right Arm Sitting] Blood Pressure 118/83 [Right Arm Standing] Blood Pressure 130/81 [Supine] O2 Sat by Pulse 97 98 Oximetry Chest Pain MDM <Tanisha White - Last Filed: 05/02/23 12:01> <Gabriel Mcrae - Last Filed: 05/02/23 22:29> - [facility] Visual Physical Exam Vital signs reviewed General: Well-appearing, nontoxic, no acute distress. Head: Normocephalic, atraumatic Eyes: PERRLA, EOMI ENT: Airway patent Chest: Nonlabored breathing Skin: No visual rash, normal skin tone Neuro: Alert and oriented 3 Musculoskeletal: No gross abnormalities (Tanisha White) Was pt. sent in by a medical professional or institution (, PA, CALENDER WORKER HELPER, urgent care, hospital, or halfway...) When possible be specific @ -No Did you speak to anyone other than the patient for history (EMS, parent, family, police, friend...)? What history was obtained from this source @ -No Did you review nursing and triage notes (agree or disagree)? Why? @ -I reviewed and agree with nursing and triage notes Were old charts reviewed (outside hosp., previous admission, EMS record, old EKG, old radiological studies, urgent care reports/EKG's, halfway records)? Report findings @ -Old charts reviewed Differential Diagnosis (chest pain, altered mental status, abdominal pain women, abdominal pain men, vaginal bleeding, weakness, fever, dyspnea, syncope, headache, dizziness, GI bleed, back pain, seizure, CVA, palpatations, mental health, musculoskeletal)? @ -Differential Chest Pain: Stable Angina, Unstable Angina, STEMI, NSTEMI Aortic Dissection, Pneumothorax, Musculoskeletal, Esophageal Spasm GERD, Cholecystitis, Pancreatitis, Zoster, this is not meant to be an all-inclusive list. EKG interpreted by me (3pts min.). @ -As above X-rays interpreted by me (1pt min.). @ -Chest x-ray reveals no obvious acute cardio pulmonary process. CT interpreted by me (1pt min.). @ -None done U/S interpreted by me (1pt. min.). @ -None done What testing was considered but not performed or refused? (CT, X-rays, U/S, labs)? Why? @ -I offered to be tested which was declined What meds were considered but not given or refused? Why? @ -I offered nitro tablets which were declined. Patient did take Cialis 48 hours ago. Did you discuss the management of the patient with other professionals (professionals i.e. , PA, CALENDER WORKER HELPER, lab, RT, psych nurse, social media assistant, reexaminer, teacher, correctional security officer, field nurse case manager)? Give summary @ -I discussed with Dr. Templeton who accepted the admission. Was smoking cessation discussed for >3mins.? @ -No Was critical care preformed (if so, how long)? @ -No Were there social determinants of health that impacted care today? How? (Homelessness, low income, unemployed, alcoholism, drug addiction, transportation, low edu. Level, literacy, decrease access to med. care, usp, rehab)? @ -No Was there de-escalation of care discussed even if they declined (Discuss DNR or withdrawal of care, Hospice)? DNR status @ -No What co-morbidities impacted this encounter? (DM, HTN, Smoking, COPD, CAD, Cancer, CVA, ARF, Chemo, Hep., AIDS, mental health diagnosis, sleep apnea, morbid obesity)? @ -None Was patient admitted / discharged? Hospital course, mention meds given and route, prescriptions, significant lab abnormalities, going to OR and other pertinent info. @ -Based on the patient's presentation and physical exam, presents with chest pain with history of cardiac stents. Workup was started in triage however we will obtain a second troponin as well as screening d-dimer and Covid swap was offered but declined. Patient was in agreement this plan. Vital signs are within acceptable limits. He will be symptomatically treated with a GI cocktail and aspirin to begin. Repeat troponin undetectable. Patient is hypomagnesemic and will be replenished. D-dimer unremarkable. Repeat EKG shows no signs of acute ischemia. On reevaluation, patient is feeling improved. I did discuss admission when she was in agreement with. Patient's heart score is 4. Patient was in agreement this plan. Patient has artery received aspirin. Chest pain is improved but I will order morphine as needed. Patient was in agreement this plan. He is resting comfortably at this time. Discuss admission with Dr. Templeton who accepted the admit. Undiagnosed new problem with uncertain prognosis? @ -No Drug Therapy requiring intensive monitoring for toxicity (Heparin, Nitro, Insulin, Cardizem)? @ -No Were any procedures done? @ -No Diagnosis/symptom? @ -Chest pain Acute, or Chronic, or Acute on Chronic? @ -Acute Uncomplicated (without systemic symptoms) or Complicated (systemic symptoms)? @ -Complicated Side effects of treatment? @ -No Exacerbation, Progression, or Severe Exacerbation? @ -No Poses a threat to life or bodily function? How? (Chest pain, [place], [place], pneumonia, PE, COPD, DKA, ARF, appy, cholecystitis, CVA, Diverticulitis, Homicidal, Suicidal, threat to staff... and all critical care pts) @ -Potentially, yes (Gabriel Mcrae) Disposition <Tanisha White - Last Filed: 05/02/23 12:01> Time of Disposition: 17:30 <Gabriel Mcrae - Last Filed: 05/02/23 22:29> Clinical Impression: Chest pain Disposition: ADMITTED IP TO THIS HOSP Condition: Stable
[2023-05-02 12:33] LABS: Basophils # (A) 0.1 k/uL (0-0.2); Basophils % (A) 1 %; Eosinophils # (A) 0.1 k/uL (0-0.7); Eosinophils % (A) 1 %; HCT 42.9 % (39.0-53.0); HGB 14.8 gm/dL (13.0-17.5); Lymphocytes # (A) 2.4 k/uL (1.0-4.8); Lymphocytes % (A) 23 %; MCH 30.2 pg (25.0-35.0); MCHC 34.6 g/dL (31.0-37.0); MCV 87.2 fL (80.0-100.0); Mean Platelet Volume 7.6; Monocytes # (A) 0.7 k/uL (0-1.0); Monocytes % (A) 6 %; Neutrophils # (A) 6.8 k/uL (1.3-7.7); Neutrophils % (A) 67 %; Platelet Count 239 k/uL (150-450); RBC 4.92 m/uL (4.30-5.90); RDW 13.1 % (11.5-15.5); WBC 10.3 k/uL (3.8-10.6)
[2023-05-02 12:38] LABS: INR 0.9 (<1.2); Partial Thromboplastin Time 22.7 sec (22.0-30.0); Prothrombin Time 10.1 sec (10.0-12.5)
[2023-05-02 13:10] LABS: ALT 26 U/L (4-49); AST 26 U/L (17-59); African American GFR (CKD) >90 (>60 ml/min/1.73 sqM); Albumin 4.1 g/dL (3.5-5.0); Alkaline Phosphatase 123 U/L (38-126); Anion Gap 15 mmol/L; Blood Urea Nitrogen 16 mg/dL (9-20); Calcium 9.4 mg/dL (8.4-10.2); Carbon Dioxide 22 mmol/L (22-30); Chloride 99 mmol/L (98-107); Glucose 306 mg/dL (74-99); Magnesium 1.5 mg/dL (1.6-2.3); Non-African American GFR(CKD) >90 (>60 ml/min/1.73 sqM); Potassium 4.2 mmol/L (3.5-5.1); Sodium 136 mmol/L (137-145); Total Bilirubin 0.5 mg/dL (0.2-1.3); Total Protein 6.5 g/dL (6.3-8.2)
--- NOTE | 2023-05-02 14:20 | XR ---
EXAMINATION TYPE: XR chest 2V DATE OF EXAM: 05/02/2023 COMPARISON: Prior chest x-ray November 18, 2020 HISTORY: Chest pain TECHNIQUE: Frontal and lateral views of the chest are obtained. FINDINGS: There is no suspicious new focal air space opacity, pleural effusion, or pneumothorax seen . The cardiac silhouette size is stable and within normal limits. Dextroconvex scoliotic curvature c entered in the mid to lower thoracic spine is redemonstrated. IMPRESSION: No acute process.
[2023-05-02] MEDS ORDERED: SODIUM CHLORIDE 0.9% 1,000 ML IV STA (16:26)
[2023-05-02] MEDS ORDERED: MAG HYDROX/AL HYDROX/SIMETH 30 ML, HYOSCYAMINE ELIXIR 10 ML, LIDOCAINE 2% GLYDO JELLY 1... PO STA ×3 (16:26)
[2023-05-02] MEDS ORDERED: ASPIRIN 81 MG PO STA (16:26)
[2023-05-02] MEDS ORDERED: MAGNESIUM SULFATE-D5W PMX 1 GM in DEXTROSE/WATER 1 100ML.BAG IVPB ONE (17:49)
[2023-05-02] MEDS ORDERED: NALOXONE 0.4 MG/ML 1 ML VIAL IV PRN (17:54)
[2023-05-02] MEDS ORDERED: MORPHINE SULFATE 4 MG/ML SYRINGE IVP STA (17:57)
[2023-05-02] MEDS: MORPHINE SULFATE 4 MG/ML SYRINGE IV PRN (21:54)
[2023-05-03] MEDS: HEPARIN SODIUM,PORCINE 5,000 UNIT/ML 1 ML VIAL SQ SCH ×4 (00:53→23:28)
[2023-05-03 01:04] LABS: African American GFR (CKD) >90 (>60 ml/min/1.73 sqM); Anion Gap 12 mmol/L; Blood Urea Nitrogen 19 mg/dL (9-20); Calcium 8.8 mg/dL (8.4-10.2); Carbon Dioxide 23 mmol/L (22-30); Chloride 100 mmol/L (98-107); Glucose 311 mg/dL (74-99); Magnesium 1.7 mg/dL (1.6-2.3); Non-African American GFR(CKD) >90 (>60 ml/min/1.73 sqM); Potassium 4.3 mmol/L (3.5-5.1); Sodium 135 mmol/L (137-145)
[2023-05-03] MEDS: MORPHINE SULFATE 4 MG/ML SYRINGE IV PRN ×4 (02:37→20:05)
[2023-05-03] MEDS ORDERED: AMINOPHYLLINE 500 MG/20 ML VIAL IV PRN (08:38)
[2023-05-03] MEDS ORDERED: REGADENOSON 0.4 MG/5 ML SYRINGE IV PRN (08:38)
[2023-05-03] MEDS ORDERED: CAFFEINE CITRATE 60 MG/3 ML VIAL IV PRN (08:38)
[2023-05-03 08:40] LABS: Basophils # (A) 0.05 X 10*3/uL (0.00-0.10); Basophils % (A) 0.7 %; Eosinophils % (A) 1.3 %; HCT 37.3 % (39.6-50.0); HGB 12.4 g/dL (13.0-17.0); Lymphocytes % (A) 31.6 %; MCH 29.6 pg (27.0-32.0); MCHC 33.2 g/dL (32.0-37.0); Mean Platelet Volume 9.8 FL (9.5-12.2); Monocytes # (A) 0.57 X 10*3/uL (0.20-1.00); Monocytes % (A) 7.5 %; NRBC Per 100 WBC 0 X 10*3/uL (0.00-0.01); Neutrophils % (A) 57.8 %; Platelet Count 223 X 10*3/uL (140-440); RBC 4.19 X 10*6/uL (4.40-5.60); RDW 12.8 % (11.5-14.5)
[2023-05-03 08:45] LABS: BUN/Creat Ratio 28.14 Ratio (12.00-20.00); Blood Urea Nitrogen 19.7 mg/dL (9.0-27.0); Calcium 8.7 mg/dL (8.7-10.3); Carbon Dioxide 25.2 mmol/L (21.6-31.8); Chloride 103 mmol/L (96-109); Glucose 272 mg/dL (70-110); Potassium 4.3 mmol/L (3.5-5.5); Sodium 138 mmol/L (135-145)
[2023-05-03] MEDS: ASPIRIN 81 MG PO SCH (09:14)
[2023-05-03] MEDS: LOSARTAN 25 MG TAB PO SCH (09:14)
--- NOTE | 2023-05-03 09:58 | P.CRDCN ---
History of Present Illness History of present illness: HISTORY OF PRESENT ILLNESS: This is a 47-year-old male with a past medical history significant for hypertension, hyperlipidemia, diabetes, and coronary artery disease with previous multivessel PCI. Patient follows in the office with Dr. Galeano. We have been asked to see the patient in consultation for chest pain. Patient examined at the bedside. Patient presented to the hospital a chief complaint of chest discomfort. He states he has been having chest discomfort for the past 1-2 days. He states the pain is in the middle of his chest and also radiates to his back. He denied any shortness of breath. He states the pain feels similar to prior episodes when he required 17. 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 At the time of examination, the patient denies any chest pain or pressure. The patient did have an episode of type 2 heart block overnight while he was sleeping. He was asymptomatic. This morning he is maintaining sinus mechanism with heart rate in the 60s. * EKG reveals sinus mechanism with nonspecific ST-T wave changes * Chest xray negative for acute process * Laboratory data: Troponin negative 4. * Current home cardiac medications include Lipitor 40 mg at night, aspirin 325 mg daily, losartan 25 mg daily, metoprolol succinate 50 mg daily * Most recent echocardiogram obtained in September 2020 revealed ejection fraction 45 -50% with apical lateral LV wall hypokinesis, trace MR, and mild TR * Most recent stress test performed in October 2020 revealing mid to distal septal wall stress-induced ischemic changes. * Cardiac catheterization history: October 2020 with stenting of the PLV branch of the right coronary artery. Patent stent to the diagonal branch of the LAD. Patent stent in the mid LAD. The LAD proximal to the stented segment appears to have a long tubular lesion in the range of 50% that seems to be unchanged from previous images. Patent stent in the PDA branch of the RCA. REVIEW OF SYSTEMS: At the time of my exam: CONSTITUTIONAL: Denies fever or chills. HEENT: Denies blurred vision, vision changes, or eye pain. Denies hemoptysis CARDIOVASCULAR: Denies chest pain. Denies orthopnea. Denies PND. Denies palpitations RESPIRATORY: Denies shortness of breath. GASTROINTESTINAL: Denies abdominal pain. Denies nausea or vomiting. HEMATOLOGIC: Denies bleeding disorders. GENITOURINARY: Denies any blood in urine. SKIN: Denies pruitis. Denies rash. PHYSICAL EXAM: VITAL SIGNS: Reviewed. GENERAL: Well-developed in no acute distress. HEENT: Head is normocephalic. Pupils are equal, round. Sclerae anicteric. Mucous membranes of the mouth are moist. Neck supple. No JVD or thyromegaly LUNGS: Respirations even and unlabored. Lungs essentially clear to auscultation bilaterally. HEART: Regular rate and rhythm. S1 and S2 heard. ABDOMEN: Soft. Nondistended. Nontender. EXTREMITIES: Normal range of motion. No clubbing or cyanosis. Peripheral pulses intact. No lower extremity edema NEUROLOGIC: Awake and alert. Oriented x 3. ASSESSMENT: Chest pain, troponins negative 4 Intermittent second degree heart block; while sleeping Coronary artery disease with previous stenting of the PLV branch of RCA, PDA branch of RCA, mid LAD, and diagonal branch of LAD Hypertension Hyperlipidemia Diabetes Nicotine dependence PLAN: An acute coronary event has been ruled out Resume home cardiac medications Decrease aspirin to 81 mg daily Hold beta yuly. Continue telemetry monitoring Obtain 2-D echo to assess cardiac structure and function Patient to undergo Lexiscan stress test If abnormal, patient will undergo cardiac catheterization this afternoon with Dr. Galeano Further recommendations pending patient's course Nurse practitioner note has been reviewed by physician. Signing provider agrees with the documented findings, assessment, and plan of care. Past Medical History Past Medical History: Asthma, Diabetes Mellitus, GERD/Reflux, Hypertension, Myocardial Infarction (PR), Pneumonia, Sleep Apnea/CPAP/BIPAP Additional Past Medical History / Comment(s): 03-08-16 no cpap machine used, pancreatitis Last Myocardial Infarction Date:: History of Any Multi-Drug Resistant Organisms: None Reported Past Surgical History: Tonsillectomy Additional Past Surgical History / Comment(s): 03/08/16 heart cath stent to 1st diag Past Anesthesia/Blood Transfusion Reactions: No Reported Reaction Past Psychological History: No Psychological Hx Reported Additional Psychological History / Comment(s): high function autistic Smoking Status: Former smoker Past Alcohol Use History: Occasional Additional Past Alcohol Use History / Comment(s): quit in 2009 Past Drug Use History: Marijuana Additional Drug Use History / Comment(s): daily use - Past Family History Mother Family Medical History: Fibromyalgia, Osteoarthritis (OA) Additional Family Medical History / Comment(s): djd/hip replacement, von willebrand's, brother and sister had von willebrand's to. Father Family Medical History: CVA/TIA, Hyperlipidemia, Hypertension, Myocardial Infarction (PR) Additional Family Medical History / Comment(s): boarderline diabetic Brother(s) Family Medical History: Myocardial Infarction (PR) Medications and Allergies Home Medications Medication Instructions Recorded Confirmed Type Atorvastatin [Lipitor] 40 mg PO HS 02/06/23 05/02/23 History Omeprazole [PriLOSEC] 40 mg PO DAILY 02/06/23 05/02/23 History Ibuprofen [Motrin] 600 mg PO Q6HR PRN #40 tab 02/07/23 05/02/23 Rx Aspirin EC [Ecotrin] 325 mg PO DAILY 05/02/23 05/02/23 History Cefdinir [Omnicef] 300 mg PO Q12HR 05/02/23 05/02/23 History Losartan [Cozaar] 25 mg PO DAILY 05/02/23 05/02/23 History Metoprolol Succinate (ER) [Toprol 50 mg PO DAILY 05/02/23 05/02/23 History Xl] Semaglutide [Ozempic] 0.5 mg SQ TH 05/02/23 05/02/23 History tadalafiL 20 mg PO DAILY PRN 05/02/23 05/02/23 History Allergies Allergy/AdvReac Type Severity Reaction Status Date / Time No Known Allergies Allergy Verified 05/02/23 20:13 Physical Exam Vitals: Vital Signs Temp Pulse Pulse Resp BP BP BP 05/03/23 07:00 97.7 F 73 16 05/03/23 02:30 76 16 05/03/23 01:31 98.2 F 76 16 131/81 05/02/23 20:32 98.1 F 68 16 152/85 05/02/23 18:36 71 18 164/108 05/02/23 16:08 98.7 F 85 20 129/87 05/02/23 16:07 98.7 F 84 18 137/81 05/02/23 16:03 84 05/02/23 11:47 98.3 F 90 18 121/85 BP BP BP Pulse Ox 05/03/23 07:00 153/94 98 05/03/23 02:30 05/03/23 01:31 95 05/02/23 20:32 96 05/02/23 18:36 98 05/02/23 16:08 118/83 130/81 97 05/02/23 16:07 99 05/02/23 16:03 05/02/23 11:47 98 Intake and Output 05/02/23 05/03/23 05/03/23 22:59 06:59 14:59 Other: Voiding Method Toilet # Voids 1 1 Weight 95.254 kg Results 05/03/23 05:47 05/03/23 05:47 Cardiac Enzymes 05/02/23 05/02/23 05/02/23 Range/Units 00:20 12:13 12:13 AST 26 (17-59) U/L Troponin I <0.012 <0.012 (0.000-0.034) ng/mL 05/02/23 05/02/23 Range/Units 17:05 19:51 AST (17-59) U/L Troponin I <0.012 <0.012 (0.000-0.034) ng/mL Coagulation 05/02/23 Range/Units 12:13 PT 10.1 (10.0-12.5) sec APTT 22.7 (22.0-30.0) sec CBC 05/02/23 05/03/23 Range/Units 12:13 05:47 WBC 10.3 7.60 (3.8-10.6) k/uL RBC 4.92 4.19 L (4.30-5.90) m/uL Hgb 14.8 12.4 L (13.0-17.5) gm/dL Hct 42.9 37.3 L (39.0-53.0) % Plt Count 239 223 (150-450) k/uL Comprehensive Metabolic Panel 05/02/23 05/02/23 05/03/23 Range/Units 00:20 12:13 05:47 Sodium 135 L 136 L 138 (137-145) mmol/L Potassium 4.3 4.2 4.3 (3.5-5.1) mmol/L Chloride 100 99 103 (98-107) mmol/L Carbon Dioxide 23 22 25.2 (22-30) mmol/L BUN 19 16 19.7 (9-20) mg/dL Creatinine 0.72 0.59 L 0.7 (0.66-1.25) mg/dL Glucose 311 H 306 H 272 H (74-99) mg/dL Calcium 8.8 9.4 8.7 (8.4-10.2) mg/dL AST 26 (17-59) U/L ALT 26 (4-49) U/L Alkaline Phosphatase 123 (38-126) U/L Total Protein 6.5 (6.3-8.2) g/dL Albumin 4.1 (3.5-5.0) g/dL Current Medications Generic Name Dose Route Start Last Admin Trade Name Freq PRN Reason Stop Dose Admin Aminophylline 100 mg 05/03/23 08:38 Aminophylline 500 Mg/20 Ml Vial IV 05/03/23 12:39 ONCE PRN Patient Response Aspirin 81 mg 05/03/23 09:00 05/03/23 09:14 Aspirin 81 Mg PO 81 mg DAILY JOSE Administration Atorvastatin Calcium 40 mg 05/03/23 21:00 Atorvastatin 40 Mg Tab PO HS JOSE Caffeine Citrate 60 mg 05/03/23 08:38 Caffeine Citrate 60 Mg/3 Ml Vial IV 05/03/23 12:39 ONCE PRN Patient Response Heparin Sodium (Porcine) 5,000 unit 05/03/23 00:00 05/03/23 09:13 Heparin Sodium,Porcine 5,000 Unit/Ml 1 Ml Vial SQ Not Given Q8HR [facility] Losartan Potassium 25 mg 05/03/23 09:00 05/03/23 09:14 Losartan 25 Mg Tab PO 25 mg DAILY JOSE Administration Morphine Sulfate 4 mg 05/02/23 17:54 05/03/23 06:42 Morphine Sulfate 4 Mg/Ml Syringe IV 4 mg Q4HR PRN Administration Severe Pain (Scale 7 to 10) Naloxone HCl 0.2 mg 05/02/23 17:54 Naloxone 0.4 Mg/Ml 1 Ml Vial IV Q2M PRN Opioid Reversal Regadenoson 0.4 mg 05/03/23 08:38 Regadenoson 0.4 Mg/5 Ml Syringe IV 05/03/23 12:39 ONCE PRN Per Protocol Intake and Output 05/02/23 05/03/23 05/03/23 22:59 06:59 14:59 Other: Voiding Method Toilet # Voids 1 1 Weight 95.254 kg 05/03/23 05:47 05/03/23 05:47
--- NOTE | 2023-05-03 11:53 | NM ---
EXAMINATION TYPE: NM stress lexiscan cardiolite DATE OF EXAM: 05/03/2023 COMPARISON: Prior nuclear medicine stress test November 15, 2020 CLINICAL INDICATION: Male, 47 years old with history of CP; history of hypertension, diabetes, and hy percholesterolemia along with prior angioplasty x4. TECHNIQUE: After the intravenous administration of 9.52 mCi Tc 99m Sestamibi - Cardiolite resting SP ECT images acquired 45 minutes post injection. The patient received 0.4mg Lexiscan, 25.5 mCi Tc 99m Sestamibi - Stress images obtained [address] injection FINDINGS: Review of stress and rest SPECT images demonstrates best seen on the Polar map focal diminished radio tracer uptake in the anterolateral wall towards the apex on stress images versus rest images and larg er defect anteroseptal wall and apical level on stress images versus rest images in which acute ische halle cannot be excluded. Slightly Abnormal enlarged end diastolic volume at near 140 cc. Gated analysi s shows overall left ventricular ejection fraction estimated at 45%, diminished from the normal range . IMPRESSION: Possible areas of acute reversible ischemia. Follow-up direct catheter angiogram should b e considered.
[2023-05-03] MEDS ORDERED: NITROGLYCERIN SL TABS 0.4 MG TAB SUBLINGUAL PRN (11:55)
[2023-05-03] MEDS ORDERED: ASPIRIN 325 MG TAB PO STA (11:55)
[2023-05-03] MEDS ORDERED: ALPRAZolam 0.5 MG TAB PO PRN (11:55)
[2023-05-03] MEDS ORDERED: ALPRAZolam 0.25 MG TAB PO PRN (11:55)
[2023-05-03] MEDS ORDERED: ATORVASTATIN 80 MG TAB PO STA (11:55)
[2023-05-03] MEDS: SODIUM CHLORIDE 0.9% 1,000 ML in EMPTY BAG 1 BAG IV SCH ×2 (12:05→23:28)
--- NOTE | 2023-05-03 12:15 | CA ---
Transthoracic Echo Report Name: Dov Mims Age: 47 Gender: M : 1975 Exam Date: 05/03/2023 10:33 Exam Location: [place] [facility] Ht (in): 73 Wt (lb): 210 Ordering Physician: Lisbet Odell Attending/Referring Phys: [id number], Jose R Buncher Machine Samantha De Paz [facility] Procedure CPT: Indications: LV function Cardiac Hx: Technical Quality: Fair Contrast 1: Total Dose (mL): Contrast 2: Total Dose (mL): MEASUREMENTS (Male / Female) Normal Values 2D ECHO LV Diastolic Diameter PLAX 5.3 cm 4.2 - 5.9 / 3.9 - 5.3 cm LV Systolic Diameter PLAX 3.7 cm IVS Diastolic Thickness 0.8 cm 0.6 - 1.0 / 0.6 - 0.9 cm LVPW Diastolic Thickness 0.9 cm 0.6 - 1.0 / 0.6 - 0.9 cm LV Relative Wall Thickness 0.3 LVOT Diameter 2.0 cm Ascending Aorta Diameter 3.4 cm M-MODE Aortic Root Diameter MM 3.1 cm LA Systolic Diameter MM 4.2 cm LA Ao Ratio MM 1.4 AV Cusp Separation MM 1.8 cm DOPPLER AV Peak Velocity 159.9 cm/s AV Peak Gradient 10.2 mmHg AV Mean Velocity 119.4 cm/s AV Mean Gradient 6.1 mmHg AV Velocity Time Integral 34.2 cm LVOT Peak Velocity 129.0 cm/s LVOT Peak Gradient 6.7 mmHg LVOT Velocity Time Integral 27.9 cm LVOT Stroke Volume 88.7 cm??? LVOT Stroke Volume Index 40.4 ml/m??? LVOT Cardiac Index 2945.0 cm???/min???m??? AV Area Cont Eq vti 2.6 cm??? AV Area Cont Eq pk 2.6 cm??? Mitral E Point Velocity 70.2 cm/s Mitral A Point Velocity 63.0 cm/s Mitral E to A Ratio 1.1 MV Deceleration Time 211.9 ms LV E' Lateral Velocity 14.4 cm/s Mitral E to LV E' Lateral Ratio 4.9 LV E' Septal Velocity 9.3 cm/s Mitral E to LV E' Septal Ratio 7.5 TR Peak Velocity 181.0 cm/s TR Peak Gradient 13.1 mmHg Right Atrial Pressure 8.0 mmHg Pulmonary Artery Systolic Pressu 21.1 mmHg Right Ventricular Systolic Press 21.1 mmHg FINDINGS Left Ventricle Left ventricular wall thickness normal. Left ventricular cavity size normal. Normal left ventricular systolic function with no obvious regional wall motion abnormalities. Left ventricular ejection fraction is estimated at 55-60%. Right Ventricle Mildly dilated right ventricular dilatation. Right Atrium Normal right atrial size. Left Atrium Mild left atrial dilatation. Mitral Valve Mitral valve thickened. Trace mitral regurgitation. Aortic Valve Mildy calcified trileaflet aortic valve. No aortic regurgitation. Tricuspid Valve Structurally normal tricuspid valve. Trace tricuspid regurgitation. Pulmonic Valve Structurally normal pulmonic valve. Trace pulmonic regurgitation. Pericardium No pericardial effusion. Aorta Normal size aortic root and proximal ascending aorta. CONCLUSIONS LV size and systolic function mild concentric LVH mild left atrial enlargement mild mitral and tricuspid regurgitation no pericardial effusion Previewed by: Dr. Era Swartz MD (Electronically Signed) Final Date: 03 May 2023 12:14
[2023-05-03] MEDS ORDERED: IBUPROFEN 600 MG TAB PO PRN (15:02)
[2023-05-03] MEDS ORDERED: DEXTROSE 50% SYRINGE 50 ML IVP PRN ×2 (15:03)
[2023-05-03] MEDS ORDERED: ACETAMINOPHEN TAB 325 MG TAB PO PRN (15:05)
[2023-05-03] MEDS ORDERED: ONDANSETRON 4 MG/2 ML VIAL IVP PRN (15:05)
--- NOTE | 2023-05-03 15:07 | P.HPIM ---
History of Present Illness H&P Date: 05/03/23 This is a pleasant 47-year-old male who presented to the emergency department with chest pain that has been radiating to his back that have been ongoing and progressively getting worse over the last 2 days. Patient also experiencing some mild shortness of breath on occasion and feeling like he had increased acid reflux. Patient reports that he felt this way on previous myocardial infarction when he had stenting. Patient follows with Dr. Galeano in the outpatient setting as well as Dr. Velazquez with a past medical history of asthma, diabetes mellitus, GERD, hypertension, myocardial infarctions with stenting, pneumonia, sleep apnea, is a former smoker and used to use marijuana and occasionally drinks alcohol and denies any other illicit drug use. On admission, chest x-ray showed no acute process, labs reviewed showing a normal CBC, d-dimer was normal at 0.24, sodium was normal at 135 with a potassium of 4.3 and creatinine was 0.72, magnesium was 1.7 and troponins 4 have been negative. EKG showed sinus rhythm. Patient was admitted under observation for cardiology to evaluate. Etiology evaluated the patient early this morning recommending 2-D echo which showed normal LV systolic function with no obvious regional wall motion abnormalities and EF was 55-60% with a mildly dilated right ventricular dilatation with mild mitral and tricuspid regurgitation present with no pericardial effusion. Stress test was done this morning and was suggestive of possible areas of acute reversible ischemia with an estimated EF of 45%. Cardiology planning on cardiac catheterization. In patient's extensive cardiac history and positive findings patient will require inpatient hospitalization. Review Of Systems: Constitutional: No fever, no chills, no night sweats. No weight change. No wea kness, fatigue or lethargy. No daytime sleepiness. EENT: No headache. No blurred vision or double vision, no loss of vision. No loss of Hearing, no ringing in the ears, no dizziness. No nasal drainage or congestion. No epistaxis. No sore throat. Lungs: No shortness of breath, cough, no sputum production. No wheezing. Cardiovascular: Port of chest pain and pressure like sensation, no lower e xtremity edema. No palpitations. No paroxysmal nocturnal dyspnea. No orthopnea. No lightheadedness or dizziness. No syncopal episodes. Abdominal: No abdominal pain. No nausea, vomiting. No diarrhea. No constipation. No bloody or tarry stools.. No loss of appetite. Genitourinary: No dysuria, increased frequency, urgency. No urinary retention. Musculoskeletal: No myalgias. No muscle weakness, no gait dysfunction, no frequent falls. No back pain. No neck pain. Integumentary: No wounds, no lesions. No rash or pruritus. No unusual bruising. No change in hair or nails. Neurologic: No aphasia. No facial droop. No change in mentation. No head injury. No headache. No paralysis. No paresthesia. Psychiatric: No depression. No anxiety. No mood swings. Endocrine: No abnormal blood sugars. No weight change. No excessive sweating or thirst. No cold intolerance. PHYSICAL EXAMINATION: GENERAL: The patient is alert and oriented x4, Well developed, well nourished. HEENT: Pupils are round and equally reacting to light. EOMI. no scleral icterus. No conjunctival pallor. Normocephalic, atraumatic. No pharyngeal erythema. No thyromegaly. CARDIOVASCULAR: S1 and S2 muffled PULMONARY: diminished breath sounds bilaterally otherwise clear to auscultation. with no wheezing or rhonchi noted. ABDOMEN: soft. Nontender on exam. non-distended, normoactive bowel sounds. No palpable organomegaly. MUSCULOSKELETAL: No joint swelling or deformity. EXTREMITIES: No cyanosis, clubbing, or pedal edema. NEUROLOGICAL: Gross neurological examination did not reveal any focal deficits. SKIN: No rashes. Assessment: Chest pain, troponins 4 negative ACS ruled out Abnormal stress test today showing possible areas of acute reversible ischemia and will be undergoing cardiac catheterization later today or tomorrow History of asthma, not an exacerbation Diabetes mellitus history flank GERD hypertension History of previous myocardial infarctions with stenting History of sleep apnea and does not use a CPAP former smoker GI prophylaxis DVT prophylaxis Full code Plan: Recommend to continue with current medications and management with cardiology following. Patient was admitted under observation and initially and continued to be symptomatic underwent stress test which was showing possible concerns of reducible ischemia and recommending cardiac catheterization which is being planned for today or tomorrow morning per cardiology Home medications reviewed and resumed as appropriate Continue telemetry monitoring Continue monitoring Accu-Cheks before meals and at bedtime and will use sliding scale as patient normally takes ozempic one subcutaneous injection weekly Will await cardiac catheterization report and clearance from cardiology to discuss discharge planning The impression and plan of care has been dictated by Tess Wyatt, nurse practitioner as directed. Dr. Zully MD I have performed a history and examination and MDM of this patient, discussed the same with the dictator, and agree with the dictator's assessment and plan as written ,documented as a scribe. Based on total visit time, I have performed more than 50% of the visit. Any additional findings or plans will be noted. Past Medical History Past Medical History: Asthma, Diabetes Mellitus, GERD/Reflux, Hypertension, Myocardial Infarction (MN), Pneumonia, Sleep Apnea/CPAP/BIPAP Additional Past Medical History / Comment(s): 03-08-16 no cpap machine used, pancreatitis Last Myocardial Infarction Date:: History of Any Multi-Drug Resistant Organisms: None Reported Past Surgical History: Tonsillectomy Additional Past Surgical History / Comment(s): 03/08/16 heart cath stent to 1st diag Past Anesthesia/Blood Transfusion Reactions: No Reported Reaction Past Psychological History: No Psychological Hx Reported Additional Psychological History / Comment(s): high function autistic Smoking Status: Former smoker Past Alcohol Use History: Occasional Additional Past Alcohol Use History / Comment(s): quit in 2009 Past Drug Use History: Marijuana Additional Drug Use History / Comment(s): daily use - Past Family History Mother Family Medical History: Fibromyalgia, Osteoarthritis (OA) Additional Family Medical History / Comment(s): djd/hip replacement, von willebrand's, brother and sister had von willebrand's to. Father Family Medical History: CVA/TIA, Hyperlipidemia, Hypertension, Myocardial Infarction (MN) Additional Family Medical History / Comment(s): boarderline diabetic Brother(s) Family Medical History: Myocardial Infarction (MN) Medications and Allergies Home Medications Medication Instructions Recorded Confirmed Type Atorvastatin [Lipitor] 40 mg PO HS 02/06/23 05/02/23 History Omeprazole [PriLOSEC] 40 mg PO DAILY 02/06/23 05/02/23 History Ibuprofen [Motrin] 600 mg PO Q6HR PRN #40 tab 02/07/23 05/02/23 Rx Aspirin EC [Ecotrin] 325 mg PO DAILY 05/02/23 05/02/23 History Cefdinir [Omnicef] 300 mg PO Q12HR 05/02/23 05/02/23 History Losartan [Cozaar] 25 mg PO DAILY 05/02/23 05/02/23 History Metoprolol Succinate (ER) [Toprol 50 mg PO DAILY 05/02/23 05/02/23 History Xl] Semaglutide [Ozempic] 0.5 mg SQ TH 05/02/23 05/02/23 History tadalafiL 20 mg PO DAILY PRN 05/02/23 05/02/23 History Allergies Allergy/AdvReac Type Severity Reaction Status Date / Time No Known Allergies Allergy Verified 05/02/23 20:13 Physical Exam Vitals: Vital Signs Temp Pulse Pulse Resp BP BP BP 05/03/23 07:00 97.7 F 73 16 05/03/23 02:30 76 16 05/03/23 01:31 98.2 F 76 16 131/81 05/02/23 20:32 98.1 F 68 16 152/85 05/02/23 18:36 71 18 164/108 05/02/23 16:08 98.7 F 85 20 129/87 05/02/23 16:07 98.7 F 84 18 137/81 05/02/23 16:03 84 05/02/23 11:47 98.3 F 90 18 121/85 BP BP BP Pulse Ox 05/03/23 07:00 153/94 98 05/03/23 02:30 05/03/23 01:31 95 05/02/23 20:32 96 05/02/23 18:36 98 05/02/23 16:08 118/83 130/81 97 05/02/23 16:07 99 05/02/23 16:03 05/02/23 11:47 98 Intake and Output 05/02/23 05/03/23 05/03/23 22:59 06:59 14:59 Other: Voiding Method Toilet # Voids 1 1 Weight 95.254 kg Results CBC & Chem 7: 05/03/23 05:47 05/03/23 05:47 Labs: Abnormal Lab Results - Last 24 Hours (Table) 05/02/23 05/02/23 05/03/23 Range/Units 00:20 12:13 05:47 RBC 4.19 L (4.40-5.60) X 10*6/uL Hgb 12.4 L (13.0-17.0) g/dL Hct 37.3 L (39.6-50.0) % Immature Gran # 0.08 H (0.00-0.04) X 10*3/uL Sodium 135 L 136 L (137-145) mmol/L Creatinine 0.59 L (0.66-1.25) mg/dL BUN/Creatinine Ratio (12.00-20.00) Ratio Glucose 311 H 306 H (74-99) mg/dL Magnesium 1.5 L (1.6-2.3) mg/dL 05/03/23 Range/Units 05:47 RBC (4.40-5.60) X 10*6/uL Hgb (13.0-17.0) g/dL Hct (39.6-50.0) % Immature Gran # (0.00-0.04) X 10*3/uL Sodium (137-145) mmol/L Creatinine (0.66-1.25) mg/dL BUN/Creatinine Ratio 28.14 H (12.00-20.00) Ratio Glucose 272 H (74-99) mg/dL Magnesium (1.6-2.3) mg/dL Thrombosis Risk Factor Assmnt - Choose All That Apply Each Factor Represents 1 point: Acute MN, Age 41-60 years, Obesity (BMI >25) Other Risk Factors: No Other congenital or acquired thrombophilia - If yes, enter type in comment: No Thrombosis Risk Factor Assessment Total Risk Factor Score: 3 Thrombosis Risk Factor Assessment Level: Moderate Risk
[2023-05-03] MEDS ORDERED: VERAPAMIL 2.5 MG/ML 2 ML AMP ONE (16:47)
[2023-05-03] MEDS ORDERED: LIDOCAINE 1% INJ 10MG/ML (20 ML MDV) ONE (16:47)
[2023-05-03] MEDS ORDERED: IV FLUID CONTINUATION 1,000 ML IV ONE (16:50)
[2023-05-03] MEDS: fentaNYL (PF) 50 MCG/ML 2 ML AMP IVP ONE ×2 (17:00→17:25)
[2023-05-03] MEDS ORDERED: MIDAZOLAM 2 MG/2 ML VIAL IVP ONE ×2 (17:00→17:25)
[2023-05-03] MEDS ORDERED: fentaNYL (PF) 50 MCG/ML 2 ML AMP ONE (17:07)
[2023-05-03] MEDS ORDERED: LIDOCAINE 1% INJ 10MG/ML (20 ML MDV) SQ ONE (17:28)
[2023-05-03] MEDS ORDERED: IOPAMIDOL-370 100ML BTL INJ ONE (17:48)
[2023-05-03] MEDS ORDERED: RX INFO: IV CONTRAST WAS GIVEN 1 EACH MISC MISCELLANE PRN (17:57)
[2023-05-03] MEDS ORDERED: SODIUM CHLORIDE 0.9% 1,000 ML IV SCH (18:00)
--- NOTE | 2023-05-03 18:03 | P.PCN ---
Date of Procedure: 05/03/23 Operative Findings: CARDIAC CATHETERIZATION PERFORMING PHYSICIAN: Mitesh Galeano MD, RPVI PROCEDURE PERFORMED: 1. Selective right and left coronary angiogram 2. Left heart catheterization 3. Ultrasound-guided access of the right common femoral artery and the right common femoral artery angiogram INDICATION: Chest discomfort in this 47-year-old gentleman was known CAD and prior stenting of the LAD underwent myocardial perfusion imaging stress showed apical/anterior ischemia COMPLICATION: None APPROACH: Right common femoral artery LEVEL OF SEDATION: Moderate with sedation in length of 22 minutes PROCEDURE DESCRIPTION: After obtaining an informed consent, the patient was brought to cardiac collaborative teacher. Local anesthesia was performed using lidocaine subcutaneously. The right common femoral artery was cannulated using Seldinger technique under ultrasound guidance and the guidewire passed easily, following that we advanced a 6 Slovak sheath dilator assembly, the wire and dilator were removed and sheath was flushed. Selective right and left coronary angiogram using a 6-Slovak JR4 and JL catheters. Following that we did left heart catheterization using 6-Slovak pigtail catheter. The procedure was completed there was no complication. SELECTIVE CORONARY ANGIOGRAM: The right coronary artery: Large caliber vessel ansa dominant vessel. The RCA itself has mild disease only. Distally bifurcates into the PDA branch which is a stented with mild to moderate in-stent restenosis and PLV branch which appeared to be normal Left main: Has mild disease only. Bifurcates into an LCx and LAD The left circumflex: Large caliber vessel nondominant vessel. The LCx proximally is normal. Gives rises into an OM1 which has severe disease. Also gives rises into OM to which is small to medium caliber vessel with severe disease in the proximal portion. The circumflex distally has a critical lesion as well but become a small-caliber vessel in the AV groove The left anterior descending artery: The proximal LAD appeared to be angiographically normal. LAD gives rise into a large diagonal branch which is stented with severe in-stent restenosis. The LAD itself is a stented was also severe in-stent restenosis a long area of disease noted. HEMODYNAMICS: The LVEDP was 15 mmHg was no significant gradient across aortic valve CONCLUSION: 1. Severe in-stent restenosis involving the mid LAD and the first diagonal branch of the LAD which is a large caliber vessel 2. Severe de wayne disease involving the first and second obtuse marginal branch of the left circumflex and distal left circumflex 3. Intermediate in-stent restenosis involving the PDA of RCA POSTPROCEDURE MANAGEMENT: Evaluation for coronary artery that was grafting. The patient is not going to be discharged home today.
[2023-05-03] MEDS: INSULIN ASPART (NovoLOG) 100 UNIT/ML VIAL SQ SCH ×2 (19:26→21:00)
[2023-05-03] MEDS: ATORVASTATIN 40 MG TAB PO SCH (20:05)
[2023-05-03 20:43] LABS: Glucose,Whole Blood 216 mg/dL (70-110)
[2023-05-03] MEDS: PANTOPRAZOLE 40 MG TABLET PO SCH (23:27)
[2023-05-04] MEDS: MORPHINE SULFATE 4 MG/ML SYRINGE IV PRN ×2 (01:30→06:25)
[2023-05-04 06:19] LABS: Glucose,Whole Blood 241 mg/dL (70-110)
[2023-05-04] MEDS: INSULIN ASPART (NovoLOG) 100 UNIT/ML VIAL SQ SCH ×6 (06:26→20:54)
[2023-05-04] MEDS: PANTOPRAZOLE 40 MG TABLET PO SCH (06:26)
[2023-05-04] MEDS ORDERED: HEPARIN SODIUM,PORCINE 10,000 UNIT in SODIUM CHLORIDE 0.9% 1,000 ML IRRIGATION PRN (07:00)
[2023-05-04] MEDS ORDERED: HEPARIN SODIUM,PORCINE (1 ML) 2,500 UNIT in SODIUM CHLORIDE 0.9% 250 ML IRRIGATION PRN (07:00)
[2023-05-04] MEDS ORDERED: PANTOPRAZOLE 40 MG TABLET PO SCH (07:30)
[2023-05-04] MEDS: HEPARIN SODIUM,PORCINE 5,000 UNIT/ML 1 ML VIAL SQ SCH ×3 (09:01→23:07)
[2023-05-04] MEDS: LOSARTAN 25 MG TAB PO SCH (09:02)
[2023-05-04] MEDS: ASPIRIN 81 MG PO SCH (09:02)
[2023-05-04 09:04] LABS: Basophils % (A) 1 %; Eosinophils # (A) 0.1 k/uL (0-0.7); Eosinophils % (A) 2 %; HCT 43.3 % (39.0-53.0); HGB 15.3 gm/dL (13.0-17.5); Lymphocytes # (A) 1.8 k/uL (1.0-4.8); Lymphocytes % (A) 22 %; MCH 31.7 pg (25.0-35.0); MCHC 35.4 g/dL (31.0-37.0); MCV 89.5 fL (80.0-100.0); Mean Platelet Volume 7.1; Monocytes # (A) 0.4 k/uL (0-1.0); Monocytes % (A) 5 %; Neutrophils # (A) 5.7 k/uL (1.3-7.7); Neutrophils % (A) 70 %; Platelet Count 236 k/uL (150-450); RBC 4.84 m/uL (4.30-5.90); RDW 12.9 % (11.5-15.5); WBC 8.2 k/uL (3.8-10.6)
[2023-05-04 09:15] LABS: INR 0.9 (<1.2); Partial Thromboplastin Time 22.9 sec (22.0-30.0); Prothrombin Time 10.5 sec (10.0-12.5)
[2023-05-04 09:30] LABS: ALT 67 U/L (4-49); AST 85 U/L (17-59); African American GFR (CKD) >90 (>60 ml/min/1.73 sqM); Alkaline Phosphatase 131 U/L (38-126); Anion Gap 11 mmol/L; Blood Urea Nitrogen 15 mg/dL (9-20); Calcium 9.6 mg/dL (8.4-10.2); Carbon Dioxide 27 mmol/L (22-30); Chloride 99 mmol/L (98-107); Glucose 204 mg/dL (74-99); Non-African American GFR(CKD) >90 (>60 ml/min/1.73 sqM); Sodium 137 mmol/L (137-145); Total Bilirubin 0.6 mg/dL (0.2-1.3); Total Protein 6.4 g/dL (6.3-8.2)
[2023-05-04 09:33] LABS: African American GFR (CKD) >90 (>60 ml/min/1.73 sqM); Anion Gap 14 mmol/L; Blood Urea Nitrogen 15 mg/dL (9-20); Calcium 9.5 mg/dL (8.4-10.2); Carbon Dioxide 26 mmol/L (22-30); Chloride 98 mmol/L (98-107); Glucose 204 mg/dL (74-99); Magnesium 1.6 mg/dL (1.6-2.3); Non-African American GFR(CKD) >90 (>60 ml/min/1.73 sqM); Sodium 138 mmol/L (137-145)
--- NOTE | 2023-05-04 10:14 | P.GSCN ---
History of Present Illness Consult date: 05/04/23 Reason for Consult: Multivessel coronary artery disease, evaluation for myocardial revascularization Requesting physician: Mitesh Galeano History of present illness: This is a 47-year-old gentleman who follows on an outpatient basis with Dr. Greg Velazquez first primary care and with Dr. Mitesh Galeano for his cardiology care. He has a past medical history significant for previous myocardial infarction in 2000, coronary artery disease with previous PCI, hypertension, hyperlipidemia, diabetes mellitus type 2, history of pancreatitis, high functioning autism, obstructive sleep apnea with no home CPAP use, history of nicotine dependence with smoking 6-8 months ago, occasional EtOH use, current ongoing marijuana use smokes about one joint per day and family history of early onset coronary artery disease with his father and one of his brothers being diagnosed in their late 40s with coronary artery disease. The patient presented to the emergency department here at [facility] on 05/02/2023 with complaints of chest pain which was radiating to his back, associated with shortness of breath, diaphoresis and nausea. He denies any vomiting. The patient also reports that he did have a headache for a few days prior. He denies any cough, visual disturbances, lightheadedness, fever, chills, hemoptysis, hematemesis, abdominal pain, presyncope or syncope. The patient reports that on 05/01/2023 he took a Cialis and after taking the Cialis he started to having the above mentioned symptoms. The patient also reports he has been having these symptoms off and on for the past blood months, with the pain coming on during rest and due to the pain being persistent this episode presented to the emergency department for further evaluation. A 12-lead EKG was completed which showed normal sinus rhythm with nonspecific STT wave changes, laboratory results showed serial troponins to be less than 0.012, a chest x-ray was completed which showed no acute cardiopulmonary process, and due to the patient's presenting symptoms and history of coronary artery disease a consult was placed to cardiology. For fu rther evaluation a transthoracic 2-D echocardiogram was completed which demonstrated a left ventricular cavity to be normal in size, normal left ventricular systolic function with an ejection fraction estimated at 55-60%, trace mitral valve regurgitation, no aortic valve regurgitation, trace tricuspid valve regurgitation, trace pulmonic valve regurgitation, no pericardial effusion and a normal size aortic root and proximal ascending aorta. The patient was recommended to undergo a Lexiscan stress test which was completed yesterday 05/03/2023 and demonstrated possible areas of acute reversible ischemia and due to the findings on the stress test he was recommended to undergo a cardiac catheterization. The cardiac catheterization showed severe in-stent restenosis involving the mid left anterior descending coronary artery and the first diagonal branch of the LAD, severe and oval disease involving the first and second obtuse marginal branch of the left circumflex and distal left circumflex, and intermediate in-stent restenosis involving the PDA of the RCA. Subsequently, due to the patient's presenting symptoms, and findings on the cardiac catheterization a consult was placed to Dr. Nicholas Lancaster from cardiothoracic surgery for further evaluation and treatment recommendations including myocardial revascularization surgery. It was reported this morning that post heart cath the patient had a telemetry rhythm consistent second-degree type II heart block, and this morning on evaluation his remote telemetry wish showing normal sinus rhythm heart rate 72 BPM. Review of Systems A 14 point review of systems was completed and was negative except as mentioned in the HPI. Past Medical History Past Medical History: Asthma, Coronary Artery Disease (CAD) (Multiple PCI in the past), Chest Pain / Angina, Diabetes Mellitus, GERD/Reflux, Hyperlipidemia, Hypertension, Myocardial Infarction ([place]), Pneumonia, Sleep Apnea/CPAP/BIPAP Additional Past Medical History / Comment(s): no cpap machine used, pancreatitis Last Myocardial Infarction Date:: 11/18/2020 History of Any Multi-Drug Resistant Organisms: None Reported Past Surgical History: Cholecystectomy, Hernia Repair, Tonsillectomy Additional Past Surgical History / Comment(s): 03/08/16 heart cath stent to 1st diag and 11/18/2020 stent to the PLV. Stents to Mid LAD, 1st Diag, PLV and PDA Past Anesthesia/Blood Transfusion Reactions: No Reported Reaction Past Psychological History: No Psychological Hx Reported Additional Psychological History / Comment(s): high functioning autistic Smoking Status: Former smoker Past Alcohol Use History: Occasional Additional Past Alcohol Use History / Comment(s): quit in 6-8 months ago August- September 2022 Past Drug Use History: Marijuana Additional Drug Use History / Comment(s): daily use, smokes one joint per day - Past Family History Mother Family Medical History: Fibromyalgia, Osteoarthritis (OA) Additional Family Medical History / Comment(s): djd/hip replacement, von willebrand's, brother and sister had von willebrand's to. Father Family Medical History: CVA/TIA, Hyperlipidemia, Hypertension, Myocardial Infarction (IN) Additional Family Medical History / Comment(s): boarderline diabetic Brother(s) Family Medical History: Myocardial Infarction (IN) Medications and Allergies Home Medications Medication Instructions Recorded Confirmed Type Atorvastatin [Lipitor] 40 mg PO HS 02/06/23 05/02/23 History Omeprazole [PriLOSEC] 40 mg PO DAILY 02/06/23 05/02/23 History Ibuprofen [Motrin] 600 mg PO Q6HR PRN #40 tab 02/07/23 05/02/23 Rx Aspirin EC [Ecotrin] 325 mg PO DAILY 05/02/23 05/02/23 History Cefdinir [Omnicef] 300 mg PO Q12HR 05/02/23 05/02/23 History Losartan [Cozaar] 25 mg PO DAILY 05/02/23 05/02/23 History Metoprolol Succinate (ER) [Toprol 50 mg PO DAILY 05/02/23 05/02/23 History XL] Semaglutide [Ozempic] 0.5 mg SQ TH 05/02/23 05/02/23 History tadalafiL 20 mg PO DAILY PRN 05/02/23 05/02/23 History Allergies Allergy/AdvReac Type Severity Reaction Status Date / Time No Known Allergies Allergy Verified 05/02/23 20:13 Surgical - Exam Vital Signs Temp Pulse Resp BP Pulse Ox 98.3 F 90 18 121/85 98 05/02/23 11:47 05/02/23 11:47 05/02/23 11:47 05/02/23 11:47 05/02/23 11:47 - General well developed, well nourished, no distress, no pain, chronically ill - Eyes PERRL, normal ocular movement, no pale, no icteric - ENT normal pinna, normal nares, normal mucosa, no hearing loss, no congestion - Neck Neck is supple, no lymphadenopathy. no masses, no bruits, trachea midline, no venous distension - Respiratory Lungs are essentially clear throughout. No wheezing, rhonchi or crackles. Respirations are symmetrical and nonlabored. - Cardiovascular Regular rhythm and rate. S1 and S2 present, negative for S3, gallop or murmur. - Abdomen Abdomen is soft, nontender and nondistended. Active bowel sounds present in all 4 abdominal quadrants. No guarding or rigidity. No organomegaly appreciated. - Genitourinary Deferred - Rectum Deferred - Integumentary Skin is warm and dry. No clubbing or cyanosis is present. no rash, no growths, no abnormal pigmentation - Neurologic No focal deficits. normal coordination, normal sensation - Musculoskeletal Moves all 4 extremities with equal strength bilateral normal gait, normal posture - Psychiatric oriented to time, oriented to person, oriented to place, speech is normal, memory intact Results - Labs 05/04/23 08:32 05/03/23 05:47 Abnormal Lab Results - Last 24 Hours (Table) 05/03/23 05/04/23 Range/Units 20:41 06:18 POC Glucose (mg/dL) 216 H 241 H (70-110) mg/dL - Imaging Chest x-ray: report reviewed, image reviewed Assessment and Plan Assessment: Multivessel coronary artery disease History of myocardial infarction in 2020 History of coronary artery disease with previous PCI Abnormal stress test Hypertension Hyperlipidemia Elevated liver enzymes, AST 85, ALT 67 Diabetes mellitus type 2 Obstructive sleep apnea with no home CPAP use History of tobacco abuse, quit smoking 6-8 months ago Daily marijuana use, smokes one joint per day GERD Plan: The patient was seen and examined at his bedside on the third floor cardiac stepdown unit, the patient's girlfriend is present at his bedside. His chart and diagnostics were reviewed. His case was discussed in detail with Dr. Nicholas Lancaster from cardiothoracic surgery. Preoperative testing and preoperative teaching has been initiated. The usual course of myocardial revascularization surgery has been discussed with the patient. A 5 m walk test was completed with the patient, time 1: 2.33 seconds, time 2: 2.40 seconds, time 3: 2.51 seconds. Patient tolerated the walk test well. Continue maximize medical management with aspirin, statin and beta yuly. Medical management other comorbidities per primary care service. Once the patient's preoperative testing has been o btained and STS risk score will be calculated in discussed with the patient. More recommendations to follow based on patient's clinical course and has his preoperative testing has been obtained. Thank you Dr. Galeano for this consult and we'll look for to working with you in the care of this patient. I have personally seen and examined the patient, performed the documentation and the assessment and plan as written. 30 minutes spent on the visit . Jose Morrow NP-Mary Time with Patient: Greater than 30
--- NOTE | 2023-05-04 10:16 | US ---
EXAMINATION TYPE: US carotid duplex BILAT DATE OF EXAM: 05/04/2023 COMPARISON: NONE CLINICAL INDICATION: Male, 47 years old with history of Pre-Op Cardiac Surgery TECHNIQUE: Carotid duplex ultrasound examination. Indirect Doppler criteria was utilized. FINDINGS: EXAM MEASUREMENTS: RIGHT: Peak Systolic Velocity (PSV) cm/sec ----- Right CCA: 76.7 ----- Right ICA: 122 ----- Right ECA: 92.2 ICA/CCA ratio: 1.6 RIGHT: End Diastole cm/sec ----- Right CCA: 18.8 ----- Right ICA: 47.5 ----- Right ECA: 13.0 LEFT: Peak Systolic Velocity (PSV) cm/sec ----- Left CCA: 84.3 ----- Left ICA: 98.7 ----- Left ECA: 157 ICA/CCA ratio: 1.2 LEFT: End Diastole cm/sec ----- Left CCA: 18.5 ----- Left ICA: 43.6 ----- Left ECA: 16.4 VERTEBRALS (direction of flow): Right Vertebral: Antegrade Left Vertebral: Antegrade Rhythm: Normal CAREER DEVELOPMENT ENGINEER NOTES: No significant stenosis seen IMPRESSION: No hemodynamically significant internal carotid artery stenosis on either side. Criteria for Assigning % of Stenosis / Diameter reduction (Estimation based on the indirect measurements of the internal carotid artery velocities (ICA PSV). 1. Normal (no stenosis)=ICA PSV < 125 cm/s: ratio < 2.0: ICA EDV<40 cm/s. 2. Less than 50% stenosis=ICA PSV < 125 cm/s: ratio < 2.0: ICA EDV<40 cm/s. 3. 50 to 69% stenosis=ICA PSV of 125 to 230 cm/s: ration 2.0 ? 4.0: ICA EDV 40-100 cm/s. 4. Greater than 70% stenosis to near occlusion= ICA PSV > 230 cm/s: ratio > 4.0: ICA EDV > 100 cm/s. 5. Near occlusion= ICA PSV velocities may be low or undetectable: variable ratio and ICA EDV. 6. Total occlusion=unable to detect flow.
--- NOTE | 2023-05-04 10:34 | US ---
EXAMINATION TYPE: US arterial LE single level DATE OF EXAM: 05/04/2023 10:05 AM CLINICAL INDICATION: Male, 47 years old with history of Ankle Brachial Index (SHAY) ; SHAY for Pre-OP C ABG Doppler Waveforms: Right: Multiphasic Left: Right Brachial Pressure: 164 Left Brachial Pressure: 155 Ankle-Brachial Indices: Right: 1.0 Left: 1.1 IMPRESSION: Ankle-brachial indices within normal limits.
--- NOTE | 2023-05-04 10:34 | US ---
EXAMINATION TYPE: US vein mapping BILAT DATE OF EXAM: 05/04/2023 9:34 AM COMPARISON: NONE CLINICAL INDICATION: Male, 47 years old with history of PreOp Cardiac Surgery; Pre-OP CABG SIDE PERFORMED: Bilateral TECHNIQUE: Lower extremity saphenous vein is examined and measured utilizing real time linear array sonography. DUPLEX FINDINGS: Greater Saphenous: Color flow seen Measurements in mm: Right Greater Saphenous: Groin: 6.5 x 6.9 mm High Thigh: 5.0 x 5.0 mm Mid Thigh: 3.8 x 3.6 mm Above Knee: 3.9 x 4.4 mm Knee: 4.1 x 4.7 mm Below Knee: 3.2 x 3.5 mm Mid Calf: 3.7 x 3.5 mm At Ankle: 2.9 x 3.4 mm Left Greater Saphenous: Groin: 6.0 x 6.0 mm High Thigh: 3.7 x 3.7 mm Mid Thigh: 3.6 x 4.1 mm Above Knee: 3.2 x 3.8 mm Knee: 3.6 x 3.7 mm Below Knee: 3.1 x 3.2 mm Mid Calf: 3.2 x 3.2 mm At Ankle: 2.7 x 2.7 mm IMPRESSION: 1. Bilateral GSV measurements listed above. 2. Performing surgeon to determine viability as conduit.
--- NOTE | 2023-05-04 10:35 | US ---
EXAMINATION TYPE: Pre-Operative Non-Invasive Evaluation of the hand for Potential Radial Artery Marylou , Measurements only DATE OF EXAM: 05/04/2023 9:34 AM CLINICAL INDICATION: Male, 47 years old with history of Pre-Op Cardiac Surgery; Pre-OP CABG SIDE PERFORMED: Bilateral TECHNIQUE: Radial artery is measured utilizing real time linear array sonography. Dominant hand: Right Duplex Findings: Radial Artery: Color flow seen Measurements in mm, transverse view: Right Radial: Proximal: 2.7 x 2.6 mm Mid: 1.4 x 1.6 mm Distal: 1.6 x 2.0 mm Left Radial: Proximal: 2.4 x 2.8 mm Mid: 2.1 x 2.2 mm Distal: 1.8 x 2.1 mm IMPRESSION: 1. Bilateral Radial artery measurements listed above. 2. Performing surgeon to determine viability as conduit.
[2023-05-04] MEDS: HYDROcodone/APAP 5-325MG 1 EACH TAB PO PRN ×2 (10:49→20:53)
[2023-05-04] MEDS: INSULIN DETEMIR (LEVEMIR) 100 UNIT/ML SYR SQ SCH (10:50)
[2023-05-04 11:22] LABS: Glucose,Whole Blood 223 mg/dL (70-110)
[2023-05-04 13:55] LABS: Chol/HDL Ratio 3.86 Ratio; LDL Cholesterol,Calculated 54.9 mg/dL (0.0-131.0)
--- NOTE | 2023-05-04 14:14 | P.PN ---
Subjective Progress Note Date: 05/04/23 The patient is a 47-year-old male who follows in the office with Dr. Valadez. He presented to the hospital with intermittent chest pains. He underwent repeat coronary angiogram yesterday with Dr. Valadez that found in stent restenosis of the mid LAD, first diagonal branch, and RCA. He has been referred to CV surgery for evaluation, expecting quadruple bypass. At the time of my examination the patient states he is not currently having any chest pain or shortness of breath. He states he is quite anxious about needing to undergo open heart surgery. Extensive conversation with the patient and the patient's regarding his progression of coronary artery disease despite good treatment. We discussed the importance of smoking cessation as well as diabetes control. GENERAL: Well-appearing, well-nourished and in no acute distress. NECK: Supple without JVD or thyromegaly. LUNGS: Breath sounds clear to auscultation bilaterally. Respiration equal and unlabored. No wheezes, rales or rhonchi. HEART: Regular rate and rhythm without murmurs, rubs or gallops. S1 and S2 heard. EXTREMITIES: Normal range of motion, no edema. No clubbing or cyanosis. Peripheral pulses intact and strong. TELEMETRY: Sinus rhythm overnight IMPRESSION: Chest discomfort Coronary artery disease, multivessel In-stent restenosis of mid LAD, first diagonal branch, and RCA Hypertension Hyperlipidemia Diabetes, uncontrolled, A1c 12 Current smoker Intermittent second-degree heart block while sleeping PLAN: Patient is in the process of being evaluated by CV surgery for quadruple bypass Continue supportive treatment Further recommendations to be based on clinical course I am dictating on behalf of Dr Lyle Munguia's history/physical and assessment/plan. Objective - Vital Signs Vital signs: Vital Signs Temp 98.5 F 05/04/23 04:00 Pulse 76 05/04/23 10:52 Resp 16 05/04/23 10:52 BP 170/83 05/04/23 10:52 Pulse Ox 97 05/04/23 10:52 FiO2 Intake & Output 05/03/23 05/04/23 05/04/23 18:59 06:59 18:59 Intake Total 150 236 Output Total 450 Balance 150 -450 236 Intake: IV 150 Oral 236 Output: Urine 450 Other: Voiding Method Toilet Toilet # Voids 2 1 - Labs CBC & Chem 7: 05/04/23 08:32 05/04/23 08:32 Labs: Abnormal Lab Results - Last 24 Hours (Table) 05/03/23 05/04/23 05/04/23 Range/Units 20:41 06:18 08:32 Creatinine (0.66-1.25) mg/dL Glucose (74-99) mg/dL POC Glucose (mg/dL) 216 H 241 H (70-110) mg/dL Hemoglobin A1c 12.2 H (<=6.0) % AST (17-59) U/L ALT (4-49) U/L Alkaline Phosphatase (38-126) U/L Triglycerides (0.00-149.00) mg/dL VLDL Cholesterol, Calc (5.00-40.00) mg/dL HDL Cholesterol (40.00-60.00) mg/dL 05/04/23 05/04/23 05/04/23 Range/Units 08:32 08:32 11:22 Creatinine 0.59 L 0.60 L (0.66-1.25) mg/dL Glucose 204 H 204 H (74-99) mg/dL POC Glucose (mg/dL) 223 H (70-110) mg/dL Hemoglobin A1c (<=6.0) % AST 85 H (17-59) U/L ALT 67 H (4-49) U/L Alkaline Phosphatase 131 H (38-126) U/L Triglycerides 218.00 H (0.00-149.00) mg/dL VLDL Cholesterol, Calc 43.60 H (5.00-40.00) mg/dL HDL Cholesterol 34.50 L (40.00-60.00) mg/dL
[2023-05-04 15:12] LABS: Hepatitis A Antibody IgM Nonreactive; Hepatitis B Core IgM Nonreactive; Hepatitis B Surface Antigen Nonreactive; Hepatitis C IgG Antibody Nonreactive
[2023-05-04] MEDS: SODIUM CHLORIDE 0.9% 1,000 ML in EMPTY BAG 1 BAG IV SCH ×2 (15:21→20:46)
[2023-05-04 16:18] LABS: Glucose,Whole Blood 243 mg/dL (70-110)
[2023-05-04 17:36] LABS: Appearance,Urine Cloudy (Clear); Bilirubin,Urine Negative (Negative); Blood,Urine Negative (Negative); Color,Urine Yellow; Glucose,Urine (UA) 3+ (Negative); Ketones,Urine Negative (Negative); Leukocyte Esterase,Urine Negative (Negative); Mucus,Urine Moderate /hpf; Nitrite,Urine Negative (Negative); Protein,Urine 1+ (Negative); RBC,Urine 1 /hpf (0-5); Specific Gravity,Urine 1.015 (1.001-1.035); Squamous Epithelial Cell,Urine 3 /hpf (0-4); Urobilinogen,Urine <2.0 mg/dL (<2.0); WBC,Urine 11 /hpf (0-5)
[2023-05-04 19:58] LABS: Glucose,Whole Blood 286 mg/dL (70-110)
[2023-05-04] MEDS: ATORVASTATIN 40 MG TAB PO SCH (20:54)
[2023-05-04] MEDS ORDERED: MUPIROCIN 2% OINT 22 GM TUBE NASAL SCH (21:00)
[2023-05-05 05:57] LABS: Glucose,Whole Blood 194 mg/dL (70-110)
[2023-05-05] MEDS: SODIUM CHLORIDE 0.9% 1,000 ML in EMPTY BAG 1 BAG IV SCH ×2 (06:03→20:55)
[2023-05-05] MEDS: INSULIN DETEMIR (LEVEMIR) 100 UNIT/ML SYR SQ SCH (06:07)
[2023-05-05] MEDS: INSULIN ASPART (NovoLOG) 100 UNIT/ML VIAL SQ SCH ×7 (06:07→21:02)
[2023-05-05] MEDS: HYDROcodone/APAP 5-325MG 1 EACH TAB PO PRN ×3 (06:07→21:01)
[2023-05-05] MEDS: PANTOPRAZOLE 40 MG TABLET PO SCH (06:08)
[2023-05-05] MEDS: HEPARIN SODIUM,PORCINE 5,000 UNIT/ML 1 ML VIAL SQ SCH ×3 (08:20→23:23)
[2023-05-05] MEDS: LOSARTAN 25 MG TAB PO SCH (08:24)
[2023-05-05] MEDS: ASPIRIN 81 MG PO SCH (08:24)
--- NOTE | 2023-05-05 08:51 | P.PN ---
Subjective Progress Note Date: 05/04/23 This is a pleasant 47-year-old male who presented to the emergency department with chest pain that has been radiating to his back that have been ongoing and progressively getting worse over the last 2 days. Patient also experiencing some mild shortness of breath on occasion and feeling like he had increased acid reflux. Patient reports that he felt this way on previous myocardial infarction when he had stenting. Patient follows with Dr. Galeano in the outpatient setting as well as Dr. Velazquez with a past medical history of asthma, diabetes mellitus, GERD, hypertension, myocardial infarctions with stenting, pneumonia, sleep apnea, is a former smoker and used to use marijuana and occasionally drinks a lcohol and denies any other illicit drug use. On admission, chest x-ray showed no acute process, labs reviewed showing a normal CBC, d-dimer was normal at 0.24, sodium was normal at 135 with a potassium of 4.3 and creatinine was 0.72, magnesium was 1.7 and troponins 4 have been negative. EKG showed sinus rhythm. Patient was admitted under observation for cardiology to evaluate. Etiology evaluated the patient early this morning recommending 2-D echo which showed normal LV systolic function with no obvious regional wall motion abnormalities and EF was 55-60% with a mildly dilated right ventricular dilatation with mild mitral and tricuspid regurgitation present with no pericardial effusion. Stress test was done this morning and was suggestive of possible areas of acute reversible ischemia with an estimated EF of 45%. Cardiology planning on cardiac catheterization. In patient's extensive cardiac history and positive findings patient will require inpatient hospitalization. 05/04/2023 Patient is evaluated today resting in bed family at bedside. Does have some intermittent chest discomfort but improved since admission. He is being worked up for 4 vessel coronary bypass. Cardiac catheterization revealed severe in stent restenosis involving the mid LAD and the first diagonal branch of the LAD which is a large caliber vessel. Severe de wayne disease involving the first and second obtuse marginal branch of the left circumflex and distal ostial circumflex. Intermediate in stent restenosis involving the PDA of RCA. Patient has underwent carotid Doppler showed no stenotic and stenosis. Lower extremity ultrasound reveals normal SHAY. He is found to have a hemoglobin A1c of 12.2 and is currently on a combination of sliding scale insulin was scheduled in [facility] which will be increased. Review of Systems Constitutional: Denied any fatigue denied any fever. Cardio vascular: denied any chest pain, palpitations Gastrointestinal: denied any nausea, vomiting, diarrhea Pulmonary: Denied any shortness of breath cough Neurologic denied any new focal deficits All inpatient medications were reviewed and appropriate changes in these medications as dictated in the interval history and assessment and plan. PHYSICAL EXAMINATION: GENERAL: The patient is alert and oriented x4, Well developed, well nourished. HEENT: Pupils are round and equally reacting to light. EOMI. no scleral icterus. No conjunctival pallor. Normocephalic, atraumatic. No pharyngeal erythema. No thyromegaly. CARDIOVASCULAR: S1 and S2 muffled PULMONARY: diminished breath sounds bilaterally otherwise clear to auscultation. with no wheezing or rhonchi noted. ABDOMEN: soft. Nontender on exam. non-distended, normoactive bowel sounds. No palpable organomegaly. MUSCULOSKELETAL: No joint swelling or deformity. EXTREMITIES: No cyanosis, clubbing, or pedal edema. NEUROLOGICAL: Gross neurological examination did not reveal any focal deficits. SKIN: No rashes. Assessment: Chest pain, troponins 4 negative ACS ruled out Abnormal stress test showing possible areas of acute reversible ischemia and cardiac cath reveling severe coronary artery disease In-stent restenosis of mid LAD, first diagonal branch, and RCA History of asthma, not an exacerbation Diabetes mellitus uncontrolled hemoglobin A1c 12.2 GERD hypertension History of previous myocardial infarctions with stenting History of sleep apnea and does not use a CPAP former smoker GI prophylaxis DVT prophylaxis Full code Plan: Recommend to continue with current medications and management with cardiology following. Patient found to severe CAD will undergo PCI vs. 4 vessel cabg undergoing work up. diabetes uncontrolled on combination of sliding scale scheduled insulin and will increase levemir for improved glycemic control. Home medications reviewed and resumed as appropriate Continue telemetry monitoring Continue monitoring Accu-Cheks before meals and at bedtime and will use sliding scale as patient normally takes ozempic one subcutaneous injection weekly The impression and plan of care has been dictated by Keri An nurse practitioner as directed. Dr. Zully MD I have performed a history and examination and MDM of this patient, discussed the same with the dictator, and agree with the dictator's assessment and plan as written ,documented as a scribe. Based on total visit time, I have performed more than 50% of the visit. Any additional findings or plans will be noted. Objective - Vital Signs Vital signs: Vital Signs Temp 98.5 F 05/04/23 04:00 Pulse 80 05/04/23 07:00 Resp 16 05/04/23 07:00 BP 155/92 05/04/23 07:00 Pulse Ox 96 05/04/23 07:00 FiO2 Intake & Output 05/03/23 05/04/23 05/04/23 18:59 06:59 18:59 Intake Total 150 Output Total 450 Balance 150 -450 Intake: IV 150 Output: Urine 450 Other: Voiding Method Toilet # Voids 2 1 - Labs CBC & Chem 7: 05/04/23 08:32 05/04/23 08:32 Labs: Abnormal Lab Results - Last 24 Hours (Table) 05/03/23 05/04/23 Range/Units 20:41 06:18 POC Glucose (mg/dL) 216 H 241 H (70-110) mg/dL Assessment and Plan Time with Patient: Less than 30
[2023-05-05 11:57] LABS: Glucose,Whole Blood 190 mg/dL (70-110)
[2023-05-05] MEDS: METOPROLOL TARTRATE 25 MG TAB PO SCH ×2 (12:33→21:02)
--- NOTE | 2023-05-05 13:14 | P.PN ---
Subjective Progress Note Date: 05/05/23 This is a pleasant 47-year-old male who presented to the emergency department with chest pain that has been radiating to his back that have been ongoing and progressively getting worse over the last 2 days. Patient also experiencing some mild shortness of breath on occasion and feeling like he had increased acid reflux. Patient reports that he felt this way on previous myocardial infarction when he had stenting. Patient follows with Dr. Galeano in the outpatient setting as well as Dr. Velazquez with a past medical history of asthma, diabetes mellitus, GERD, hypertension, myocardial infarctions with stenting, pneumonia, sleep apnea, is a former smoker and used to use marijuana and occasionally drinks a lcohol and denies any other illicit drug use. On admission, chest x-ray showed no acute process, labs reviewed showing a normal CBC, d-dimer was normal at 0.24, sodium was normal at 135 with a potassium of 4.3 and creatinine was 0.72, magnesium was 1.7 and troponins 4 have been negative. EKG showed sinus rhythm. Patient was admitted under observation for cardiology to evaluate. Etiology evaluated the patient early this morning recommending 2-D echo which showed normal LV systolic function with no obvious regional wall motion abnormalities and EF was 55-60% with a mildly dilated right ventricular dilatation with mild mitral and tricuspid regurgitation present with no pericardial effusion. Stress test was done this morning and was suggestive of possible areas of acute reversible ischemia with an estimated EF of 45%. Cardiology planning on cardiac catheterization. In patient's extensive cardiac history and positive findings patient will require inpatient hospitalization. 05/04/2023 Patient is evaluated today resting in bed family at bedside. Does have some intermittent chest discomfort but improved since admission. He is being worked up for 4 vessel coronary bypass. Cardiac catheterization revealed severe in stent restenosis involving the mid LAD and the first diagonal branch of the LAD which is a large caliber vessel. Severe de wayne disease involving the first and second obtuse marginal branch of the left circumflex and distal ostial circumflex. Intermediate in stent restenosis involving the PDA of RCA. Patient has underwent carotid Doppler showed no stenotic and stenosis. Lower extremity ultrasound reveals normal SHAY. He is found to have a hemoglobin A1c of 12.2 and is currently on a combination of sliding scale insulin was scheduled in [facility] which will be increased. 05/05/2023 Patient is evaluated today resting in bed in no complains of any shortness of breath or chest pain. He is tentatively scheduled to undergo percutaneous intervention for the severe coronary artery disease. No plans to undergo cardiac revascularization at this time. Discussed hemoglobin A1c with the patient and he has not been taking his Ozempic as prescribed and discussed. He will need additional management on discharge. Blood glucose in the 190s. Review of Systems Constitutional: Denied any fatigue denied any fever. Cardio vascular: denied any chest pain, palpitations Gastrointestinal: denied any nausea, vomiting, diarrhea Pulmonary: Denied any shortness of breath cough Neurologic denied any new focal deficits All inpatient medications were reviewed and appropriate changes in these medications as dictated in the interval history and assessment and plan. PHYSICAL EXAMINATION: GENERAL: The patient is alert and oriented x4, Well developed, well nourished. HEENT: Pupils are round and equally reacting to light. EOMI. no scleral icterus. No conjunctival pallor. Normocephalic, atraumatic. No pharyngeal erythema. No thyromegaly. CARDIOVASCULAR: S1 and S2 muffled PULMONARY: diminished breath sounds bilaterally otherwise clear to auscultation. with no wheezing or rhonchi noted. ABDOMEN: soft. Nontender on exam. non-distended, normoactive bowel sounds. No palpable organomegaly. MUSCULOSKELETAL: No joint swelling or deformity. EXTREMITIES: No cyanosis, clubbing, or pedal edema. NEUROLOGICAL: Gross neurological examination did not reveal any focal deficits. SKIN: No rashes. Assessment: Chest pain, troponins 4 negative ACS ruled out Abnormal stress test showing possible areas of acute reversible ischemia and cardiac cath reveling severe coronary artery disease In-stent restenosis of mid LAD, first diagonal branch, and RCA History of asthma, not an exacerbation Diabetes mellitus uncontrolled hemoglobin A1c 12.2 GERD hypertension History of previous myocardial infarctions with stenting History of sleep apnea and does not use a CPAP former smoker GI prophylaxis DVT prophylaxis Full code Plan: Recommend to continue with current medications and management with cardiology following. Patient found to severe CAD will undergo PCI no plans for CT intervention at this time. He is continued on aspirin, metoprolol, losartan and high dose statin. diabetes uncontrolled on combination of sliding scale scheduled insulin and will increase levemir for improved glycemic control. Home medications reviewed and resumed as appropriate Continue telemetry monitoring Continue monitoring Accu-Cheks before meals and at bedtime and will use sliding scale as patient normally takes ozempic one subcutaneous injection weekly The impression and plan of care has been dictated by Keri An nurse practitioner as directed. Dr. Zully MD I have performed a history and examination and MDM of this patient, discussed the same with the dictator, and agree with the dictator's assessment and plan as written ,documented as a scribe. Based on total visit time, I have performed more than 50% of the visit. Any additional findings or plans will be noted. Objective - Vital Signs Vital signs: Vital Signs Temp 98.2 F 05/05/23 08:00 Pulse 75 05/05/23 08:00 Resp 16 05/05/23 08:00 BP 135/87 05/05/23 08:00 Pulse Ox 96 05/05/23 08:00 FiO2 Intake & Output 05/04/23 05/05/23 05/05/23 18:59 06:59 18:59 Intake Total 348 540 Balance 348 540 Intake: Oral 348 540 Other: Voiding Method Toilet Toilet - Labs CBC & Chem 7: 05/04/23 08:32 05/04/23 08:32 Labs: Abnormal Lab Results - Last 24 Hours (Table) 05/04/23 05/04/23 05/04/23 Range/Units 08:32 08:32 08:32 Creatinine 0.59 L 0.60 L (0.66-1.25) mg/dL Glucose 204 H 204 H (74-99) mg/dL POC Glucose (mg/dL) (70-110) mg/dL Hemoglobin A1c 12.2 H (<=6.0) % AST 85 H (17-59) U/L ALT 67 H (4-49) U/L Alkaline Phosphatase 131 H (38-126) U/L Triglycerides 218.00 H (0.00-149.00) mg/dL VLDL Cholesterol, Calc 43.60 H (5.00-40.00) mg/dL HDL Cholesterol 34.50 L (40.00-60.00) mg/dL Urine Protein (Negative) Urine Glucose (UA) (Negative) Urine WBC (0-5) /hpf Urine Mucus (None) /hpf 05/04/23 05/04/23 05/04/23 Range/Units 11:22 16:14 17:09 Creatinine (0.66-1.25) mg/dL Glucose (74-99) mg/dL POC Glucose (mg/dL) 223 H 243 H (70-110) mg/dL Hemoglobin A1c (<=6.0) % AST (17-59) U/L ALT (4-49) U/L Alkaline Phosphatase (38-126) U/L Triglycerides (0.00-149.00) mg/dL VLDL Cholesterol, Calc (5.00-40.00) mg/dL HDL Cholesterol (40.00-60.00) mg/dL Urine Protein 1+ H (Negative) Urine Glucose (UA) 3+ H (Negative) Urine WBC 11 H (0-5) /hpf Urine Mucus Moderate H (None) /hpf 05/04/23 05/05/23 Range/Units 19:55 05:53 Creatinine (0.66-1.25) mg/dL Glucose (74-99) mg/dL POC Glucose (mg/dL) 286 H 194 H (70-110) mg/dL Hemoglobin A1c (<=6.0) % AST (17-59) U/L ALT (4-49) U/L Alkaline Phosphatase (38-126) U/L Triglycerides (0.00-149.00) mg/dL VLDL Cholesterol, Calc (5.00-40.00) mg/dL HDL Cholesterol (40.00-60.00) mg/dL Urine Protein (Negative) Urine Glucose (UA) (Negative) Urine WBC (0-5) /hpf Urine Mucus (None) /hpf Assessment and Plan Time with Patient: Less than 30
--- NOTE | 2023-05-05 13:39 | P.PN ---
Subjective Progress Note Date: 05/05/23 This is Jose R Almaraz NP, I'm dictating on behalf of Dr. Munguia's H&P and A&P. Patient was interviewed and examined. Patient is a pleasant 47-year-old male who presented to the hospital with intermittent chest pains. He underwent repeat coronary angiogram [address] Galeano found in-stent restenosis of the mid LAD, first diagonal branch, and RCA. CV surgery was consulted, and per their note after discussion with Dr. Galeano believe that the patient will be best served by repeat percutaneous revascul arization. Patient reports significant relief, as he was having severe anxiety with the prospect of having coronary artery bypass grafting. Today he reports that he is feeling okay. He does continue to appreciate some mild chest pain, but states that is improving. He does report that it does come on with movement. He does report that his shortness of breath has improved. GENERAL: Well-appearing, well-nourished and in no acute distress. NECK: Supple without JVD or thyromegaly. LUNGS: Breath sounds clear to auscultation bilaterally. Respiration equal and unlabored. No wheezes, rales or rhonchi. HEART: Regular rate and rhythm without murmurs, rubs or gallops. S1 and S2 heard. EXTREMITIES: Normal range of motion, no edema. No clubbing or cyanosis. Peripheral pulses intact and strong. VITALS: Temp 98.2, pulse 75, respirations 16, blood pressure 135/87, O2 saturation 96% on room air TELEMETRY: Normal sinus rhythm LABS: No new labs since 05/04/2023 IMPRESSION: 1. Multivessel coronary artery disease 2. Chest pain 3. In-stent restenosis of mid LAD, first diagonal branch, and RCA 4. Hypertension 5. Hyperlipidemia 6. Uncontrolled diabetes 7. Current smoker 8. Intermittent second degree heart block while sleeping PLAN: CV surgery feels the patient would be better served by coronary revascularization. Will increase metoprolol to 25 mg twice a day. Further recommendations based on patient's clinical course. Objective - Vital Signs Vital signs: Vital Signs Temp 98.2 F 05/05/23 08:00 Pulse 70 05/05/23 12:00 Resp 16 05/05/23 12:00 BP 141/92 05/05/23 12:00 Pulse Ox 95 05/05/23 12:00 FiO2 Intake & Output 05/04/23 05/05/23 05/05/23 18:59 06:59 18:59 Intake Total 348 540 480 Balance 348 540 480 Intake: Oral 348 540 480 Other: Voiding Method Toilet Toilet Toilet - Labs CBC & Chem 7: 05/04/23 08:32 05/04/23 08:32 Labs: Abnormal Lab Results - Last 24 Hours (Table) 05/04/23 05/04/23 05/04/23 Range/Units 08:32 08:32 16:14 POC Glucose (mg/dL) 243 H (70-110) mg/dL Hemoglobin A1c 12.2 H (<=6.0) % Triglycerides 218.00 H (0.00-149.00) mg/dL VLDL Cholesterol, Calc 43.60 H (5.00-40.00) mg/dL HDL Cholesterol 34.50 L (40.00-60.00) mg/dL Urine Protein (Negative) Urine Glucose (UA) (Negative) Urine WBC (0-5) /hpf Urine Mucus (None) /hpf 05/04/23 05/04/23 05/05/23 Range/Units 17:09 19:55 05:53 POC Glucose (mg/dL) 286 H 194 H (70-110) mg/dL Hemoglobin A1c (<=6.0) % Triglycerides (0.00-149.00) mg/dL VLDL Cholesterol, Calc (5.00-40.00) mg/dL HDL Cholesterol (40.00-60.00) mg/dL Urine Protein 1+ H (Negative) Urine Glucose (UA) 3+ H (Negative) Urine WBC 11 H (0-5) /hpf Urine Mucus Moderate H (None) /hpf 05/05/23 Range/Units 11:53 POC Glucose (mg/dL) 190 H (70-110) mg/dL Hemoglobin A1c (<=6.0) % Triglycerides (0.00-149.00) mg/dL VLDL Cholesterol, Calc (5.00-40.00) mg/dL HDL Cholesterol (40.00-60.00) mg/dL Urine Protein (Negative) Urine Glucose (UA) (Negative) Urine WBC (0-5) /hpf Urine Mucus (None) /hpf
[2023-05-05 16:49] LABS: Glucose,Whole Blood 387 mg/dL (70-110)
[2023-05-05 20:45] LABS: Glucose,Whole Blood 151 mg/dL (70-110)
[2023-05-05] MEDS: ATORVASTATIN 40 MG TAB PO SCH (21:02)
[2023-05-06] MEDS: SODIUM CHLORIDE 0.9% 1,000 ML in EMPTY BAG 1 BAG IV SCH ×5 (04:10→20:58)
[2023-05-06 06:02] LABS: Glucose,Whole Blood 221 mg/dL (70-110)
[2023-05-06] MEDS: PANTOPRAZOLE 40 MG TABLET PO SCH (06:11)
[2023-05-06] MEDS: INSULIN DETEMIR (LEVEMIR) 100 UNIT/ML SYR SQ SCH (06:15)
[2023-05-06] MEDS: INSULIN ASPART (NovoLOG) 100 UNIT/ML VIAL SQ SCH ×7 (06:16→20:57)
[2023-05-06] MEDS: HYDROcodone/APAP 5-325MG 1 EACH TAB PO PRN ×2 (06:16→20:56)
[2023-05-06] MEDS ORDERED: HEPARIN SODIUM,PORCINE (1 ML) 2,500 UNIT in SODIUM CHLORIDE 0.9% 250 ML IRRIGATION PRN (07:00)
[2023-05-06] MEDS ORDERED: HEPARIN SODIUM,PORCINE 10,000 UNIT in SODIUM CHLORIDE 0.9% 1,000 ML IRRIGATION PRN (07:00)
--- NOTE | 2023-05-06 07:25 | CA ---
Lexiscan Nuclear Stress Test Report Name: Dov Mims Exam Date: 05/03/2023 10:20 Exam Location: [place] Stress Ht (in): 73 Wt (lb): 210 BSA: 2.20 Ordering Phys: Lisbet Odell NP Referring Phys: Lynda Ly MD Technologist: Jerad Curran Age: 47 Gender: M : 1975 Procedure CPT: Indications: ICD-10 Codes: Patient History: CP, RANJANA, PALP, ANGINA, HTN, DM, CHOL, FAMILY HX, ND, CATH Medications: SEE CHART Meds past 24 hrs: Pretest Chest Pain: STRESS TEST Lexiscan Protocol Exercise Duration (min:sec): 02:[address] Depressions (mm): Angina Score: Chavez Score: Resting HR (bpm): 69 Peak HR (bpm): 94 Resting BP (mmHg): 164 / 97 Peak BP (mmHg): 146 / 80 MPHR: 171 Target HR: 145 % MPHR: 55 METS: 1.0 Total Dose: Peak Dose: Atropine: Double Product: 07333 BP Response: Stress Termination: Reached target heart rate Stress Symptoms: No chest pain or symptoms Stress Summary: ECG ANALYSIS Resting ECG: Stress ECG: CONCLUSIONS Baseline EKG revealed a normal sinus rhythm without significant ST-T changes. With Lexiscan administration the heart rate changed from 68-93 bpm and blood pressure changed from 164/97- 134/76. Patient was asymptomatic and EKG was unremarkable. By EKG criteria this is a unremarkable Lexiscan stress test. The nuclear scan results will be reported with radiologist Dr. Era Swartz MD (Electronically Signed) Final Date: 03 May 2023 11:05
[2023-05-06] MEDS: METOPROLOL TARTRATE 25 MG TAB PO SCH ×2 (09:38→20:57)
[2023-05-06] MEDS: LOSARTAN 25 MG TAB PO SCH (09:38)
[2023-05-06] MEDS: HEPARIN SODIUM,PORCINE 5,000 UNIT/ML 1 ML VIAL SQ SCH ×4 (09:38→23:53)
[2023-05-06] MEDS: ASPIRIN 81 MG PO SCH (09:38)
[2023-05-06] MEDS ORDERED: ATORVASTATIN 80 MG TAB PO STA (10:31)
[2023-05-06] MEDS ORDERED: NITROGLYCERIN SL TABS 0.4 MG TAB SUBLINGUAL PRN (10:31)
[2023-05-06] MEDS ORDERED: ASPIRIN 325 MG TAB PO STA (10:31)
[2023-05-06] MEDS ORDERED: ALPRAZolam 0.25 MG TAB PO PRN (10:31)
[2023-05-06] MEDS ORDERED: ALPRAZolam 0.5 MG TAB PO PRN (10:31)
[2023-05-06 11:32] VITALS: BMI 27.7
[2023-05-06 11:38] LABS: Glucose,Whole Blood 230 mg/dL (70-110)
--- NOTE | 2023-05-06 11:55 | P.PN ---
Subjective HISTORY OF PRESENT ILLNESS: This is a 47-year-old male with a past medical history significant for hypertension, hyperlipidemia, diabetes, and coronary artery disease with previous multivessel PCI. Patient follows in the office with Dr. Galeano. We have been asked to see the patient in consultation for chest pain. Patient examined at the bedside. Patient presented to the hospital a chief complaint of chest discomfort. He states he has been having chest discomfort for the past 1-2 days. He states the pain is in the middle of his chest and also radiates to his back. He denied any shortness of breath. He states the pain feels similar to prior episodes when he required 17. 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 At the time of examination, the patient denies any chest pain or pressure. The patient did have an episode of type 2 heart block overnight while he was sleeping. He was asymptomatic. This morning he is maintaining sinus mechanism with heart rate in the 60s. * EKG reveals sinus mechanism with nonspecific ST-T wave changes * Chest xray negative for acute process * Laboratory data: Troponin negative 4. * Current home cardiac medications include Lipitor 40 mg at night, aspirin 325 mg daily, losartan 25 mg daily, metoprolol succinate 50 mg daily * Most recent echocardiogram obtained in September 2020 revealed ejection fraction 45-50% with apical lateral LV wall hypokinesis, trace MR, and mild TR * Most recent stress test performed in October 2020 revealing mid to distal septal wall stress-induced ischemic changes. * Cardiac catheterization history: October 2020 with stenting of the PLV branch of the right coronary artery. Patent stent to the diagonal branch of the LAD. Patent stent in the mid LAD. The LAD proximal to the stented segment appears to have a long tubular lesion in the range of 50% that seems to be unchanged from previous images. Patent stent in the PDA branch of the RCA. 05/06/2023 Patient examined this morning at the bedside. He underwent cardiac catheterization on 05/03/2023 revealing severe in-stent restenosis involving the mid LAD and first diagonal branch of the LAD which is a large caliber vessel, severe disease involving the first and second obtuse marginal branch of the left circumflex and distal left circumflex and intermediate in-stent restenosis involving the PDA of the RCA. Patient was evaluated by cardiac thoracic surgery who recommended repeat for cutaneous revascularization rather than CABG. At the time of examination, patient denies any chest pain or pressure. He denies any shortness of breath. Vital signs are stable. PHYSICAL EXAM: VITAL SIGNS: Reviewed. GENERAL: Well-developed in no acute distress. HEENT: Head is normocephalic. Pupils are equal, round. Sclerae anicteric. Mucous membranes of the mouth are moist. Neck supple. No JVD or thyromegaly LUNGS: Respirations even and unlabored. Lungs essentially clear to auscultation bilaterally. HEART: Regular rate and rhythm. S1 and S2 heard. ABDOMEN: Soft. Nondistended. Nontender. EXTREMITIES: Normal range of motion. No clubbing or cyanosis. Peripheral pulses intact. No lower extremity edema NEUROLOGIC: Awake and alert. Oriented x 3. ASSESSMENT: Chest pain, troponins negative 4, status post abnormal stress test, status post cardiac catheterization as above Intermittent second degree heart block; while sleeping Coronary artery disease with previous stenting of the PLV branch of RCA, PDA branch of RCA, mid LAD, and diagonal branch of LAD Hypertension Hyperlipidemia Diabetes Nicotine dependence PLAN: Continue current cardiac medications NPO Patient will undergo cardiac catheterization today with PCI with Dr. Galeano Further recommendations pending patient's course Nurse practitioner note has been reviewed by physician. Signing provider agrees with the documented findings, assessment, and plan of care. Objective - Vital Signs Vital signs: Vital Signs Temp 98.2 F 05/06/23 08:00 Pulse 74 05/06/23 08:00 Resp 16 05/06/23 08:00 BP 128/82 05/06/23 08:00 Pulse Ox 95 05/06/23 08:00 FiO2 Intake & Output 05/05/23 05/06/23 05/06/23 18:59 06:59 18:59 Intake Total 1600 Balance 1600 Weight 95.254 kg Intake: Oral 1600 Other: Voiding Method Toilet Toilet Toilet - Labs CBC & Chem 7: 05/04/23 08:32 05/04/23 08:32 Labs: Abnormal Lab Results - Last 24 Hours (Table) 05/05/23 05/05/23 05/05/23 Range/Units 11:53 16:47 20:44 POC Glucose (mg/dL) 190 H 387 H 151 H (70-110) mg/dL 05/06/23 05/06/23 Range/Units 06:01 11:37 POC Glucose (mg/dL) 221 H 230 H (70-110) mg/dL
[2023-05-06 16:46] LABS: Glucose,Whole Blood 206 mg/dL (70-110)
--- NOTE | 2023-05-06 18:20 | P.PN ---
Subjective This is a pleasant 47-year-old male who presented to the emergency department with chest pain that has been radiating to his back that have been ongoing and progressively getting worse over the last 2 days. Patient also experiencing some mild shortness of breath on occasion and feeling like he had increased acid reflux. Patient reports that he felt this way on previous myocardial infarction when he had stenting. Patient follows with Dr. Galeano in the outpatient setting as well as Dr. Velazquez with a past medical history of asthma, diabetes mellitus, GERD, hypertension, myocardial infarctions with stenting, pneumonia, sleep apnea, is a former smoker and used to use marijuana and occasionally drinks alcohol and denies any other illicit drug use. On admission, chest x-ray showed no acute process, labs reviewed showing a normal CBC, d-dimer was normal at 0.24, sodium was normal at 135 with a potassium of 4.3 and creatinine was 0.72, magnesium was 1.7 and troponins 4 have been negative. EKG showed sinus rhythm. Patient was admitted under observation for cardiology to evaluate. Etiology evaluated the patient early this morning recommending 2-D echo which showed normal LV systolic function with no obvious regional wall motion abnormalities and EF was 55-60% with a mildly dilated right ventricular dilatation with mild mitral and tricuspid regurgitation present with no pericardial effusion. Stress test was done this morning and was suggestive of possible areas of acute reversible ischemia with an estimated EF of 45%. Cardiology planning on cardiac catheterization. In patient's extensive cardiac history and positive findings patient will require inpatient hospitalization. 05/04/2023 Patient is evaluated today resting in bed family at bedside. Does have some intermittent chest discomfort but improved since admission. He is being worked up for 4 vessel coronary bypass. Cardiac catheterization revealed severe in stent restenosis involving the mid LAD and the first diagonal branch of the LAD which is a large caliber vessel. Severe de wayne disease involving the first and second obtuse marginal branch of the left circumflex and distal ostial circumflex. Intermediate in stent restenosis involving the PDA of RCA. Patient has underwent carotid Doppler showed no stenotic and stenosis. Lower extremity ultrasound reveals normal SHAY. He is found to have a hemoglobin A1c of 12.2 and is currently on a combination of sliding scale insulin was scheduled in [facility] which will be increased. 05/05/2023 Patient is evaluated today resting in bed in no complains of any shortness of breath or chest pain. He is tentatively scheduled to undergo percutaneous intervention for the severe coronary artery disease. No plans to undergo cardiac revascularization at this time. Discussed hemoglobin A1c with the patient and he has not been taking his Ozempic as prescribed and discussed. He will need additional management on discharge. Blood glucose in the 190s. 05/06/2023 patient looks tired Still complains from chest pain/10 in severity No other new complaints He is hemodynamically stable, blood pressure low-normal. Patient informed his hemoglobin A1c is 12.2% with recommendation to continue with insulin treatment and he agrees. Currently on Levemir 15 units daily and increase NovoLog to 5 units with meals. Objective - Vital Signs Vital signs: Vital Signs Temp 98.2 F 05/06/23 08:00 Pulse 74 05/06/23 08:00 Resp 16 05/06/23 08:00 BP 128/82 05/06/23 08:00 Pulse Ox 95 05/06/23 08:00 FiO2 Intake & Output 05/05/23 05/06/23 05/06/23 18:59 06:59 18:59 Intake Total 1600 Balance 1600 Weight 95.254 kg Intake: Oral 1600 Other: Voiding Method Toilet Toilet Toilet - Exam GENERAL: The patient is alert and oriented x3, not in any acute distress. Well developed, well nourished. HEENT: Pupils are round and equally reacting to light. EOMI. No scleral icterus. No conjunctival pallor. Normocephalic, atraumatic. No pharyngeal erythema. No thyromegaly. CARDIOVASCULAR: S1 and S2 present. No murmurs, rubs, or gallops. PULMONARY: Chest is clear to auscultation, no wheezing , no crackles. ABDOMEN: Soft, nontender, nondistended, normoactive bowel sounds. No palpable organomegaly. MUSCULOSKELETAL: No joint swelling or deformity. EXTREMITIES: No cyanosis, clubbing, or pedal edema. NEUROLOGICAL: Gross neurological examination did not reveal any focal deficits. SKIN: No rashes. no petechiae. - Labs CBC & Chem 7: 05/04/23 08:32 05/04/23 08:32 Labs: Abnormal Lab Results - Last 24 Hours (Table) 05/05/23 05/05/23 05/06/23 Range/Units 16:47 20:44 06:01 POC Glucose (mg/dL) 387 H 151 H 221 H (70-110) mg/dL 05/06/23 Range/Units 11:37 POC Glucose (mg/dL) 230 H (70-110) mg/dL Assessment and Plan Assessment: Chest pain, troponins 4 negative ACS ruled out Abnormal stress test showing possible areas of acute reversible ischemia and cardiac cath reveling severe coronary artery disease In-stent restenosis of mid LAD, first diagonal branch, and RCA History of asthma, not an exacerbation Diabetes mellitus uncontrolled hemoglobin A1c 12.2 GERD hypertension History of previous myocardial infarctions with stenting History of sleep apnea and does not use a CPAP former smoker GI prophylaxis DVT prophylaxis Plan: Recommend to continue with current medications and management with cardiology following. Patient found to severe CAD will undergo PCI no plans for CT intervention at this time. He is continued on aspirin, metoprolol, losartan and high dose statin. diabetes uncontrolled on combination of sliding scale scheduled insulin and will increase levemir for improved glycemic control. Home medications reviewed and resumed as appropriate Continue telemetry monitoring Continue monitoring Accu-Cheks before meals and at bedtime and will use sliding scale as patient normally takes ozempic one subcutaneous injection weekly
[2023-05-06 20:24] LABS: Glucose,Whole Blood 167 mg/dL (70-110)
[2023-05-07 05:33] LABS: Glucose,Whole Blood 266 mg/dL (70-110)
[2023-05-07] MEDS: HEPARIN SODIUM,PORCINE 5,000 UNIT/ML 1 ML VIAL SQ SCH ×2 (05:42→15:34)
[2023-05-07] MEDS: INSULIN DETEMIR (LEVEMIR) 100 UNIT/ML SYR SQ SCH (05:44)
[2023-05-07] MEDS: INSULIN ASPART (NovoLOG) 100 UNIT/ML VIAL SQ SCH ×7 (05:44→20:52)
[2023-05-07] MEDS: SODIUM CHLORIDE 0.9% 1,000 ML in EMPTY BAG 1 BAG IV SCH ×4 (05:45→16:07)
[2023-05-07] MEDS: ASPIRIN 81 MG PO SCH (05:51)
[2023-05-07] MEDS: METOPROLOL TARTRATE 25 MG TAB PO SCH ×2 (05:57→20:52)
[2023-05-07] MEDS: PANTOPRAZOLE 40 MG TABLET PO SCH (05:57)
[2023-05-07] MEDS: LOSARTAN 25 MG TAB PO SCH (05:57)
[2023-05-07] MEDS ORDERED: ATORVASTATIN 80 MG TAB PO SCH (06:00)
[2023-05-07] MEDS ORDERED: ASPIRIN 325 MG TAB PO SCH (06:00)
[2023-05-07] MEDS ORDERED: HEPARIN SODIUM 1,000 UN/ML (10ML VL) ONE (10:54)
[2023-05-07] MEDS ORDERED: SODIUM CHLORIDE 0.9% 1,000 ML IV ONE (11:10)
[2023-05-07] MEDS ORDERED: MIDAZOLAM 2 MG/2 ML VIAL IVP ONE ×2 (11:10→11:20)
[2023-05-07] MEDS ORDERED: LIDOCAINE 1% INJ 10MG/ML (20 ML MDV) SQ ONE (11:11)
[2023-05-07] MEDS ORDERED: fentaNYL (PF) 50 MCG/ML 2 ML AMP ONE (11:13)
[2023-05-07] MEDS ORDERED: fentaNYL (PF) 50 MCG/1 ML VIAL IVP ONE (11:14)
[2023-05-07] MEDS: HEPARIN SODIUM 1,000 UN/ML (10ML VL) IVP ONE ×2 (11:15→11:40)
[2023-05-07] MEDS ORDERED: PRASUGREL 10 MG TAB ONE (11:19)
[2023-05-07] MEDS ORDERED: PRASUGREL 10 MG TAB PO ONE (11:20)
[2023-05-07] MEDS ORDERED: ONDANSETRON 4 MG/2 ML VIAL ONE (11:45)
[2023-05-07] MEDS ORDERED: NITROGLYCERIN 1000MCG/10ML SYRINGE INTRACORON ONE (11:46)
[2023-05-07] MEDS ORDERED: ONDANSETRON 4 MG/2 ML VIAL IVP ONE (11:48)
[2023-05-07] MEDS ORDERED: IOPAMIDOL-370 100ML BTL INJ ONE ×2 (11:48→12:09)
[2023-05-07] MEDS ORDERED: ZOLPIDEM 5 MG TAB PO PRN (12:12)
[2023-05-07] MEDS ORDERED: MAG HYDROX/AL HYDROX/SIMETH 30 ML CUP PO PRN (12:12)
[2023-05-07] MEDS ORDERED: ATROPINE SULFATE 0.1 MG/ML 10ML SYRINGE IV PRN (12:12)
[2023-05-07] MEDS ORDERED: NITROGLYCERIN SL TABS 0.4 MG TAB SUBLINGUAL PRN (12:12)
[2023-05-07] MEDS ORDERED: RX INFO: IV CONTRAST WAS GIVEN 1 EACH MISC MISCELLANE PRN (12:12)
--- NOTE | 2023-05-07 12:13 | P.PN ---
Subjective This is a pleasant 47-year-old male who presented to the emergency department with chest pain that has been radiating to his back that have been ongoing and progressively getting worse over the last 2 days. Patient also experiencing some mild shortness of breath on occasion and feeling like he had increased acid reflux. Patient reports that he felt this way on previous myocardial infarction when he had stenting. Patient follows with Dr. Galeano in the outpatient setting as well as Dr. Velazquez with a past medical history of asthma, diabetes mellitus, GERD, hypertension, myocardial infarctions with stenting, pneumonia, sleep apnea, is a former smoker and used to use marijuana and occasionally drinks alcohol and denies any other illicit drug use. On admission, chest x-ray showed no acute process, labs reviewed showing a normal CBC, d-dimer was normal at 0.24, sodium was normal at 135 with a potassium of 4.3 and creatinine was 0.72, magnesium was 1.7 and troponins 4 have been negative. EKG showed sinus rhythm. Patient was admitted under observation for cardiology to evaluate. Etiology evaluated the patient early this morning recommending 2-D echo which showed normal LV systolic function with no obvious regional wall motion abnormalities and EF was 55-60% with a mildly dilated right ventricular dilatation with mild mitral and tricuspid regurgitation present with no pericardial effusion. Stress test was done this morning and was suggestive of possible areas of acute reversible ischemia with an estimated EF of 45%. Cardiology planning on cardiac catheterization. In patient's extensive cardiac history and positive findings patient will require inpatient hospitalization. 05/04/2023 Patient is evaluated today resting in bed family at bedside. Does have some intermittent chest discomfort but improved since admission. He is being worked up for 4 vessel coronary bypass. Cardiac catheterization revealed severe in stent restenosis involving the mid LAD and the first diagonal branch of the LAD which is a large caliber vessel. Severe de wayne disease involving the first and second obtuse marginal branch of the left circumflex and distal ostial circumflex. Intermediate in stent restenosis involving the PDA of RCA. Patient has underwent carotid Doppler showed no stenotic and stenosis. Lower extremity ultrasound reveals normal SHAY. He is found to have a hemoglobin A1c of 12.2 and is currently on a combination of sliding scale insulin was scheduled in [facility] which will be increased. 05/05/2023 Patient is evaluated today resting in bed in no complains of any shortness of breath or chest pain. He is tentatively scheduled to undergo percutaneous intervention for the severe coronary artery disease. No plans to undergo cardiac revascularization at this time. Discussed hemoglobin A1c with the patient and he has not been taking his Ozempic as prescribed and discussed. He will need additional management on discharge. Blood glucose in the 190s. 05/06/2023 patient looks tired Still complains from chest pain/10 in severity No other new complaints He is hemodynamically stable, blood pressure low-normal. Patient informed his hemoglobin A1c is 12.2% with recommendation to continue with insulin treatment and he agrees. Currently on Levemir 15 units daily and increase NovoLog to 5 units with meals. 05/07/2023 Patient with mild chest pain this morning Patient planned to undergo cardiac cath with cartilage team today. He remains on aspirin 81 mg Sugar is uncontrolled while being on postop because an outpatient only with hemoglobin A1c is 12.2. Patient agrees to continue with insulin Continue with Lantus 15 units and decreased Levemir 5 units with meals with close monitoring. Objective - Vital Signs Vital signs: Vital Signs Temp 98.6 F 05/07/23 08:00 Pulse 71 05/07/23 08:00 Resp 18 05/07/23 08:00 BP 135/86 05/07/23 08:00 Pulse Ox 95 05/07/23 08:00 FiO2 Intake & Output 05/06/23 05/07/23 05/07/23 18:59 06:59 18:59 Intake Total 120 Balance 120 Weight 95.254 kg 96 kg Intake: Oral 120 Other: Voiding Method Toilet Toilet Toilet - Exam GENERAL: The patient is alert and oriented x3, not in any acute distress. Well developed, well nourished. HEENT: Pupils are round and equally reacting to light. EOMI. No scleral icterus. No conjunctival pallor. Normocephalic, atraumatic. No pharyngeal erythema. No thyromegaly. CARDIOVASCULAR: S1 and S2 present. No murmurs, rubs, or gallops. PULMONARY: Chest is clear to auscultation, no wheezing , no crackles. ABDOMEN: Soft, nontender, nondistended, normoactive bowel sounds. No palpable organomegaly. MUSCULOSKELETAL: No joint swelling or deformity. EXTREMITIES: No cyanosis, clubbing, or pedal edema. NEUROLOGICAL: Gross neurological examination did not reveal any focal deficits. SKIN: No rashes. no petechiae. - Labs CBC & Chem 7: 05/04/23 08:32 05/04/23 08:32 Labs: Abnormal Lab Results - Last 24 Hours (Table) 05/06/23 05/06/23 05/06/23 Range/Units 11:37 16:45 20:22 POC Glucose (mg/dL) 230 H 206 H 167 H (70-110) mg/dL 05/07/23 Range/Units 05:31 POC Glucose (mg/dL) 266 H (70-110) mg/dL Assessment and Plan Assessment: Chest pain, troponins 4 negative ACS ruled out Abnormal stress test showing possible areas of acute reversible ischemia and cardiac cath reveling severe coronary artery disease In-stent restenosis of mid LAD, first diagonal branch, and RCA History of asthma, not an exacerbation Diabetes mellitus uncontrolled hemoglobin A1c 12.2 GERD hypertension History of previous myocardial infarctions with stenting History of sleep apnea and does not use a CPAP former smoker GI prophylaxis DVT prophylaxis Plan: Recommend to continue with current medications and management with cardiology following. Patient found to severe CAD will undergo PCI no plans for CT intervention at this time. He is continued on aspirin, metoprolol, losartan and high dose statin. diabetes uncontrolled on combination of sliding scale scheduled insulin and will increase levemir for improved glycemic control. Home medications reviewed and resumed as appropriate Continue telemetry monitoring Continue monitoring Accu-Cheks before meals and at bedtime and will use sliding scale as patient normally takes ozempic one subcutaneous injection weekly
[2023-05-07] MEDS ORDERED: SODIUM CHLORIDE 0.9% 1,000 ML in EMPTY BAG 1 BAG IV SCH (12:15)
[2023-05-07 12:20] LABS: Glucose,Whole Blood 178 mg/dL (70-110)
--- NOTE | 2023-05-07 12:26 | P.PCN ---
Date of Procedure: 05/07/23 Operative Findings: PERCUTANEOUS PERIPHERAL INTERVENTION Performing physician Mitesh Galeano M.D. Procedure performed 1. Successful stenting of the first obtuse marginal branch using 2.5 x 15 mm Xience DHAVAL with an excellent angiographic results 2. Successful balloon angioplasty of the first diagonal branch of the LAD with an excellent angiographic results 3. Successful balloon angioplasty the mid LAD with an excellent angiographic results 4. Adjunctive use of intravascular imaging 5. Selective right common femoral artery angiogram and ultrasound guided access of the right common femoral artery Indication Unstable angina in this 47-year-old gentleman who underwent heart catheterization and was found to have severe disease involving OM1 and the first diagonal and the LAD. He deemed to be not a good candidate to undergo an open heart surgery giving his targets. Approach Right common femoral artery Complications None Level of sedation Moderate with a sedation time of 45 minutes Procedure description After obtaining an informed consent the patient was brought to the cardiac collaborating supervising physician. The right common femoral artery was cannulated using micropuncture technique under ultrasound guidance the micro-puncture wire passed easily then I placed a 6-Qatari sheath at the right common femoral artery. After that I did engage the left main using EBU 3.5 guiding catheter. Please note that anticoagulation was initiated using heparin with continuous ACT monitoring. I did wire the first obtuse marginal branch using a run-through wire. Intravascular ultrasound performed and showed a diameter around 2.5 mm. I did direct stenting of the lesion using 2.5 x 15 mm stent. The stent was deployed under 14 ena for 20 seconds. Intravascular ultrasound imaging again performed and showed that the stent was not well expanded in the midportion. Post titration was initiated performed using 2.5 mm noncompliant balloon and subsequently 2.75 mm noncompliant balloon. Final angiogram and intravascular imaging showed good angiographic results and the procedure was completed with no complication. After that the wire was directed toward the first diagonal branch of the LAD. Intravascular ultrasound again was performed and showed at least 2 layers of stent in the diagonal branch for that reason I decided to do balloon angioplasty again and ended that using 2.5 mm noncompliant balloon with an angiogram showing again good angiographic results was NEO-3 flow. There is an area distal to the stented segment appeared to be somewhat concerning its improved after I gave the patient intracoronary nitroglycerin and confirmed that no dissection using intravascular ultrasound. After that the wire was directed toward the LAD were I did balloon angioplasty distal using 2 mm noncompliant balloon with final angiogram showing good angiographic results and the procedure was completed was no complication Postprocedure management 1. Dual antiplatelet therapy using aspirin and Effient for at least 6 month 2. Aggressive cholesterol control 3. Risk factors modification 4. Follow-up with the patient
[2023-05-07] MEDS: HYDROcodone/APAP 5-325MG 1 EACH TAB PO PRN ×2 (12:36→20:54)
[2023-05-07 16:33] LABS: Glucose,Whole Blood 413 mg/dL (70-110)
[2023-05-07 19:53] LABS: Glucose,Whole Blood 294 mg/dL (70-110)
[2023-05-07] MEDS: ATORVASTATIN 40 MG TAB PO SCH (20:52)
[2023-05-08] MEDS: HEPARIN SODIUM,PORCINE 5,000 UNIT/ML 1 ML VIAL SQ SCH ×4 (00:12→22:12)
[2023-05-08] MEDS: SODIUM CHLORIDE 0.9% 1,000 ML in EMPTY BAG 1 BAG IV SCH ×4 (04:18→10:10)
[2023-05-08 06:06] LABS: Glucose,Whole Blood 233 mg/dL (70-110)
[2023-05-08] MEDS: INSULIN DETEMIR (LEVEMIR) 100 UNIT/ML SYR SQ SCH (06:42)
[2023-05-08] MEDS: PANTOPRAZOLE 40 MG TABLET PO SCH (06:42)
[2023-05-08] MEDS: INSULIN ASPART (NovoLOG) 100 UNIT/ML VIAL SQ SCH ×7 (06:42→20:38)
[2023-05-08] MEDS: METOPROLOL TARTRATE 25 MG TAB PO SCH ×2 (07:33→20:36)
[2023-05-08] MEDS: HYDROcodone/APAP 5-325MG 1 EACH TAB PO PRN (07:33)
[2023-05-08] MEDS: LOSARTAN 25 MG TAB PO SCH (07:33)
[2023-05-08] MEDS: ASPIRIN 81 MG PO SCH (07:33)
[2023-05-08] MEDS: PRASUGREL 10 MG TAB PO SCH (07:34)
[2023-05-08 09:21] LABS: Basophils % (A) 0 %; Eosinophils # (A) 0.1 k/uL (0-0.7); Eosinophils % (A) 1 %; HCT 34.9 % (39.0-53.0); Lymphocytes # (A) 1.8 k/uL (1.0-4.8); Lymphocytes % (A) 23 %; MCH 31.9 pg (25.0-35.0); MCHC 35.2 g/dL (31.0-37.0); MCV 90.6 fL (80.0-100.0); Mean Platelet Volume 7.4; Monocytes # (A) 0.5 k/uL (0-1.0); Monocytes % (A) 6 %; Neutrophils # (A) 5.2 k/uL (1.3-7.7); Neutrophils % (A) 68 %; Platelet Count 201 k/uL (150-450); RBC 3.85 m/uL (4.30-5.90); RDW 12.9 % (11.5-15.5); WBC 7.7 k/uL (3.8-10.6)
[2023-05-08 09:28] LABS: HGB 12.3 gm/dL (13.0-17.5)
[2023-05-08 09:41] LABS: African American GFR (CKD) >90 (>60 ml/min/1.73 sqM); Anion Gap 8 mmol/L; Blood Urea Nitrogen 16 mg/dL (9-20); Calcium 8.6 mg/dL (8.4-10.2); Carbon Dioxide 26 mmol/L (22-30); Chloride 103 mmol/L (98-107); Glucose 240 mg/dL (74-99); Non-African American GFR(CKD) >90 (>60 ml/min/1.73 sqM); Potassium 4.3 mmol/L (3.5-5.1); Sodium 137 mmol/L (137-145)
[2023-05-08] MEDS: ISOSORBIDE MONONITRATE ER 30 MG TAB.ER.24H PO SCH (09:41)
[2023-05-08] MEDS: RANOLAZINE 500 MG TAB.ER.12H PO SCH ×2 (09:41→20:37)
[2023-05-08 11:37] LABS: Glucose,Whole Blood 272 mg/dL (70-110)
--- NOTE | 2023-05-08 12:06 | P.PN ---
Subjective HISTORY OF PRESENT ILLNESS: This is a 47-year-old male with a past medical history significant for hypertension, hyperlipidemia, diabetes, and coronary artery disease with previous multivessel PCI. Patient follows in the office with Dr. Galeano. We have been asked to see the patient in consultation for chest pain. Patient examined at the bedside. Patient presented to the hospital a chief complaint of chest discomfort. He states he has been having chest discomfort for the past 1-2 days. He states the pain is in the middle of his chest and also radiates to his back. He denied any shortness of breath. He states the pain feels similar to prior episodes when he required 17. 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 At the time of examination, the patient denies any chest pain or pressure. The patient did have an episode of type 2 heart block overnight while he was sleeping. He was asymptomatic. This morning he is maintaining sinus mechanism with heart rate in the 60s. * EKG reveals sinus mechanism with nonspecific ST-T wave changes * Chest xray negative for acute process * Laboratory data: Troponin negative 4. * Current home cardiac medications include Lipitor 40 mg at night, aspirin 325 mg daily, losartan 25 mg daily, metoprolol succinate 50 mg daily * Most recent echocardiogram obtained in September 2020 revealed ejection fraction 45-50% with apical lateral LV wall hypokinesis, trace MR, and mild TR * Most recent stress test performed in October 2020 revealing mid to distal septal wall stress-induced ischemic changes. * Cardiac catheterization history: October 2020 with stenting of the PLV branch of the right coronary artery. Patent stent to the diagonal branch of the LAD. Patent stent in the mid LAD. The LAD proximal to the stented segment appears to have a long tubular lesion in the range of 50% that seems to be unchanged from previous images. Patent stent in the PDA branch of the RCA. 05/06/2023 Patient examined this morning at the bedside. He underwent cardiac catheterization on 05/03/2023 revealing severe in-stent restenosis involving the mid LAD and first diagonal branch of the LAD which is a large caliber vessel, severe disease involving the first and second obtuse marginal branch of the left circumflex and distal left circumflex and intermediate in-stent restenosis involving the PDA of the RCA. Patient was evaluated by cardiac thoracic surgery who recommended repeat for cutaneous revascularization rather than CABG. At the time of examination, patient denies any chest pain or pressure. He denies any shortness of breath. Vital signs are stable. 05/08/2023 Patient is status post cardiac catheterization yesterday with stenting of the first obtuse marginal branch and balloon angioplasty of first diagonal branch of the LAD and mid LAD. Patient examined this morning at the bedside. The patient reports having chest pain on and off overnight and this morning. He states the pain does not feel similar to when he has required stenting in the past. At the time of examination, he denies chest pain or pressure. He does report some tend erness to his right groin. Vital signs are stable. PHYSICAL EXAM: VITAL SIGNS: Reviewed. GENERAL: Well-developed in no acute distress. HEENT: Head is normocephalic. Pupils are equal, round. Sclerae anicteric. Mucous membranes of the mouth are moist. Neck supple. No JVD or thyromegaly LUNGS: Respirations even and unlabored. Lungs essentially clear to auscultation bilaterally. HEART: Regular rate and rhythm. S1 and S2 heard. ABDOMEN: Soft. Nondistended. Nontender. EXTREMITIES: Normal range of motion. No clubbing or cyanosis. Peripheral pulses intact. No lower extremity edema NEUROLOGIC: Awake and alert. Oriented x 3. ASSESSMENT: Chest pain, troponins negative 4, status post abnormal stress test, status post cardiac catheterization as above Intermittent second degree heart block; while sleeping Coronary artery disease with previous stenting of the PLV branch of RCA, PDA branch of RCA, mid LAD, and diagonal branch of LAD Hypertension Hyperlipidemia Diabetes Nicotine dependence PLAN: Continue current cardiac medications Add Imdur and Ranexa Obtain right femoral ultrasound to rule out pseudoaneurysm Continue to monitor patient. If patient continues to have episodes of chest pain, may require repeat cardiac catheterization Further recommendations pending patient's course Nurse practitioner note has been reviewed by physician. Signing provider agrees with the documented findings, assessment, and plan of care. Objective - Vital Signs Vital signs: Vital Signs Temp 98 F 05/08/23 11:18 Pulse 65 05/08/23 11:18 Resp 16 05/08/23 11:18 BP 111/68 05/08/23 11:18 Pulse Ox 93 L 05/08/23 11:18 FiO2 Intake & Output 05/07/23 05/08/2324 18:59 06:59 18:59 Intake Total 336 Output Total 600 Balance -264 Intake: IV 100 Oral 236 Output: Urine 600 Other: Voiding Method Toilet Toilet Toilet # Voids 1 - Labs CBC & Chem 7: 05/08/23 08:27 05/08/23 08:27 Labs: Abnormal Lab Results - Last 24 Hours (Table) 05/07/23 05/07/23 05/07/23 Range/Units 12:19 16:31 19:51 RBC (4.30-5.90) m/uL Hgb (13.0-17.5) gm/dL Hct (39.0-53.0) % Creatinine (0.66-1.25) mg/dL Glucose (74-99) mg/dL POC Glucose (mg/dL) 178 H 413 H 294 H (70-110) mg/dL 05/08/23 05/08/23 05/08/23 Range/Units 06:05 08:27 08:27 RBC 3.85 L (4.30-5.90) m/uL Hgb 12.3 L D (13.0-17.5) gm/dL Hct 34.9 L (39.0-53.0) % Creatinine 0.63 L (0.66-1.25) mg/dL Glucose 240 H (74-99) mg/dL POC Glucose (mg/dL) 233 H (70-110) mg/dL 05/08/23 Range/Units 11:36 RBC (4.30-5.90) m/uL Hgb (13.0-17.5) gm/dL Hct (39.0-53.0) % Creatinine (0.66-1.25) mg/dL Glucose (74-99) mg/dL POC Glucose (mg/dL) 272 H (70-110) mg/dL
--- NOTE | 2023-05-08 14:36 | P.PN ---
Subjective Progress Note Date: 05/08/23 This is a pleasant 47-year-old male who presented to the emergency department with chest pain that has been radiating to his back that have been ongoing and progressively getting worse over the last 2 days. Patient also experiencing some mild shortness of breath on occasion and feeling like he had increased acid reflux. Patient reports that he felt this way on previous myocardial infarction when he had stenting. Patient follows with Dr. Galeano in the outpatient setting as well as Dr. Velazquez with a past medical history of asthma, diabetes mellitus, GERD, hypertension, myocardial infarctions with stenting, pneumonia, sleep apnea, is a former smoker and used to use marijuana and occasionally drinks a lcohol and denies any other illicit drug use. On admission, chest x-ray showed no acute process, labs reviewed showing a normal CBC, d-dimer was normal at 0.24, sodium was normal at 135 with a potassium of 4.3 and creatinine was 0.72, magnesium was 1.7 and troponins 4 have been negative. EKG showed sinus rhythm. Patient was admitted under observation for cardiology to evaluate. Etiology evaluated the patient early this morning recommending 2-D echo which showed normal LV systolic function with no obvious regional wall motion abnormalities and EF was 55-60% with a mildly dilated right ventricular dilatation with mild mitral and tricuspid regurgitation present with no pericardial effusion. Stress test was done this morning and was suggestive of possible areas of acute reversible ischemia with an estimated EF of 45%. Cardiology planning on cardiac catheterization. In patient's extensive cardiac history and positive findings patient will require inpatient hospitalization. 05/04/2023 Patient is evaluated today resting in bed family at bedside. Does have some intermittent chest discomfort but improved since admission. He is being worked up for 4 vessel coronary bypass. Cardiac catheterization revealed severe in stent restenosis involving the mid LAD and the first diagonal branch of the LAD which is a large caliber vessel. Severe de wayne disease involving the first and second obtuse marginal branch of the left circumflex and distal ostial circumflex. Intermediate in stent restenosis involving the PDA of RCA. Patient has underwent carotid Doppler showed no stenotic and stenosis. Lower extremity ultrasound reveals normal SHAY. He is found to have a hemoglobin A1c of 12.2 and is currently on a combination of sliding scale insulin was scheduled in [facility] which will be increased. 05/05/2023 Patient is evaluated today resting in bed in no complains of any shortness of breath or chest pain. He is tentatively scheduled to undergo percutaneous intervention for the severe coronary artery disease. No plans to undergo cardiac revascularization at this time. Discussed hemoglobin A1c with the patient and he has not been taking his Ozempic as prescribed and discussed. He will need additional management on discharge. Blood glucose in the 190s. 05/06/2023 patient looks tired Still complains from chest pain/10 in severity No other new complaints He is hemodynamically stable, blood pressure low-normal. Patient informed his hemoglobin A1c is 12.2% with recommendation to continue with insulin treatment and he agrees. Currently on Levemir 15 units daily and increase NovoLog to 5 units with meals. 05/07/2023 Patient with mild chest pain this morning Patient planned to undergo cardiac cath with cardiology team today. He remains on aspirin 81 mg Sugar is uncontrolled while being on postop because an outpatient only with hemoglobin A1c is 12.2. Patient agrees to continue with insulin Continue with Lantus 15 units and decreased Levemir 5 units with meals with close monitoring. 05/08. Patient seen and examined. Complaining of chest pain this morning. Card iology ordered ranexa and Imdur REVIEW OF SYSTEMS: CONSTITUTIONAL: No fever, no malaise,. CARDIOVASCULAR: Nopalpitations, no syncope. PULMONARY: No shortness of breath, no cough, GASTROINTESTINAL: No diarrhea, no nausea, no vomiting, no abdominal pain. NEUROLOGICAL: No headaches, no weakness, PHYSICAL EXAMINATION: GENERAL: The patient is alert and oriented x3, not in any acute distress. Well developed, well nourished. HEENT: Pupils are round and equally reacting to light. EOMI. No scleral icterus. No conjunctival pallor. Normocephalic, atraumatic. No pharyngeal erythema. No thyromegaly. CARDIOVASCULAR: S1 and S2 present. No murmurs, rubs, or gallops. PULMONARY: Chest is clear to auscultation, no wheezing or crackles. ABDOMEN: Soft, nontender, nondistended, normoactive bowel sounds. No palpable organomegaly. MUSCULOSKELETAL: No joint swelling or deformity. EXTREMITIES: No cyanosis, clubbing, or pedal edema. NEUROLOGICAL: Gross neurological examination did not reveal any focal deficits. SKIN: No rashes. Assessment and plan Chest pain, troponins 4 negative ACS ruled out Abnormal stress test showing possible areas of acute reversible ischemia and cardiac cath reveling severe coronary artery disease In-stent restenosis of mid LAD, first diagonal branch, and RCA History of asthma, not an exacerbation Diabetes mellitus uncontrolled hemoglobin A1c 12.2 GERD hypertension History of previous myocardial infarctions with stenting History of sleep apnea and does not use a CPAP former smoker GI prophylaxis DVT prophylaxis Plan: Monitor vital signs Monitor CBC Monitor CMP Status post cardiac catheterization with successful stenting of the first obtuse marginal branch using 2.5 x 15 mm Xience DHAVAL with an excellent angiographic results, Successful balloon angioplasty of the first diagonal branch of the LAD with an excellent angiographic results,. Successful balloon angioplasty the mid LAD with an excellent angiographic results Continue aspirin, Effient, metoprolol, losartan and high dose statin. Cardiology following Labs and medication were reviewed.. Continue same treatment. Continue with symptomatic treatment. Resume home medication. Monitor labs and vitals. DVT and GI prophylaxis. Further recommendations as per clinical course of the patient Dictation was produced using [employer] dictation software. please excuse any grammatical, word or spelling errors. Objective - Vital Signs Vital signs: Vital Signs Temp 98 F 05/08/23 11:18 Pulse 65 05/08/23 11:18 Resp 16 05/08/23 11:18 BP 111/68 05/08/23 11:18 Pulse Ox 93 L 05/08/23 11:18 FiO2 Intake & Output 05/07/23 05/08/23 05/08/23 18:59 06:59 18:59 Intake Total 336 Output Total 600 Balance -264 Intake: IV 100 Oral 236 Output: Urine 600 Other: Voiding Method Toilet Toilet Toilet # Voids 1 - Labs CBC & Chem 7: 05/08/23 08:27 05/08/23 08:27 Labs: Abnormal Lab Results - Last 24 Hours (Table) 05/07/23 05/07/23 05/07/23 Range/Units 12:19 16:31 19:51 RBC (4.30-5.90) m/uL Hgb (13.0-17.5) gm/dL Hct (39.0-53.0) % Creatinine (0.66-1.25) mg/dL Glucose (74-99) mg/dL POC Glucose (mg/dL) 178 H 413 H 294 H (70-110) mg/dL 01/02/1905/08/23 05/08/23 Range/Units 06:05 08:27 08:27 RBC 3.85 L (4.30-5.90) m/uL Hgb 12.3 L D (13.0-17.5) gm/dL Hct 34.9 L (39.0-53.0) % Creatinine 0.63 L (0.66-1.25) mg/dL Glucose 240 H (74-99) mg/dL POC Glucose (mg/dL) 233 H (70-110) mg/dL
--- NOTE | 2023-05-08 15:43 | US ---
EXAMINATION TYPE: US lower ext pseudo artery RT DATE OF EXAM: 05/08/2023 COMPARISON: NONE CLINICAL INDICATION: Male, 47 years old with history of s/p cath, femoral tenderness; EXAM PERFORMED: Grayscale and color Doppler duplex imaging performed of the groin, post cardiac maribel ter to assess for pseudoaneurysm. SIDE PERFORMED: Right Color and Waveform Doppler performed to assess for the presence of pseudoaneurysm; Is there ultrasound evidence of a pseudoaneurysm: no Is there evidence of AV shunting: no Is there a fluid collection present: no IMPRESSION: No evidence for AV shunting, fistula or pseudoaneurysm.
[2023-05-08 16:47] LABS: Glucose,Whole Blood 197 mg/dL (70-110)
[2023-05-08 19:57] LABS: Glucose,Whole Blood 257 mg/dL (70-110)
[2023-05-08] MEDS: ATORVASTATIN 40 MG TAB PO SCH (20:36)
[2023-05-09] MEDS: SODIUM CHLORIDE 0.9% 1,000 ML in EMPTY BAG 1 BAG IV SCH ×3 (05:02→11:05)
[2023-05-09 06:04] LABS: Glucose,Whole Blood 237 mg/dL (70-110)
[2023-05-09] MEDS: INSULIN DETEMIR (LEVEMIR) 100 UNIT/ML SYR SQ SCH (06:54)
[2023-05-09] MEDS: INSULIN ASPART (NovoLOG) 100 UNIT/ML VIAL SQ SCH ×4 (06:54→11:36)
[2023-05-09] MEDS: PANTOPRAZOLE 40 MG TABLET PO SCH (06:54)
[2023-05-09] MEDS: HEPARIN SODIUM,PORCINE 5,000 UNIT/ML 1 ML VIAL SQ SCH (07:21)
[2023-05-09] MEDS: PRASUGREL 10 MG TAB PO SCH (07:35)
[2023-05-09] MEDS: LOSARTAN 25 MG TAB PO SCH (07:35)
[2023-05-09] MEDS: RANOLAZINE 500 MG TAB.ER.12H PO SCH (07:35)
[2023-05-09] MEDS: METOPROLOL TARTRATE 25 MG TAB PO SCH (07:35)
[2023-05-09] MEDS: ASPIRIN 81 MG PO SCH (07:35)
[2023-05-09] MEDS: ISOSORBIDE MONONITRATE ER 30 MG TAB.ER.24H PO SCH (07:36)
[2023-05-09 11:33] LABS: Glucose,Whole Blood 149 mg/dL (70-110)
[2023-05-09 12:08] VITALS: BP 96/61; PULSE 82; RESP 16; TEMP 98.9
--- NOTE | 2023-05-09 13:36 | P.PN ---
Subjective HISTORY OF PRESENT ILLNESS: This is a 47-year-old male with a past medical history significant for hypertension, hyperlipidemia, diabetes, and coronary artery disease with previous multivessel PCI. Patient follows in the office with Dr. Galeano. We have been asked to see the patient in consultation for chest pain. Patient examined at the bedside. Patient presented to the hospital a chief complaint of chest discomfort. He states he has been having chest discomfort for the past 1-2 days. He states the pain is in the middle of his chest and also radiates to his back. He denied any shortness of breath. He states the pain feels similar to prior episodes when he required 17. 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 At the time of examination, the patient denies any chest pain or pressure. The patient did have an episode of type 2 heart block overnight while he was sleeping. He was asymptomatic. This morning he is maintaining sinus mechanism with heart rate in the 60s. * EKG reveals sinus mechanism with nonspecific ST-T wave changes * Chest xray negative for acute process * Laboratory data: Troponin negative 4. * Current home cardiac medications include Lipitor 40 mg at night, aspirin 325 mg daily, losartan 25 mg daily, metoprolol succinate 50 mg daily * Most recent echocardiogram obtained in September 2020 revealed ejection fraction 45-50% with apical lateral LV wall hypokinesis, trace MR, and mild TR * Most recent stress test performed in October 2020 revealing mid to distal septal wall stress-induced ischemic changes. * Cardiac catheterization history: October 2020 with stenting of the PLV branch of the right coronary artery. Patent stent to the diagonal branch of the LAD. Patent stent in the mid LAD. The LAD proximal to the stented segment appears to have a long tubular lesion in the range of 50% that seems to be unchanged from previous images. Patent stent in the PDA branch of the RCA. 05/06/2023 Patient examined this morning at the bedside. He underwent cardiac catheterization on 05/03/2023 revealing severe in-stent restenosis involving the mid LAD and first diagonal branch of the LAD which is a large caliber vessel, severe disease involving the first and second obtuse marginal branch of the left circumflex and distal left circumflex and intermediate in-stent restenosis involving the PDA of the RCA. Patient was evaluated by cardiac thoracic surgery who recommended repeat for cutaneous revascularization rather than CABG. At the time of examination, patient denies any chest pain or pressure. He denies any shortness of breath. Vital signs are stable. 05/08/2023 Patient is status post cardiac catheterization yesterday with stenting of the first obtuse marginal branch and balloon angioplasty of first diagonal branch of the LAD and mid LAD. Patient examined this morning at the bedside. The patient reports having chest pain on and off overnight and this morning. He states the pain does not feel similar to when he has required stenting in the past. At the time of examination, he denies chest pain or pressure. He does report some tend erness to his right groin. Vital signs are stable. 05/09/2023 Patient examined this morning at the bedside. Patient has had no further episodes of chest pain or pressure. He denies any shortness of breath. Vital signs are stable. Ultrasound of the right groin completed with no evidence of pseudoaneurysm. He is hoping to be discharged home today. PHYSICAL EXAM: VITAL SIGNS: Reviewed. GENERAL: Well-developed in no acute distress. HEENT: Head is normocephalic. Pupils are equal, round. Sclerae anicteric. Mucous membranes of the mouth are moist. Neck supple. No JVD or thyromegaly LUNGS: Respirations even and unlabored. Lungs essentially clear to auscultation bilaterally. HEART: Regular rate and rhythm. S1 and S2 heard. ABDOMEN: Soft. Nondistended. Nontender. EXTREMITIES: Normal range of motion. No clubbing or cyanosis. Peripheral pulses intact. No lower extremity edema NEUROLOGIC: Awake and alert. Oriented x 3. ASSESSMENT: Chest pain, troponins negative 4, status post abnormal stress test, status post cardiac catheterization as above Intermittent second degree heart block; while sleeping Coronary artery disease with previous stenting of the PLV branch of RCA, PDA branch of RCA, mid LAD, and diagonal branch of LAD Hypertension Hyperlipidemia Diabetes Nicotine dependence PLAN: Continue current cardiac medications Patient is stable for discharge home today from a cardiac standpoint He is to follow up post discharge in the office with Dr. Galeano Nurse practitioner note has been reviewed by physician. Signing provider agrees with the documented findings, assessment, and plan of care. Objective - Vital Signs Vital signs: Vital Signs Temp 98.9 F 05/09/23 11:45 Pulse 82 05/09/23 11:45 Resp 16 05/09/23 11:45 BP 96/61 05/09/23 11:45 Pulse Ox 93 L 05/09/23 11:45 FiO2 Intake & Output 05/08/23 05/09/23 05/09/23 18:59 06:59 18:59 Intake Total 558 480 Balance 558 480 Intake: Oral 558 480 Other: Voiding Method Toilet Toilet Toilet - Labs CBC & Chem 7: 05/08/23 08:27 05/08/23 08:27 Labs: Abnormal Lab Results - Last 24 Hours (Table) 05/08/23 05/08/23 05/09/23 Range/Units 16:42 19:56 06:03 POC Glucose (mg/dL) 197 H 257 H 237 H (70-110) mg/dL 05/09/23 Range/Units 11:32 POC Glucose (mg/dL) 149 H (70-110) mg/dL
--- NOTE | 2023-05-11 07:31 | P.DS ---
Providers Date of admission: 05/03/23 13:59 Expected date of discharge: 05/09/23 Attending physician: Lynda Ly Consults: 05/02/23 17:54 Consult Physician Routine Consulting Provider: Karena Low Consult Reason/Comments: chest pain Do you want consulting provider notified?: Yes 05/03/23 18:04 Consult Physician Routine Consulting Provider: Nicholas Lancaster Consult Reason/Comments: evaluation for CABG Do you want consulting provider notified?: Yes, Notify in am 05/07/23 12:12 Consult Physician Routine Consulting Provider: Karena Low Consult Reason/Comments: Post Interventional patient Do you want consulting provider notified?: Already Contacted Primary care physician: Greg Velazquez Hospital Course: Final diagnosis Chest pain, troponins 4 negative ACS ruled out Abnormal stress test showing possible areas of acute reversible ischemia and cardiac cath reveling severe coronary artery disease In-stent restenosis of mid LAD, first diagonal branch, and RCA status post successful stenting and repeat catheterization History of asthma, not an exacerbation Diabetes mellitus uncontrolled hemoglobin A1c 12.2 GERD hypertension History of previous myocardial infarctions with stenting History of sleep apnea and does not use a CPAP former smoker GI prophylaxis DVT prophylaxis Discharge disposition Patient is being discharged in a stable condition with guarded prognosis to home. Patient will follow-up with Dr. Velazquez in the outpatient setting upon discharge. Patient is to continue with current medications and outpatient follow-up with cardiology as scheduled. Recommend endocrine follow-up is patient's diabetes is uncontrolled and hemoglobin A1c is 12.2. Patient will be going home on insulin and has been instructed to follow-up with primary care provider regarding this. Total time taken is greater than 35 minutes. Hospital course This is a 47-year-old male who was recently admitted with chest pain and troponins were negative although had an abnormal stress test and underwent cardiac catheterization showing in-stent stenosis and underwent successful stenting of the RCA and LAD. Patient was monitored and evaluated by cardiology recommending monitoring overnight for any further arrhythmias or abnormalities and patient has been cleared by cardiology today. Patient's blood sugars are uncontrolled and reports he receives ozempic : A1c is 12.2. Patient will be going home on long-acting insulin and has been instructed to follow up with endocrine as well as primary care provider. Patient encouraged to monitor blood sugars before meals and at bedtime and keep a diary of all readings for follow- up. Patient has been cleared by consultations. Please refer to consultation note for further HPI. Currently no reports of chest pain, shortness of breath, or palpitations. Patient is afebrile. No reports of nausea or vomiting and patient is tolerating diet. Patient will be discharged home today. Physical exam: Gen: This is a 47-year-old male who is awake, alert and oriented 3, well- developed, well-nourished HEENT: Head is atraumatic, normocephalic. Pupils equal, round. Sclerae is anicteric. NECK: Supple. No JVD. No lymphadenopathy. No thyromegaly. LUNGS: Clear to auscultation. No wheezes or rhonchi. No intercostal retractions. HEART: Regular rate and rhythm. No murmur. ABDOMEN: Soft. Bowel sounds are present. No masses. No tenderness. EXTREMITIES: No pedal edema. No calf tenderness. NEUROLOGICAL: Patient is awake, alert and oriented x3. Cranial nerves 2 through 12 are grossly intact. Please refer to medication reconciliation sheet for a list of medications. The impression and plan of care has been dictated by Tess Wyatt, Nurse Practitioner as directed. Dr. Zully MD I have performed a history and examination and MDM of this patient, discussed the same with the dictator, and agree with the dictator's assessment and plan as written ,documented as a scribe. Based on total visit time, I have performed more than 50% of the visit. Patient Condition at Discharge: Stable Plan - Discharge Summary Discharge Rx Participant: No New Discharge Prescriptions: New Aspirin 81 mg PO DAILY #30 tab Insulin Detemir (Levemir) [Levemir] 15 unit SQ DAILY@0700 30 Days #5 each Mag Hydrox/Al Hydrox/Simeth [Maalox] 30 ml PO Q4HR PRN ml PRN Reason: Heartburn Ranolazine [Ranexa] 500 mg PO Q12HR #60 tab Prasugrel [Effient] 10 mg PO DAILY #30 tab Isosorbide Mononitrate ER [Imdur] 30 mg PO DAILY #30 tab Metoprolol Tartrate [Lopressor] 25 mg PO BID #60 tab Nitroglycerin Sl Tabs [Nitrostat] 0.4 mg SUBLINGUAL Q5M PRN #30 tab PRN Reason: Chest Pain Continue Omeprazole [PriLOSEC] 40 mg PO DAILY Ibuprofen [Motrin] 600 mg PO Q6HR PRN #40 tab PRN Reason: Pain Losartan [Cozaar] 25 mg PO DAILY Atorvastatin [Lipitor] 40 mg PO HS Semaglutide [Ozempic] 0.5 mg SQ TH Discontinued Metoprolol Succinate (ER) [Toprol XL] 50 mg PO DAILY Cefdinir [Omnicef] 300 mg PO Q12HR tadalafiL 20 mg PO DAILY PRN PRN Reason: HEART ISSUES Aspirin EC [Ecotrin] 325 mg PO DAILY Discharge Medication List Atorvastatin [Lipitor] 40 mg PO HS 02/06/23 [History] Omeprazole [PriLOSEC] 40 mg PO DAILY 02/06/23 [History] Ibuprofen [Motrin] 600 mg PO Q6HR PRN #40 tab 02/07/23 [Rx] Losartan [Cozaar] 25 mg PO DAILY 05/02/23 [History] Semaglutide [Ozempic] 0.5 mg SQ TH 05/02/23 [History] Aspirin 81 mg PO DAILY #30 tab 05/09/23 [Rx] Insulin Detemir (Levemir) [Levemir] 15 unit SQ DAILY@0700 30 Days #5 each 05/09/23 [Rx] Isosorbide Mononitrate ER [Imdur] 30 mg PO DAILY #30 tab 05/09/23 [Rx] Mag Hydrox/Al Hydrox/Simeth [Maalox] 30 ml PO Q4HR PRN ml 05/09/23 [Rx] Metoprolol Tartrate [Lopressor] 25 mg PO BID #60 tab 05/09/23 [Rx] Nitroglycerin Sl Tabs [Nitrostat] 0.4 mg SUBLINGUAL Q5M PRN #30 tab 05/09/23 [Rx] Prasugrel [Effient] 10 mg PO DAILY #30 tab 05/09/23 [Rx] Ranolazine [Ranexa] 500 mg PO Q12HR #60 tab 05/09/23 [Rx] Follow up Appointment(s)/Referral(s): Greg Velazquez MD [Primary Care Provider] - 05/13/23 10:00 am Mitesh Galeano MD [STAFF PHYSICIAN] - 1 Week (Office did not anwser. Please call and make lasha. ) Raymond Sheth MD [REFERRING] - 1 Week (Diabetes doctor. Have Dr. Velazquez send a referal and a H&P to them. ) Patient Instructions/Handouts: Chest Pain (DC) Activity/Diet/Wound Care/Special Instructions: activity limited until follow up follow up with pcp this week follow up with cardiology on discharge continue taking medications as prescribed continue to monitor blood sugars and keep a diary of all readings for follow up recommend endocrine follow up for uncontrolled diabetes Discharge Disposition: HOME SELF-CARE
== END 2023-05-09 16:15 | disposition home or self-care (01) | DRG 322 ==
LOC: EC 11:39 → 6NMEDSUR 17:56 → OBSVTOIN 05-03 13:59 → 3SCARD 05-04 02:36
PROVIDERS: ADMIT Internal Medicine; ATTEND Internal Medicine
PROC: B2111ZZ Fluoroscopy of Multiple Coronary Arteries using Low Osmolar Contrast (ICD-10-PCS; 2023-05-03)
PROC: 4A023N7 Measurement of Cardiac Sampling and Pressure, Left Heart, Percutaneous Approach (ICD-10-PCS; 2023-05-03)
PROC: B2151ZZ Fluoroscopy of Left Heart using Low Osmolar Contrast (ICD-10-PCS; 2023-05-03)
PROC: 027034Z Dilation of Coronary Artery, One Artery with Drug-eluting Intraluminal Device, Percutaneous Approach (ICD-10-PCS; principal; 2023-05-07 10:30)
PROC: 02713ZZ Dilation of Coronary Artery, Two Arteries, Percutaneous Approach (ICD-10-PCS; 2023-05-07 10:30)
PROC: B240ZZ3 Ultrasonography of Single Coronary Artery, Intravascular (ICD-10-PCS; 2023-05-07 10:30)
DX: I25.110 Atherosclerotic heart disease of native coronary artery with unstable angina pectoris (principal); T82.855A Stenosis of coronary artery stent, initial encounter; F84.0 Autistic disorder; E78.5 Hyperlipidemia, unspecified; E83.42 Hypomagnesemia; F17.200 Nicotine dependence, unspecified, uncomplicated; I44.1 Atrioventricular block, second degree; G47.33 Obstructive sleep apnea (adult) (pediatric); I10 Essential (primary) hypertension; I25.2 Old myocardial infarction; Y71.2 Prosthetic and other implants, materials and accessory cardiovascular devices associated with adverse incidents; Z95.5 Presence of coronary angioplasty implant and graft; K21.9 Gastro-esophageal reflux disease without esophagitis; Z79.4 Long term (current) use of insulin; Z79.82 Long term (current) use of aspirin; Z79.899 Other long term (current) drug therapy; Z82.49 Family history of ischemic heart disease and other diseases of the circulatory system
CPT/HCPCS: 36415; 71046; 76937; 78452; 80048; 80053; 80061; 80074; 81001; 83036; 83735; 83880; 84443; 84484; 85025; 85379; 85610; 85730; 92920; 92921; 92978; 92979; 93005; 93017; 93306; 93458; 93880; 93922; 93930; 93970; 93975; 96361; 96365; 96366; 96375; 99285

== ENCOUNTER 2023-10-22 16:56 | Emergency (ER) | payer SELFPAY ==
[2023-10-22] MEDS: fentaNYL (PF) 50 MCG/ML 2 ML AMP IVP STA ×2 (17:08→17:38)
[2023-10-22 17:14] VITALS: PULSE 95; RESP 22; TEMP 97.2
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
[2023-10-22 17:29] LABS: Basophils # (A) 0.1 k/uL (0-0.2); Basophils % (A) 1 %; Eosinophils # (A) 0.1 k/uL (0-0.7); Eosinophils % (A) 0 %; HCT 39.4 % (39.0-53.0); HGB 12.9 gm/dL (13.0-17.5); Lymphocytes # (A) 4.7 k/uL (1.0-4.8); Lymphocytes % (A) 26 %; MCHC 32.9 g/dL (31.0-37.0); MCV 91.4 fL (80.0-100.0); Mean Platelet Volume 8.1; Monocytes # (A) 0.6 k/uL (0-1.0); Monocytes % (A) 4 %; Neutrophils # (A) 12.4 k/uL (1.3-7.7); Neutrophils % (A) 68 %; Platelet Count 284 k/uL (150-450); RBC 4.31 m/uL (4.30-5.90); WBC 18.2 k/uL (3.8-10.6)
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
[2023-10-22] MEDS: DIPH,PERTUS(ACELL)TETVAC-LF 0.5 ML VIAL IM ONE (17:33)
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
[2023-10-22 17:35] LABS: Prothrombin Time 11.1 sec (10.0-12.5)
[2023-10-22] MEDS: SODIUM CHLORIDE 0.9% 500 ML 500 ML IV ONE (17:35)
[2023-10-22 17:37] LABS: Partial Thromboplastin Time 20.1 sec (22.0-30.0)
[2023-10-22] MEDS: SODIUM CHLORIDE 0.9% 1,000 ML BAG IV STA (17:37)
[2023-10-22 17:45] LABS: ALT 558 U/L (4-49); African American GFR (CKD) >90 (>60 ml/min/1.73 sqM); Alcohol <10 mg/dL; Alkaline Phosphatase 136 U/L (38-126); Anion Gap 8 mmol/L; Blood Urea Nitrogen 30 mg/dL (9-20); Calcium 9.3 mg/dL (8.4-10.2); Carbon Dioxide 21 mmol/L (22-30); Chloride 108 mmol/L (98-107); Glucose 192 mg/dL (74-99); Non-African American GFR(CKD) >90 (>60 ml/min/1.73 sqM); Sodium 137 mmol/L (137-145); Total Bilirubin 0.6 mg/dL (0.2-1.3); Total Protein 6.1 g/dL (6.3-8.2)
[2023-10-22 18:12] VITALS: BP 189/100
[2023-10-22] MEDS: HYDROmorphone 0.5 MG/0.5 ML SYRINGE IVP STA ×2 (18:12→18:32)
[2023-10-22 18:17] LABS: AST 868 U/L (17-59)
[2023-10-22] MEDS: ONDANSETRON 4 MG/2 ML VIAL IVP STA (18:28)
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
[2023-10-22 20:00] LABS: Amphetamine Screen,Urine Not Detected (NotDetected); Appearance,Urine Clear (Clear); Benzodiazepines Screen,Urine Not Detected (NotDetected); Bilirubin,Urine Negative (Negative); Blood,Urine Moderate (Negative); Cocaine Screen,Urine Not Detected (NotDetected); Color,Urine Colorless; Glucose,Urine (UA) Negative (Negative); Hyaline Casts,Urine 1 /lpf (0-2); Ketones,Urine Negative (Negative); Leukocyte Esterase,Urine Negative (Negative); Methadone Screen, Urine Not Detected (NotDetected); Nitrite,Urine Negative (Negative); Opiate Screen,Urine Not Detected (NotDetected); Phencyclidine Screen,Urine Not Detected (NotDetected); Protein,Urine 1+ (Negative); RBC,Urine 36 /hpf (0-5); Specific Gravity,Urine 1.028 (1.001-1.035); Squamous Epithelial Cell,Urine <1 /hpf (0-4); Tricyclic Antidepressant,Urine Not Detected (NotDetected); Urn Cannabinoid Scrn Detected (NotDetected); Urobilinogen,Urine <2.0 mg/dL (<2.0); WBC,Urine 3 /hpf (0-5)
[2023-10-22 20:01] LABS: Barbiturate Screen,Urine Not Detected (NotDetected); Oxycodone Screen, Urine Not Detected (NotDetected)
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
== END 2023-10-22 19:00 | disposition short-term general hospital (02) ==
LOC: EC 16:56
DX: S22.21XA Fracture of manubrium, initial encounter for closed fracture (principal); S42.031A Displaced fracture of lateral end of right clavicle, initial encounter for closed fracture; Z87.891 Personal history of nicotine dependence; Z90.49 Acquired absence of other specified parts of digestive tract; V28.49XA Other motorcycle driver injured in noncollision transport accident in traffic accident, initial encounter; Y92.410 Unspecified street and highway as the place of occurrence of the external cause
CPT/HCPCS: 99291; 96374; 96375 ×2; 96361; 29515; 36415; 93005; 86900; 86901; 80053; 84484; 85025; 85610; 85730; 86850; 81001; 80306; 80320; 72170; 73020; 73600; 71045; 72125; 70450; 71260; 74177; L3670; J2405; J3010; J1170; Q9967

== ENCOUNTER 2024-03-04 13:05 | Emergency (ER) | payer OTHER ==
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
--- NOTE | 2024-03-04 14:22 | US ---
EXAMINATION TYPE: US venous doppler duplex UE RT DATE OF EXAM: 03/04/2024 COMPARISON: NONE CLINICAL INDICATION: Male, 48 years old with history of weak pulse, discoloration, pain; decreased pu lses TECHNIQUE: Grayscale, color Doppler and spectral Doppler imaging of the upper extremity. SIDE PERFORMED: Right FINDINGS: Right Arm: Negative for DVT Appropriate color Doppler flow and spectral waveforms of the visualized vessels. Grayscale, color doppler, spectral doppler imaging performed of the deep veins of the upper extremiti es. IMPRESSION: [facility], Workstation: [id number], 03/04/2024 2:20 PM
[2024-03-04 15:50] VITALS: BP 127/62; PULSE 74; RESP 16; TEMP 98.1
== END 2024-03-04 15:50 | disposition home or self-care (01) ==
LOC: EC 13:05
DX: R53.1 Weakness (principal); Z87.891 Personal history of nicotine dependence
CPT/HCPCS: 99285

== ENCOUNTER 2024-03-16 11:37 | Observation (INO) | payer OTHER ==
--- NOTE | 2024-03-16 13:03 | ED ---
General Adult HPI - General Source: patient, family, EMS, RN notes reviewed Mode of arrival: EMS Limitations: no limitations <Sacha Cameron - Last Filed: 03/16/24 14:53> <Moy Wagner - Last Filed: 03/16/24 17:46> - General Chief complaint: Nausea/Vomiting/Diarrhea Stated complaint: Vomiting,Diarrhea Time Seen by Provider: 03/16/24 11:42 - History of Present Illness Initial comments: 48 year old presents to the emergency department with chief complaint of nausea and vomiting. He states that last night, he had a bowl of cereal which he realized later that the milk was spoiled. He states that since then, he has had nausea, vomiting, and diarrhea. Currently, he mainly complains of nausea without other associated symptoms. He denies hematemesis, abdominal pain, shortness of breath, and other symptoms. (Sacha Cameron) - Related Data Home Medications Medication Instructions Recorded Confirmed Atorvastatin [Lipitor] 40 mg PO HS 02/06/23 05/02/23 Omeprazole [PriLOSEC] 40 mg PO DAILY 02/06/23 05/02/23 Losartan [Cozaar] 25 mg PO DAILY 05/02/23 05/02/23 Apixaban [Eliquis] 2.5 mg PO BID 03/16/24 03/16/24 Aspirin EC [Ecotrin Low Dose] 81 mg PO DAILY 03/16/24 03/16/24 Docusate [Colace] 100 mg PO BID 03/16/24 03/16/24 Dulaglutide [Trulicity] 1.5 mg SQ DIRECTED 03/16/24 03/16/24 Ibuprofen [Motrin] 800 mg PO BID 03/16/24 03/16/24 Ibuprofen [Motrin] 800 mg PO DAILY PRN 03/16/24 03/16/24 Metoprolol Succinate (ER) [Toprol 50 mg PO BID 03/16/24 03/16/24 Xl] Ondansetron Odt [Zofran Odt] 8 mg PO Q12HR PRN 03/16/24 03/16/24 methocarbamoL [Robaxin] 500 mg PO BID 03/16/24 03/16/24 oxyCODONE HCL [oxyCODONE HCL (IR)] 10 mg PO 5XD 03/16/24 03/16/24 Previous Rx's Medication Instructions Recorded Metoclopramide [Reglan] 10 mg PO TID PRN #15 tab 03/16/24 Ondansetron Odt [Zofran Odt] 4 mg PO Q8HR PRN #10 tab 03/16/24 Allergies Allergy/AdvReac Type Severity Reaction Status Date / Time No Known Allergies Allergy Verified 03/16/24 11:46 Review of Systems ROS Other: All systems not noted in ROS Statement are negative. <Sacha Cameron - Last Filed: 03/16/24 14:53> ROS Other: All systems not noted in ROS Statement are negative. Constitutional: Denies: fever Eyes: Denies: eye pain Cardiovascular: Reports: chest pain Gastrointestinal: Reports: nausea, vomiting Musculoskeletal: Denies: back pain <Moy Wagner - Last Filed: 03/16/24 17:46> ROS Statement: Those systems with pertinent positive or pertinent negative responses have been documented in the HPI. Past Medical History Past Medical History: Asthma, Coronary Artery Disease (CAD), Chest Pain / Angina, Diabetes Mellitus, GERD/Reflux, Hyperlipidemia, Hypertension, Myocardial Infarction ([place]), Pneumonia, Sleep Apnea/CPAP/BIPAP Additional Past Medical History / Comment(s): no cpap machine used, pancreatitis Last Myocardial Infarction Date:: 11/18/2020 History of Any Multi-Drug Resistant Organisms: None Reported Past Surgical History: Cholecystectomy, Hernia Repair, Tonsillectomy Additional Past Surgical History / Comment(s): 03/08/16 heart cath stent to 1st diag and 11/18/2020 stent to the PLV. Stents to Mid LAD, 1st Diag, PLV and PDA Past Anesthesia/Blood Transfusion Reactions: No Reported Reaction Past Psychological History: No Psychological Hx Reported Smoking Status: Former smoker Past Alcohol Use History: Occasional Past Drug Use History: Marijuana - Past Family History Mother Family Medical History: Fibromyalgia, Osteoarthritis (OA) Additional Family Medical History / Comment(s): djd/hip replacement, von willebrand's, brother and sister had von willebrand's to. Father Family Medical History: CVA/TIA, Hyperlipidemia, Hypertension, Myocardial Infarction ([place]) Additional Family Medical History / Comment(s): boarderline diabetic Brother(s) Family Medical History: Myocardial Infarction ([place]) <Sacha Cameron - Last Filed: 03/16/24 14:53> General Exam Limitations: no limitations General appearance: alert, in no apparent distress Eye exam: Present: normal appearance Respiratory exam: Present: normal lung sounds bilaterally Cardiovascular Exam: Present: regular rate, normal rhythm Expanded Peripheral pulses: 2+: Radial (R), Radial (L), Dorsalis Pedis (R), Dorsalis Pedis (L) GI/Abdominal exam: Present: soft. Absent: tenderness Extremities exam: Present: normal inspection. Absent: pedal edema, calf tenderness Neurological exam: Present: alert Psychiatric exam: Present: normal affect, normal mood Skin exam: Present: normal color <Moy Wagner - Last Filed: 03/16/24 17:46> Course Vital Signs 03/16/24 03/16/24 11:39 15:17 Temperature 97.6 F 99.4 F Pulse Rate 75 85 Respiratory 18 16 Rate Blood Pressure 178/94 148/88 O2 Sat by Pulse 100 98 Oximetry Medical Decision Making - Lab Data Result diagrams: 03/16/24 12:58 03/16/24 12:58 <Sacha Cameron - Last Filed: 03/16/24 14:53> - Lab Data Result diagrams: 03/16/24 12:58 03/16/24 12:58 <Moy Wagner - Last Filed: 03/16/24 17:46> - Medical Decision Making Was pt. sent in by a medical professional or institution (BRANDYN Knapp, MAGISTERIAL DISTRICT JUDGE, urgent care, hospital, or alf...) When possible be specific @ -No Did you speak to anyone other than the patient for history (EMS, parent, family, police, friend...)? What history was obtained from this source @ -Family is present and provides additional history of also having problems that it appears to be from [place] Did you review nursing and triage notes (agree or disagree)? Why? @ -I reviewed and agree with nursing and triage notes Were old charts reviewed (outside hosp., previous admission, EMS record, old EKG, old radiological studies, urgent care reports/EKG's, alf records)? Report findings @ -Chest x-ray reviewed Differential Diagnosis (chest pain, altered mental status, abdominal pain women, abdominal pain men, vaginal bleeding, weakness, fever, dyspnea, syncope, headache, dizziness, GI bleed, back pain, seizure, CVA, palpatations, mental health, musculoskeletal)? @ -Differential Chest Pain: Stable Angina, Unstable Angina, STEMI, NSTEMI Aortic Dissection, Pneumothorax, Musculoskeletal, Esophageal Spasm GERD, Cholecystitis, Pancreatitis, Zoster, this is not meant to be an all-inclusive list. Differential Abdominal Pain Men: Appendicitis, cholecystitis, diverticulosis, ischemic bowel, pancreatitis, hepatitis, UTI, gastroenteritis, AAA, incarcerated hernia, bowel obstruction, constipation, inflammatory bowel, hepatitis, peptic ulcer disease, splenic infarction, perforated viscus, testicular torsion, this is not meant to be an all-inclusive list EKG interpreted by me (3pts min.). @ -As above X-rays interpreted by me (1pt min.). @ -Chest x-ray shows no acute process CT interpreted by me (1pt min.). @ -None done U/S interpreted by me (1pt. min.). @ -None done What testing was considered but not performed or refused? (CT, X-rays, U/S, labs)? Why? @ -None What meds were considered but not given or refused? Why? @ -None Did you discuss the management of the patient with other professionals (professionals i.e. , PA, MAGISTERIAL DISTRICT JUDGE, lab, RT, psych nurse, geriatric social worker, pulverizing and sifting operator, teacher, house officer, manager case management)? Give summary @ -Case discussed with Dr. Man with [facility] who will admit covering hospital call Was smoking cessation discussed for >3mins.? @ -No Was critical care preformed (if so, how long)? @ -No Were there social determinants of health that impacted care today? How? (Homelessness, low income, unemployed, alcoholism, drug addiction, transportation, low edu. Level, literacy, decrease access to med. care, long-term, rehab)? @ -No Was there de-escalation of care discussed even if they declined (Discuss DNR or withdrawal of care, Hospice)? DNR status @ -No What co-morbidities impacted this encounter? (DM, HTN, Smoking, COPD, CAD, Cancer, CVA, ARF, Chemo, Hep., AIDS, mental health diagnosis, sleep apnea, morbid obesity)? @ -History of coronary artery disease with 7 previous stent Was patient admitted / discharged? Hospital course, mention meds given and route, prescriptions, significant lab abnormalities, going to OR and other pertinent info. @ -Patient originally seen by PA with complaints of nausea vomiting abdominal symptoms. Upon reevaluation by myself patient states symptoms actually started with chest discomfort and still has some discomfort, mild at this time rated 3/10. Patient is uncomfortabe with being discharged home. Troponin EKG and x- ray added, unremarkable. Patient will be admitted with cardiac consult. Admission orders written Undiagnosed new problem with uncertain prognosis? @ -No Drug Therapy requiring intensive monitoring for toxicity (Heparin, Nitro, Insulin, Cardizem)? @ -No Were any procedures done? @ -No Diagnosis/symptom? @ -Vomiting, chest pain Acute, or Chronic, or Acute on Chronic? @ -, Acute Uncomplicated (without systemic symptoms) or Complicated (systemic symptoms)? @ -Default Side effects of treatment? @ -No Exacerbation, Progression, or Severe Exacerbation? @ -No Poses a threat to life or bodily function? How? (Chest pain, [place], [place], pneumonia, PE, COPD, DKA, ARF, appy, cholecystitis, CVA, Diverticulitis, Homicidal, Suicidal, threat to staff... and all critical care pts) @ -Threat to cardiac function (Moy Wagner) - Lab Data Lab Results 03/16/24 03/16/24 03/16/24 Range/Units 12:55 12:58 12:58 WBC 13.2 H (3.8-10.6) k/uL RBC 4.75 (4.30-5.90) m/uL Hgb 13.8 (13.0-17.5) gm/dL Hct 41.2 (39.0-53.0) % MCV 86.8 (80.0-100.0) fL MCH 29.0 (25.0-35.0) pg MCHC 33.5 (31.0-37.0) g/dL RDW 13.3 (11.5-15.5) % Plt Count 292 (150-450) k/uL MPV 6.8 Neutrophils % 87 % Lymphocytes % 9 % Monocytes % 3 % Eosinophils % 0 % Basophils % 0 % Neutrophils # 11.5 H (1.3-7.7) k/uL Lymphocytes # 1.2 (1.0-4.8) k/uL Monocytes # 0.4 (0-1.0) k/uL Eosinophils # 0.0 (0-0.7) k/uL Basophils # 0.0 (0-0.2) k/uL Sodium 139 (137-145) mmol/L Potassium 3.6 (3.5-5.1) mmol/L Chloride 105 (98-107) mmol/L Carbon Dioxide 23 (22-30) mmol/L Anion Gap 11 mmol/L BUN 21 H (9-20) mg/dL Creatinine 0.48 L (0.66-1.25) mg/dL Est GFR (CKD-EPI)AfAm >90 (>60 ml/min/1.73 sqM) Est GFR (CKD-EPI)NonAf >90 (>60 ml/min/1.73 sqM) Glucose 197 H (74-99) mg/dL Calcium 9.3 (8.4-10.2) mg/dL Total Bilirubin 0.7 (0.2-1.3) mg/dL AST 15 L (17-59) U/L ALT 15 (4-49) U/L Alkaline Phosphatase 86 (38-126) U/L Troponin I <0.012 (0.000-0.034) ng/mL Total Protein 6.4 (6.3-8.2) g/dL Albumin 4.3 (3.5-5.0) g/dL Lipase 22 L (23-300) U/L Disposition Is patient prescribed a controlled substance at d/c from ED?: No Time of Disposition: 14:54 <Sacha Cameron - Last Filed: 03/16/24 14:53> Is patient prescribed a controlled substance at d/c from ED?: No <Moy Wagner - Last Filed: 03/16/24 17:46> Clinical Impression: Nausea & vomiting, Chest pain Disposition: [facility] Instructions (If sedation given, give patient instructions): Abdominal Pain (ED) Additional Instructions: Please return to the Emergency Department if symptoms worsen or any other concerns. Prescriptions: Metoclopramide [Reglan] 10 mg PO TID PRN #15 tab PRN Reason: Nausea Ondansetron Odt [Zofran Odt] 4 mg PO Q8HR PRN #10 tab PRN Reason: Nausea Referrals: Christoph Vu MD [Primary Care Provider] - 1-2 days
[2024-03-16 13:04] LABS: Basophils % (A) 0 %; Eosinophils % (A) 0 %; HCT 41.2 % (39.0-53.0); HGB 13.8 gm/dL (13.0-17.5); Lymphocytes # (A) 1.2 k/uL (1.0-4.8); Lymphocytes % (A) 9 %; MCHC 33.5 g/dL (31.0-37.0); MCV 86.8 fL (80.0-100.0); Mean Platelet Volume 6.8; Monocytes # (A) 0.4 k/uL (0-1.0); Monocytes % (A) 3 %; Neutrophils # (A) 11.5 k/uL (1.3-7.7); Neutrophils % (A) 87 %; Platelet Count 292 k/uL (150-450); RBC 4.75 m/uL (4.30-5.90); RDW 13.3 % (11.5-15.5); WBC 13.2 k/uL (3.8-10.6)
[2024-03-16] MEDS: diphenhydrAMINE 50 MG/ML 1 ML VIAL IVP STA (13:13)
[2024-03-16] MEDS: SODIUM CHLORIDE 0.9% 1,000 ML IV STA (13:16)
[2024-03-16] MEDS: METOCLOPRAMIDE 5 MG/ML 2 ML VIAL IVP STA (13:19)
[2024-03-16] MEDS: SODIUM CHLORIDE 0.9% 500 ML 500 ML IV STA (13:28)
[2024-03-16 13:33] LABS: ALT 15 U/L (4-49); AST 15 U/L (17-59); African American GFR (CKD) >90 (>60 ml/min/1.73 sqM); Albumin 4.3 g/dL (3.5-5.0); Alkaline Phosphatase 86 U/L (38-126); Anion Gap 11 mmol/L; Blood Urea Nitrogen 21 mg/dL (9-20); Calcium 9.3 mg/dL (8.4-10.2); Carbon Dioxide 23 mmol/L (22-30); Chloride 105 mmol/L (98-107); Glucose 197 mg/dL (74-99); Lipase 22 U/L (23-300); Non-African American GFR(CKD) >90 (>60 ml/min/1.73 sqM); Potassium 3.6 mmol/L (3.5-5.1); Sodium 139 mmol/L (137-145); Total Bilirubin 0.7 mg/dL (0.2-1.3); Total Protein 6.4 g/dL (6.3-8.2)
[2024-03-16] MEDS: FAMOTIDINE 20 MG/2 ML VIAL IV STA (14:37)
[2024-03-16] MEDS: KETOROLAC 15 MG/ML 1 ML VIAL IVP STA (14:44)
[2024-03-16] MEDS: HYDROmorphone 1 MG/ML 1 ML SYRINGE IVP STA (15:04)
[2024-03-16] MEDS: ONDANSETRON 4 MG ODT STARTER PACK 2 TAB BTL PO STA (16:38)
--- NOTE | 2024-03-16 16:44 | XR ---
EXAMINATION TYPE: XR chest 2V DATE OF EXAM: 03/16/2024 CLINICAL HISTORY: Chest pain TECHNIQUE: Frontal and lateral views of the chest are obtained. COMPARISON: 10/22/2023 FINDINGS: There is no focal air space opacity, pleural effusion, or pneumothorax seen. The cardiac silhouette size is within normal limits. The osseous structures are intact. IMPRESSION: No acute cardiopulmonary process. [facility], , 03/16/2024 4:42 PM
[2024-03-16] MEDS ORDERED: NITROGLYCERIN SL TABS 0.4 MG TAB SUBLINGUAL PRN (17:47)
[2024-03-16] MEDS ORDERED: DEXTROSE 50% SYRINGE 50 ML IVP PRN ×2 (18:15)
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
[2024-03-16] MEDS: ASPIRIN 81 MG PO STA (18:16)
[2024-03-16] MEDS: NITROGLYCERIN OINT 1 INCH/GM PACKET TOPICAL SCH (19:00)
[2024-03-16] MEDS ORDERED: ACETAMINOPHEN TAB 325 MG TAB PO PRN (19:53)
[2024-03-16 20:13] LABS: Glucose,Whole Blood 147 mg/dL (70-110)
[2024-03-16] MEDS: INSULIN ASPART (NovoLOG) 100 UNIT/ML VIAL SQ SCH (20:14)
[2024-03-16] MEDS: methocarbamoL 500 MG TAB PO SCH (20:18)
[2024-03-16] MEDS: APIXABAN 2.5 MG TABLET PO SCH (20:18)
[2024-03-16] MEDS: METOPROLOL SUCCINATE (ER) 50 MG TAB.ER.24H PO SCH (20:18)
[2024-03-16] MEDS: FAMOTIDINE 20 MG/2 ML VIAL IV SCH (20:21)
[2024-03-16] MEDS: DOCUSATE 100 MG CAP PO SCH (20:22)
[2024-03-16 20:28] VITALS: RESP 17
[2024-03-16] MEDS: ONDANSETRON 4 MG/2 ML VIAL IVP PRN (21:38)
[2024-03-17 06:07] LABS: Glucose,Whole Blood 142 mg/dL (70-110)
[2024-03-17 07:24] VITALS: BP 162/91; PULSE 66; TEMP 98.4
[2024-03-17] MEDS ORDERED: ASPIRIN 81 MG PO SCH (09:00)
[2024-03-17] MEDS ORDERED: ASPIRIN 325 MG TAB PO SCH (09:00)
[2024-03-17] MEDS ORDERED: LOSARTAN 25 MG TAB PO SCH (09:00)
[2024-03-17 09:06] LABS: Chol/HDL Ratio 4.32 Ratio; LDL Cholesterol,Calculated 63.3 mg/dL (0.0-131.0)
[2024-03-17] MEDS: ATORVASTATIN 40 MG TAB PO SCH (09:12)
[2024-03-17] MEDS: APIXABAN 5 MG TAB PO SCH (09:19)
[2024-03-17] MEDS: CLOPIDOGREL 75 MG TAB PO SCH (09:19)
[2024-03-17] MEDS: ISOSORBIDE MONONITRATE ER 30 MG TAB.ER.24H PO SCH (09:19)
[2024-03-17] MEDS: LOSARTAN 50 MG TAB PO SCH (09:20)
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
[2024-03-22] MEDS ORDERED: Dulaglutide [Trulicity] 1.5 MG/0.5 ML Each SQ SCH (09:00)
== END 2024-03-17 12:10 | disposition home or self-care (01) ==
LOC: EC 11:37 → 6NMEDSUR 17:48
PROVIDERS: ADMIT Family Medicine; ATTEND Family Medicine
DX: R07.2 Precordial pain (principal); K21.9 Gastro-esophageal reflux disease without esophagitis; E11.65 Type 2 diabetes mellitus with hyperglycemia; I48.0 Paroxysmal atrial fibrillation; I25.10 Atherosclerotic heart disease of native coronary artery without angina pectoris; E78.5 Hyperlipidemia, unspecified; I10 Essential (primary) hypertension; V29.99XD Rider (driver) (passenger) of other motorcycle injured in unspecified traffic accident, subsequent encounter; R19.7 Diarrhea, unspecified; Z79.1 Long term (current) use of non-steroidal anti-inflammatories (NSAID); Z79.02 Long term (current) use of antithrombotics/antiplatelets; Z79.01 Long term (current) use of anticoagulants; Z79.82 Long term (current) use of aspirin; Z79.85 Long-term (current) use of injectable non-insulin antidiabetic drugs; Z79.899 Other long term (current) drug therapy; Z87.891 Personal history of nicotine dependence; Z95.5 Presence of coronary angioplasty implant and graft; Z83.3 Family history of diabetes mellitus
CPT/HCPCS: 96376; 96361; 96374; 96375; 99285; 36415; 93005; 83880; 80061; 80053; 83690; 84484; 85025; 87040; 83036; 71046; G0378 ×2; J1200; J2765; J2405; J3490; J1171; J1885

== ENCOUNTER 2024-06-29 09:15 | Observation (INO) | payer OTHER ==
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
[2024-06-29] MEDS: ASPIRIN 81 MG PO STA (10:04)
[2024-06-29] MEDS: NITROGLYCERIN OINT 1 INCH/GM PACKET TOPICAL STA (10:05)
[2024-06-29] MEDS: SODIUM CHLORIDE 0.9% 1,000 ML IV STA (10:21)
[2024-06-29] MEDS: SODIUM CHLORIDE 0.9% 500 ML 500 ML IV STA (10:21)
--- NOTE | 2024-06-29 10:36 | XR ---
EXAMINATION TYPE: XR chest 2V DATE OF EXAM: 06/29/2024 10:31 AM COMPARISON: Chest radiographs from 03/16/2024 TECHNIQUE: XR chest 2V Frontal and lateral views of the chest. CLINICAL INDICATION:Male, 48 years old with history of Chest Pain; FINDINGS: Lungs/Pleura: There is no evidence of pleural effusion, focal consolidation, or pneumothorax. Pulmonary vascularity: Unremarkable. Heart/mediastinum: Cardiomediastinal silhouette is unremarkable. Musculoskeletal: No acute osseous pathology. IMPRESSION: No acute cardiopulmonary disease/process. [facility], , 06/29/2024 10:34 AM
[2024-06-29 10:39] LABS: Basophils % (A) 0 %; Eosinophils % (A) 0 %; HCT 42.4 % (39.0-53.0); HGB 13.9 gm/dL (13.0-17.5); Lymphocytes # (A) 1.4 k/uL (1.0-4.8); Lymphocytes % (A) 13 %; MCHC 32.7 g/dL (31.0-37.0); MCV 88.6 fL (80.0-100.0); Mean Platelet Volume 7.2; Monocytes # (A) 0.5 k/uL (0-1.0); Monocytes % (A) 4 %; Neutrophils # (A) 8.3 k/uL (1.3-7.7); Neutrophils % (A) 81 %; Platelet Count 250 k/uL (150-450); RBC 4.78 m/uL (4.30-5.90); RDW 13.6 % (11.5-15.5); WBC 10.3 k/uL (3.8-10.6)
[2024-06-29 10:47] LABS: ALT 26 U/L (4-49); AST 24 U/L (17-59); African American GFR (CKD) >90 (>60 ml/min/1.73 sqM); Albumin 4.2 g/dL (3.5-5.0); Alkaline Phosphatase 98 U/L (38-126); Amylase 64 U/L (30-110); Anion Gap 9 mmol/L; Blood Urea Nitrogen 21 mg/dL (9-20); Calcium 9.4 mg/dL (8.4-10.2); Carbon Dioxide 26 mmol/L (22-30); Chloride 104 mmol/L (98-107); Glucose 170 mg/dL (74-99); Lipase 30 U/L (23-300); Magnesium 1.7 mg/dL (1.6-2.3); Non-African American GFR(CKD) >90 (>60 ml/min/1.73 sqM); Potassium 4.1 mmol/L (3.5-5.1); Sodium 139 mmol/L (137-145); Total Bilirubin 0.7 mg/dL (0.2-1.3); Total Protein 6.4 g/dL (6.3-8.2)
[2024-06-29 10:50] LABS: Partial Thromboplastin Time 23.2 sec (22.0-30.0); Prothrombin Time 11.4 sec (10.0-12.5)
[2024-06-29] MEDS: MORPHINE SULFATE 4 MG/ML SYRINGE IVP STA (11:10)
[2024-06-29] MEDS ORDERED: NITROGLYCERIN SL TABS 0.4 MG TAB SUBLINGUAL PRN (12:47)
[2024-06-29] MEDS ORDERED: PROCHLORPERAZINE 5 MG TAB PO PRN (13:08)
[2024-06-29] MEDS ORDERED: NALOXONE 0.4 MG/ML 1 ML VIAL IV PRN (13:08)
[2024-06-29] MEDS ORDERED: DEXTROSE 50% SYRINGE 50 ML IVP PRN ×2 (13:17)
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
[2024-06-29 14:18] LABS: Influenza A Not Detected (Not Detectd); Influenza B Not Detected (Not Detectd); RSV Not Detected (Not Detectd)
[2024-06-29 16:39] LABS: Glucose,Whole Blood 174 mg/dL (70-110)
[2024-06-29 16:51] LABS: T4, Free (Free Thyroxine) 1.05 ng/dL (0.78-2.19)
[2024-06-29] MEDS: PANTOPRAZOLE 40 MG TABLET PO SCH (17:06)
[2024-06-29] MEDS: INSULIN LISPRO (HumaLOG) 100 UNIT/ML 10 mL VL SQ SCH (17:07)
[2024-06-29] MEDS: NITROGLYCERIN OINT 1 INCH/GM PACKET TOPICAL SCH (20:38)
[2024-06-29] MEDS: METOPROLOL SUCCINATE (ER) 50 MG TAB.ER.24H PO SCH (20:40)
[2024-06-29] MEDS: ONDANSETRON 4 MG/2 ML VIAL IVP PRN (20:40)
[2024-06-29] MEDS: MORPHINE SULFATE ER 15 MG TABLET PO SCH (20:40)
[2024-06-29] MEDS: PREGABALIN 75 MG CAP PO SCH (20:40)
[2024-06-29] MEDS: APIXABAN 5 MG TAB PO SCH (20:40)
[2024-06-29] MEDS: ATORVASTATIN 80 MG TAB PO SCH (20:40)
[2024-06-29] MEDS: methocarbamoL 500 MG TAB PO SCH (20:41)
[2024-06-29] MEDS: DOCUSATE 100 MG CAP PO SCH (22:10)
[2024-06-29] MEDS: CALCIUM CARBONATE 500 MG CHEWABLE PO PRN (23:23)
[2024-06-30 02:42] LABS: Chol/HDL Ratio 4.44 Ratio; LDL Cholesterol,Calculated 121.7 mg/dL (0.0-131.0)
[2024-06-30 07:45] VITALS: RESP 16
[2024-06-30] MEDS: ISOSORBIDE MONONITRATE ER 30 MG TAB.ER.24H PO SCH (08:36)
[2024-06-30] MEDS: CLOPIDOGREL 75 MG TAB PO SCH (08:37)
[2024-06-30] MEDS: LOSARTAN 25 MG TAB PO SCH (08:37)
[2024-06-30] MEDS ORDERED: ASPIRIN 81 MG PO SCH (09:00)
[2024-06-30] MEDS ORDERED: ASPIRIN 325 MG TAB PO SCH (09:00)
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
[2024-06-30 12:05] LABS: Glucose,Whole Blood 147 mg/dL (70-110)
--- NOTE | 2024-06-30 13:50 | CA ---
Transthoracic Echo Report Name: Dov Mims Age: 48 Gender: M : 1975 Exam Date: 06/30/2024 10:54 Exam Location: [facility] Ht (in): 73 Wt (lb): 150 Ordering Physician: Eleanor Evans Attending/Referring Phys: [id number], Cristina Electrical Intern Dee Chow, [place] Procedure CPT: Indications: LVF Cardiac Hx: Technical Quality: Poor, Technically difficult study, pt refusing subcostal images Contrast 1: Definity Total Dose (mL): 2 Contrast 2: Total Dose (mL): MEASUREMENTS (Male / Female) Normal Values 2D ECHO LV Diastolic Diameter PLAX 5.0 cm 4.2 - 5.9 / 3.9 - 5.3 cm LV Systolic Diameter PLAX 2.7 cm IVS Diastolic Thickness 1.4 cm 0.6 - 1.0 / 0.6 - 0.9 cm LVPW Diastolic Thickness 0.9 cm 0.6 - 1.0 / 0.6 - 0.9 cm LV Relative Wall Thickness 0.5 RV Internal Dim ED PLAX 3.2 cm M-MODE Aortic Root Diameter MM 2.8 cm LA Systolic Diameter MM 4.2 cm LA Ao Ratio MM 1.5 AV Cusp Separation MM 1.3 cm DOPPLER Mitral E Point Velocity 57.7 cm/s Mitral A Point Velocity 56.4 cm/s Mitral E to A Ratio 1.0 MV Deceleration Time 184.4 ms MV E' Velocity 5.6 cm/s Mitral E to MV E' Ratio 10.2 TR Peak Velocity 171.1 cm/s TR Peak Gradient 11.7 mmHg FINDINGS Left Ventricle Left ventricular ejection fraction is estimated at 50-55 %. Moderately increased septal wall thickness. No obvious regional wall motion abnormalities. Left ventricular cavity size normal. Right Ventricle Severe right ventricular dilatation. Right ventricular systolic pressure within normal limits. Right Atrium Normal right atrial size. Left Atrium Normal left atrial size. Mitral Valve Structurally normal mitral valve. Trace mitral regurgitation. No mitral stenosis. Aortic Valve Trileaflet aortic valve. No aortic valve stenosis or regurgitation. Tricuspid Valve Structurally normal tricuspid valve. Trace tricuspid regurgitation. No tricuspid stenosis. Pulmonic Valve Pulmonic valve not well visualized. Pericardium No pericardial or pleural effusion. Aorta Normal size aortic root and proximal ascending aorta. CONCLUSIONS Technically difficult study. Low ventricular systolic function borderline normal Limited Doppler study with trace mitral and tricuspid regurgitation Previewed by: Dr. Ajith Wall MD (Electronically Signed) Final Date: 30 June 2024 13:49
[2024-06-30 15:12] VITALS: BMI 19.8
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
[2024-06-30 15:32] VITALS: BP 93/56; PULSE 56; TEMP 98.1
== END 2024-06-30 16:51 | disposition home or self-care (01) ==
LOC: EC 09:15 → 6NMEDSUR 12:48
PROVIDERS: ADMIT Student in an Organized Health Care Education/Training Program; ATTEND Student in an Organized Health Care Education/Training Program
DX: R07.89 Other chest pain (principal); R11.2 Nausea with vomiting, unspecified; I25.10 Atherosclerotic heart disease of native coronary artery without angina pectoris; I10 Essential (primary) hypertension; E78.5 Hyperlipidemia, unspecified; E11.9 Type 2 diabetes mellitus without complications; K21.9 Gastro-esophageal reflux disease without esophagitis; G47.33 Obstructive sleep apnea (adult) (pediatric); I48.0 Paroxysmal atrial fibrillation; I25.2 Old myocardial infarction; F12.90 Cannabis use, unspecified, uncomplicated; F17.290 Nicotine dependence, other tobacco product, uncomplicated; Z11.52 Encounter for screening for COVID-19; Z91.148 Patient's other noncompliance with medication regimen for other reason; Z95.5 Presence of coronary angioplasty implant and graft; Z79.01 Long term (current) use of anticoagulants; Z79.02 Long term (current) use of antithrombotics/antiplatelets; Z79.891 Long term (current) use of opiate analgesic; Z79.899 Other long term (current) drug therapy; Z82.49 Family history of ischemic heart disease and other diseases of the circulatory system
CPT/HCPCS: 96374; 96375; 99285; 36415; 93005; 93306; 84439; 80061; 80053; 84443; 82150; 83690; 83735; 84484; 85025; 85610; 85730; 83036; 87636; 71046; G0378 ×2; J2270; J2405; Q9957